=== PATIENT | male | born 1950 | race Caucasian/White ===

== ENCOUNTER 2023-11-20 14:43 | Emergency (ER) | payer MEDICARE, OTHER, SELFPAY ==
[2023-11-20 14:49] VITALS: BP 121/64
[2023-11-20 15:17] LABS: % Basophils 0.5 % (0-2); % Eosinophils 3.2 % (0-6); % Immature Granulocytes 0.3 % (0-0.5); % Lymphocytes 24.6 % (20.5-51.1); % Monocytes 10.5 % (1.7-9.3); % Neutrophils 60.9 % (42.2-75.2); Absolute Eosinophils 0.2 10^3/uL (0-0.7); Absolute Lymphocytes 1.5 10^3/uL (1.2-3.4); Absolute Monocytes 0.7 10^3/uL (0.1-0.6); Absolute Neutrophils 3.8 10^3/uL (1.4-6.5); Hematocrit 36.6 % (39.0-52.0); Hemoglobin 12.2 g/dL (13.0-18.0); Mean Corp Hgb Conc. 33.3 g/dL (33.0-37.0); Mean Corpuscular Hgb 34.2 pg (27.0-31.0); Mean Corpuscular Volume 102.5 fL (80.0-94.0); Mean Platelet Volume 9.8 fL (7.4-10.4); Nucleated Red Blood Cells % 0 % (-); Platelet Count 239 10^3/uL (130-400); Red Blood Cell Count 3.57 10^6/uL (4.70-6.10); Red Cell Dist. Width 13.7 % (11.5-14.5); White Blood Cell Count 6.2 10^3/uL (4.8-10.8)
[2023-11-20 15:50] LABS: ALT (SGPT) < 10 U/L (0-50); AST (SGOT) 24 U/L (17-59); Alkaline Phosphatase 124 U/L (38-126); Blood Urea Nitrogen 24 mg/dl (9-20); Calcium 9.8 mg/dl (8.4-10.2); Carbon Dioxide 23 mmol/L (22-30); Chloride 105 mmol/L (98-107); Glucose 158 mg/dl (70-99); Potassium 4.8 mmol/L (3.5-5.1); Sodium 136 mmol/L (135-145); Total Bilirubin 0.6 mg/dl (0.2-1.3); Total Protein 7.1 g/dl (6.3-8.2); eGFR 41.78
[2023-11-20] MEDS: LIDOCAINE 4% PATCH 1 PATCH TOPICAL (19:45)
[2023-11-20] MEDS: MORPHINE SULFATE 2 MG IV (19:45)
--- NOTE | 2023-11-20 20:07 | ED.GENMED ---
History of Present Illness
General
Chief Complaint: Back Pain
Source: patient and spouse
Time Seen by Provider: 11/20/23 19:11
Travel History
Have you had any contact with someone who has COVID-19?: No
Do you have any symptoms of coronavirus? Fever > 100 degrees, chills, cough, shortness of breath, sore throat, loss of taste or smell, muscle aches, or headache?: No
History of Present Illness
History of Present Illness:
73-year-old male with past medical history of COPD, A-fib, CHF, CAD, previous [place], diabetes presenting to the emergency department at request of his solar electric practitioner for evaluation after patient had an accidental fall while on vacation in the [place] about 2 weeks ago stating he fell backwards onto his back and had significant pain and ecchymosis since the fall. Patient was prescribed tramadol and a muscle relaxant while abroad but states this did not really seem to help him. Patient
had a visit with his solar electric practitioner today and they were discussing the amount of back pain the patient is in and due to patient being anticoagulated on Xarelto it was recommended patient come to the ER for further evaluation for possible
retroperitoneal bleeding. states that patient's bruising has gotten significantly better since the fall. Patient denies any abdominal pain, focal weakness or numbness., Lightheadedness or dizziness, chest pain or shortness of breath.
Patient denies any other history of previous back injuries.
Past History
Past History
ED Past Medical History: Arrthythmia (Atrial fibrillation), CAD, CHF, COPD, CVA, GERD, HTN, Hypercholesterolemia, NIDDM, [place] and Other (Sleep apnea, PNA)
ED Past Surgical History: Cardiac (cabg, pacemaker, ICD) and Orthopedic
Social History
Tobacco: Smoker
Alcohol: Daily (Vodka 2-3 glasses)
Drug: None
Personal:
Living: with family
Employment: Employed
Family History
Family History: Other (Noncontributory)
Review of Systems
Review of Systems
All Other Systems: ROS reviewed and negative except as documented in HPI and ROS
Phy Exam
Physical Exam
Physical Exam:
GENERAL: Alert , in no apparent distress
EYE: clear conjunctiva b/l
HEAD: NCAT
ENT: o/p clr, mmm.
CARDIAC: Regular rate and rhythm .
LUNGS: Clear breath sounds bilaterally, no acute respiratory distress, no wheezes/rales/rhonchi
ABDOMEN: Soft, without focal tenderness, no r/g, no cvat
Back: Limited range of motion secondary to pain. Diffuse lumbar tenderness without any focality
NEUROLOGICAL: Alert and oriented
SKIN: Warm and dry, skin intact.
MUSCULOSKELETAL: well perfused.
PSYCH: Normal and appropriate interaction.
Scores
Heart Failure Risk
Heart Failure Risk Score: Not Applicable
Heart Score for Chest Pain Patients
STEMI patient?: Not applicable
Withdrawal Assessment of Alcohol
Withdrawal Assessment Completed?: Not applicable
Course
Orders/Labs/Results
Orders:
Orders
11/20/23 15:04
Complete Blood Count/With Diff Urgent
Comprehensive Metabolic Panel Urgent
11/20/23 19:14
CT Abd/pel Without Iv Or Oral Urgent
Comment:
Reason For Exam: fall, on xarelto,back/flank pain, CKD
11/20/23 19:21
Lidocaine [Lidocaine 4% Patch] 1 patch TOPICAL NOW STA
Morphine Sulfate 2 mg IV NOW STA
Abnormal Lab Results
11/20/23
15:04
RBC 3.57 L 10^6/uL
(4.70-6.10)
Hgb 12.2 L g/dL
(13.0-18.0)
Hct 36.6 L %
(39.0-52.0)
MCV 102.5 H fL
(80.0-94.0)
MCH 34.2 H pg
(27.0-31.0)
Absolute Monos (auto) 0.7 H 10^3/uL
(0.1-0.6)
Monocytes % 10.5 H %
(1.7-9.3)
BUN 24 H mg/dl
(9-20)
Creatinine 1.7 H mg/dL
(0.7-1.3)
Glucose 158 H mg/dl
(70-99)
11/20/23 15:04
11/20/23 15:04
Vital Signs
Initial and Last Documented VS:
Initial Vital Signs
Temp Pulse Resp BP Pulse Ox
98.2 F 77 18 121/64 98
11/20/23 14:49 11/20/23 14:49 11/20/23 14:49 11/20/23 14:49 11/20/23 14:49
Last Documented Vital Signs
Temp Pulse Resp BP Pulse Ox
98.2 F 78 18 140/75 98
11/20/23 14:49 11/20/23 21:26 11/20/23 21:26 11/20/23 21:26 11/20/23 21:26
MDM/Problems Addressed
Differential Diagnosis Includes:
Lumbar fracture, muscle strain, I have less concern for retroperitoneal bleeding given fall was 2 weeks ago and patient is hemodynamically stable with a baseline hemoglobin and baseline renal function
MDM/Problems Addressed:
73-year-old male presenting emergency department for evaluation at the request of solar electric practitioner for imaging of possible retroperitoneal bleeding from a fall 2 weeks ago. Patient has been taking tramadol and a muscle relaxant without any relief. No
fevers or infectious symptoms. Will obtain CT imaging. Will order pain medication. Disposition pending.
Chronic conditions affecting care: Arrhythmia
Acute Exacerbation and/or Progression of Chronic Illness: Arrhythmia
*Radiology
Radiology exam reviewed: radiology read reviewed
*Pulse Oximetry
Patient hypoxic: no
*Critical Care Note
Total Time (30-74mins, 75-104mins- exclusive of procedures): Not Applicable
Data Reviewed
Review of Other/Old Records Reveals: Labs and Records
Source: patient and physician
Patient Management
Escalation/DeEscalation of care consider admission/obs:
Patient has a T12 compression fracture of about 50% and a sacral fracture with 5 mm of displacement. This is nonoperative. Fall happened 2 weeks ago and patient is without any neurologic findings. He is stable for discharge home and outpatient
follow-up pediatrics. Prescription for Percocet sent to pharmacy for pain control. Aware of return precautions but otherwise stable for discharge home.
ED Attending Note
-
Portions of this chart may have been created with voice recognition software.� Occasional wrong word or��sound alike� substitutions may have occurred due to the inherent limitations of voice recognition software.
Discharge Plan
Departure
Patient Disposition: Home (Routine Discharge)
Date of Disposition: 11/20/23
Time of Disposition: 21:05
Patient with high blood pressure during this ER visit?: No
Discharge Problem:
T12 compression fracture, Closed sacral fracture
Instructions: Vertebral Compression Fracture (DC)
Prescriptions:
New
oxycodone-acetaminophen [Percocet] 5-325 mg Tablet
1 tab PO Q6HPRN PRN (Reason: pain) Qty: 10 0RF
No Action
pantoprazole 40 MG tablet,delayed release (DR/EC)
40 mg PO DAILY
rosuvastatin [Crestor] 40 MG tablet
40 mg PO NOON
carvedilol 3.125 MG tablet
3.125 mg PO BID
multivitamin with folic acid [Tab-A-Elli] 1 TABLET tablet
1 tab PO DAILY
aspirin 81 MG tablet,delayed release (DR/EC)
81 mg PO DAILY
coenzyme Q10 [Co Q-10] 100 MG capsule
100 mg PO DAILY
lisinopril 2.5 MG tablet
2.5 mg PO DAILY Qty: 30 2RF
Xarelto 20 MG tablet
20 mg PO QPM 0RF
metformin 1,000 MG tablet
1,000 mg PO DAILY Qty: 30 2RF
potassium chloride [Klor-Con M20] 20 mEq Tablet,Er Particles/Crystals
20 meq PO DAILY
vitamin E 400 unit Tablet
400 unit PO DAILY
escitalopram oxalate 10 mg Tablet
10 mg PO DAILY
Jardiance 10 mg Tablet
10 mg PO DAILY
thiamine HCl (vitamin B1) 100 mg Tablet
100 mg PO BID Qty: 100 0RF
folic acid 1 mg Tablet
1 mg PO DAILY Qty: 30 0RF
furosemide 40 mg Tablet
40 mg PO DAILY Qty: 30 0RF
Referrals:
Renzo Diez MD [Active] - (Pain Management)
Keegan Prado DO [Active] - (Ortho)
August Glasgow MD [Family Provider] -
Interventions
Interventions:
*Risk Screen - Suicide Last Done: 11/20/23 19:35
*General Assessment Last Done: 11/20/23 19:35
*Neglect/Abuse Screening Last Done: 11/20/23 19:35
ED- Fall Risk Assessment Last Done: 11/20/23 19:35
*ED COVID-19 Vaccine History Last Done: 11/20/23 19:35
*Nursing Disposition Last Done: 11/20/23 21:27
ED-Musculoskeletal Assessment Last Done: 11/20/23 19:35
Discharge Date and Time
Discharge Date/Time: 11/20/23 21:27
Print Language: TURKMEN
[2023-11-20 21:26] VITALS: BP 140/75
== END 2023-11-20 21:27 | disposition home or self-care (01) ==
LOC: EMR 14:43
PROVIDERS: Emergency Medicine; EMERGENCY PHYSICIAN Emergency Medicine; FAMILY PHYSICIAN Internal Medicine
DX: S22.080A Wedge compression fracture of T11-T12 vertebra, initial encounter for closed fracture (principal); S32.10XA Unspecified fracture of sacrum, initial encounter for closed fracture; W19.XXXA Unspecified fall, initial encounter; J44.9 Chronic obstructive pulmonary disease, unspecified; I48.91 Unspecified atrial fibrillation; I11.0 Hypertensive heart disease with heart failure; I50.9 Heart failure, unspecified; I25.10 Atherosclerotic heart disease of native coronary artery without angina pectoris; F17.200 Nicotine dependence, unspecified, uncomplicated
CPT/HCPCS: 99284; 96374; 74176; 80053; 85025

== ENCOUNTER → 2024-01-14 10:26 | Outpatient (REF) | payer MEDICARE, OTHER, SELFPAY | LOC: RAD 10:26 | PROVIDERS: ATTENDING PHYSICIAN Orthopaedic Surgery | DX: S32.10XA Unspecified fracture of sacrum, initial encounter for closed fracture (principal) | CPT/HCPCS: 77080 ==

== ENCOUNTER → 2024-01-26 16:50 | Outpatient (REF) | payer MEDICARE, OTHER, SELFPAY | LOC: RAD 16:50 | PROVIDERS: ATTENDING PHYSICIAN Internal Medicine | DX: R05.3 Chronic cough (principal) | CPT/HCPCS: 71046 ==

== ENCOUNTER → 2024-07-23 15:39 | Outpatient (REF) | payer MEDICARE, OTHER, SELFPAY | LOC: RCS 15:39 | PROVIDERS: ATTENDING PHYSICIAN Internal Medicine Interventional Cardiology; FAMILY PHYSICIAN Internal Medicine | DX: I35.0 Nonrheumatic aortic (valve) stenosis (principal) | CPT/HCPCS: 93306; Q9950 ==

== ENCOUNTER 2024-08-05 21:39 | Inpatient (IN) | payer MEDICARE, OTHER, SELFPAY ==
[2024-08-05] VITALS (8 sets, daily range): BP systolic 93–127; BP diastolic 40–79; BMI 24.6; BMI 24.1
[2024-08-05 16:47] LABS: % Basophils 0.7 % (0-2); % Immature Granulocytes 0.4 % (0-0.5); % Lymphocytes 23.3 % (20.5-51.1); % Neutrophils 64.6 % (42.2-75.2); Absolute Basophils 0.1 10^3/uL (0-0.2); Absolute Eosinophils 0.2 10^3/uL (0-0.7); Absolute Lymphocytes 1.8 10^3/uL (1.2-3.4); Absolute Monocytes 0.7 10^3/uL (0.1-0.6); Absolute Neutrophils 4.9 10^3/uL (1.4-6.5); Hematocrit 31.6 % (39.0-52.0); Hemoglobin 10.1 g/dL (13.0-18.0); Mean Corpuscular Hgb 32.4 pg (27.0-31.0); Mean Corpuscular Volume 101.3 fL (80.0-94.0); Mean Platelet Volume 10.3 fL (7.4-10.4); Nucleated Red Blood Cells % 0 % (-); Platelet Count 231 10^3/uL (130-400); Red Blood Cell Count 3.12 10^6/uL (4.70-6.10); Red Cell Dist. Width 13.8 % (11.5-14.5); White Blood Cell Count 7.6 10^3/uL (4.8-10.8)
[2024-08-05] MEDS: ZOFRAN 4 MG IV (16:51)
[2024-08-05] MEDS: DILAUDID 0.5 MG IV (16:52)
[2024-08-05 17:14] LABS: NT-proBNP 4590 pg/ml; Troponin I 0.034 ng/ml
--- NOTE | 2024-08-05 17:27 | ED.GENMED ---
History of Present Illness
General
Chief Complaint: Weakness
Source: patient, records, spouse and physician
Exam Limitations: none
Time Seen by Provider: 08/05/24 16:39
Nursing documentation reviewed up to this point in time: agreed with
History of Present Illness
History of Present Illness:
74-year-old male referred from nephrology for evaluation and admission has a pacemaker he is a drinker, recently stopped drinking he has fatigue he feels dizzy and falling had an echocardiogram recently and labs when I evaluated him he is
complaining of some mid abdominal pain, apparently his H&H has been dropping
Past History
Past History
ED Past Medical History: Arrthythmia (Atrial fibrillation), CAD, CHF, COPD, CVA, GERD, HTN, Hypercholesterolemia, NIDDM, [place] and Other (Sleep apnea, PNA)
ED Past Surgical History: Cardiac (cabg, pacemaker, ICD) and Orthopedic
Social History
Tobacco: Smoker
Alcohol: Former (Vodka 2-3 glasses)
Drug: None
Personal:
Living: with family
Employment: Employed
Family History
Family History: Other (Noncontributory)
Review of Systems
Review of Systems
All Other Systems: Not applicable
Constitutional: Reports weight loss and fatigue; Denies not done
EENT: Reports no symptoms
Respiratory: Reports trouble breathing
ABD/GI: Reports abdominal pain
: Reports no symptoms
Musculoskeletal: Reports no symptoms
Neurological: Reports dizzy and weakness
Phy Exam
Physical Exam
Physical Exam:
Physical Exam
General: Disheveled elderly male looks
Neck: Dry lips noted
Heart: s1/s2 regular rate and rhythm, no murmur. equal radial pulses.
Lungs: Crackles
Abdomen: Tender in the epigastric
Neuro: alert and oriented. no focal neurological deficits
Skin: no rash
Psychiatric: cooperative
Extremities: no edema.
Course
Orders/Labs/Results
Orders:
Orders
08/05/24 16:18
Electrocardiogram (*1) Urgent
Reason for Study: Fatigue / Weakness
EKG- Treatment ONCE
08/05/24 16:37
Complete Blood Count/With Diff Urgent
NT-proBNP Urgent
Troponin I Urgent
08/05/24 16:46
Add On- LAB Urgent
Tests Added?: lipase
HYDROmorphone [Dilaudid] 0.5 mg IV NOW STA
Ondansetron Injectable [Zofran] 4 mg IV NOW STA
CR Chest Portable - 1 View Urgent
Comment:
Reason For Exam: sob
Reason Study Needs to be Portable: Patient Unstable
08/05/24 16:48
CT Abd/pel Without Iv Or Oral Urgent
Comment:
Reason For Exam: pain naemai driking
CT Cervical Spine W/o Iv Contr Urgent
Comment:
Reason For Exam: falls
CT Head W/o Iv Contrast Urgent
Comment:
Reason For Exam: falls
08/05/24 16:49
Add On- LAB Urgent
Tests Added?: magnesium
08/05/24 17:04
Ammonia Urgent
Comprehensive Metabolic Panel Routine
Lipase Routine
Magnesium Routine
08/05/24 18:00
0.9% Sodium Chloride 1000 ml [Nss] 1,000 ml Mvi, Adult [Multivitamin] 10 ml Thiamine Injection 100 mg IV 125 mls/hr
08/05/24 18:[address] Non Medication Order As Directed
Physician Order: please TT me when CT complete and read
Above order entered?: Yes
08/05/24 20:03
Add On- LAB Routine
Tests Added?: Vitamin B12, TSH with reflex to T4, Vitamin B1
Abnormal Lab Results
08/05/24 08/05/24
16:37 17:04
RBC 3.12 L 10^6/uL
(4.70-6.10)
Hgb 10.1 L g/dL
(13.0-18.0)
Hct 31.6 L %
(39.0-52.0)
MCV 101.3 H fL
(80.0-94.0)
MCH 32.4 H pg
(27.0-31.0)
MCHC 32.0 L g/dL
(33.0-37.0)
Absolute Monos (auto) 0.7 H 10^3/uL
(0.1-0.6)
Sodium 134 L mmol/L
(135-145)
Chloride 97 L mmol/L
(98-107)
BUN 30 H mg/dl
(9-20)
Creatinine 1.7 H mg/dL
(0.7-1.3)
Glucose 197 H mg/dl
(70-99)
Ammonia < 9 L umol/L
(9-30)
08/05/24 16:37
08/05/24 17:04
Vital Signs
Initial and Last Documented VS:
Initial Vital Signs
Temp Pulse Resp BP Pulse Ox
98.0 F 60 16 117/68 98
08/05/24 16:14 08/05/24 16:14 08/05/24 16:14 08/05/24 16:14 08/05/24 16:14
Last Documented Vital Signs
Temp Pulse Resp BP Pulse Ox
98.0 F 75 15 127/56 100
08/05/24 16:14 08/05/24 20:00 08/05/24 20:00 08/05/24 19:00 08/05/24 20:00
*Radiology
Radiology exam reviewed: radiology read reviewed
*Pulse Oximetry
Patient hypoxic: no
*EKG
Interpreted by ED Provider?: Yes
Interpretation: abnormal
Comparison EKG: no comparison EKG present
Heart Rate: 78
Rate: normal
Rhythm: sinus
Ischemia: non-specific ST changes
*Manager Meeting Interpretation
Rate: normal
Interpretation: normal
Heart Rate: 78
Rhythm: sinus
*Critical Care Note
Total Time (30-74mins, 75-104mins- exclusive of procedures): Not Applicable
Update Note
Update Note:
Update patient feeling better after Dilaudid abdominal pains and new symptom for him will check CT to head cervical spine is has having fall CT of the abdomen without contrast admit patient is in agreement as is his spouse
Update imaging reports noted patient much improved with some Dilaudid and Zofran, lipase noted, perhaps this is all related to alcohol withdrawal or gastritis
ED Attending Note
-
Portions of this chart may have been created with voice recognition software.� Occasional wrong word or��sound alike� substitutions may have occurred due to the inherent limitations of voice recognition software.
Discharge Plan
Departure
Patient Disposition: Admit
Date of Disposition: 08/05/24
Time of Disposition: 20:07
Admit to: Med/Surg
Presentation/result/management discussed w/ accepting MD/DO: Hospitalist
Patient with high blood pressure during this ER visit?: Yes
Condition: Fair
Discharge Problem:
Permanent atrial fibrillation, Hypertensive heart disease with heart failure, Type 2 diabetes mellitus with diabetic nephropathy, Dyspnea, Acute on chronic systolic CHF (congestive heart failure), Renal insufficiency, Alcohol use disorder
Prescriptions:
No Action
pantoprazole 40 MG tablet,delayed release (DR/EC)
40 mg PO DAILY
rosuvastatin [Crestor] 40 MG tablet
40 mg PO NOON
carvedilol 3.125 MG tablet
3.125 mg PO BID
multivitamin with folic acid [Tab-A-Elli] 1 TABLET tablet
1 tab PO DAILY
aspirin 81 MG tablet,delayed release (DR/EC)
81 mg PO DAILY
coenzyme Q10 [Co Q-10] 100 MG capsule
100 mg PO DAILY
lisinopril 2.5 MG tablet
2.5 mg PO DAILY Qty: 30 2RF
Xarelto 20 MG tablet
20 mg PO QPM 0RF
metformin 1,000 MG tablet
1,000 mg PO DAILY Qty: 30 2RF
potassium chloride [Klor-Con M20] 20 mEq Tablet,Er Particles/Crystals
20 meq PO DAILY
vitamin E 400 unit Tablet
400 unit PO DAILY
escitalopram oxalate 10 mg Tablet
10 mg PO DAILY
Jardiance 10 mg Tablet
10 mg PO DAILY
thiamine HCl (vitamin B1) 100 mg Tablet
100 mg PO BID Qty: 100 0RF
folic acid 1 mg Tablet
1 mg PO DAILY Qty: 30 0RF
furosemide 40 mg Tablet
40 mg PO DAILY Qty: 30 0RF
oxycodone-acetaminophen [Percocet] 5-325 mg Tablet
1 tab PO Q6HPRN PRN (Reason: pain) Qty: 10 0RF
Referrals:
August Glasgow MD [Family Provider] -
Interventions
Interventions:
*Risk Screen - Suicide Last Done: 08/05/24 16:14
*General Assessment Last Done: 08/05/24 16:31
*Neglect/Abuse Screening Last Done: 08/05/24 16:14
ED- Fall Risk Assessment Last Done: 08/05/24 16:31
*ED COVID-19 Vaccine History Last Done: 08/05/24 16:31
ED- Cardiac Assessment Last Done: 08/05/24 16:31
ED- Neurological Assessment Last Done: 08/05/24 16:31
ED- Pulmonary Assessment Last Done: 08/05/24 16:31
Discharge Date and Time
Print Language: KENYAN
[2024-08-05 17:31] LABS: Ammonia < 9 umol/L (9-30)
[2024-08-05 17:35] LABS: ALT (SGPT) < 10 U/L (0-50); AST (SGOT) 22 U/L (17-59); Albumin 3.9 g/dl (3.5-5.0); Alkaline Phosphatase 98 U/L (38-126); Blood Urea Nitrogen 30 mg/dl (9-20); Calcium 8.8 mg/dl (8.4-10.2); Carbon Dioxide 27 mmol/L (22-30); Chloride 97 mmol/L (98-107); Estimated Creatinine Clearance 42 ml/min; Glucose 197 mg/dl (70-99); Lipase 42 U/L (23-300); Magnesium 2.2 mg/dl (1.6-2.3); Potassium 3.7 mmol/L (3.5-5.1); Sodium 134 mmol/L (135-145); Total Bilirubin 0.9 mg/dl (0.2-1.3); Total Protein 6.9 g/dl (6.3-8.2); eGFR 41.52
[2024-08-05] MEDS: MULTIVITAMIN 1011 ML IV (18:05)
[2024-08-05] MEDS: MULTIVITAMIN 1011 MG IV (18:05)
--- NOTE | 2024-08-05 19:38 | HPS.HSE ---
Family Physician
-
Family Physician: August Glasgow
Chief Complaint
-
shortness of breath/weakness
History of Present Illness
Patient is a 74-year-old male with past medical history significant for hypertension, CAD, CHF, COPD, CVA, GERD, hyperlipidemia, NIDDM and Hx [place] who presented to [facility] for evaluation of increased exertional shortness of breath and weakness.
Patient was at an apt with Dr. Broderick earlier today and she had him brought to ER for evaluation and treatment of severe shortness of breath and weakness in her office. Patient and describe severe shortness of breath with minimal exertion, and
states will happen at rest when lying flat. Denies any recent weight gain, reports weight loss of approximately 20 pounds in last 6 months. is visibly distraught by decline in past few months but mostly the last 2-3 weeks. She has been trying
to assist with ambulation at home and tearfully reports, 'I can't be the human walker anymore, I can't hold him up.' Patient has had multiple falls at home in the last few weeks resulting in head strikes. Patient denies any recently illness, chest
pain, nausea, vomiting, fever, chills, constipation, diarrhea or urinary symptoms.
Medical History
Past Medical History
Past Medical History: Reports Other
Additional Past Medical History:
benign hypertension
CAD
CHF
COPD
CVA
GERD
hyperlipidemia
NIDDM
Hx [place]
Past Surgical History: Reports Other
Additional Past Surgical History:
CABG x2
ICD implantation (2014)
cysto/left ureteroscopy/laser litho and stent (03/2020)
angioplasty (2014)
AICD (2022)
Social History
Tobacco: Smoker (1 pack per day for 50 years, minimal 50 pack year history )
Alcohol: Daily ('couple' vodkas everyday)
Drug: None
Personal:
Living: With Family
Employment: Retired
Family History
Family History: Not pertinent
Allergies / Home Medications
Allergies reflects when Allergies were last updated in [employer].
Home Medications with original date entered in [employer]
Allergy/Medication List:
Allergies
Allergy/AdvReac Type Severity Reaction Status Date / Time
No Known Allergies Allergy Verified 08/05/24 16:17
Home Medications
pantoprazole 40 mg tablet,delayed release 40 mg PO DAILY Gastrointestinal issue 09/28/13
rosuvastatin 40 mg tablet (Crestor) 40 mg PO QPM High cholesterol 12/19/19
carvedilol 3.125 mg tablet 3.125 mg PO BID Blood pressure 03/30/20
multivitamin with folic acid 400 mcg tablet (Tab-A-Elli) 1 tab PO DAILY Supplement 03/30/20
aspirin 81 mg tablet,delayed release 81 mg PO DAILY Blood clot prevention/tx 06/09/20
coenzyme Q10 100 mg capsule (Co Q-10) 100 mg PO DAILY Supplement 06/09/20
metformin 1,000 mg tablet 1,000 mg PO DAILY Diabetes #30 tabs 06/13/20
rivaroxaban 20 mg tablet (Xarelto) 20 mg PO QPM 06/13/20
empagliflozin 10 mg tablet (Jardiance) 10 mg PO DAILY Diabetes 12/04/22
potassium chloride 20 mEq tablet,extended release(part/cryst) (Klor-Con M) 20 meq PO DAILY Supplement 12/04/22
vitamin E 400 unit tablet 400 unit PO DAILY Supplement 12/04/22
folic acid 1 mg tablet 1 mg PO DAILY #30 tabs 04/04/23
furosemide 40 mg tablet 40 mg PO DAILY Fluid Retention/Swelling #30 tabs 04/04/23
duloxetine 60 mg capsule,delayed release (Cymbalta) 60 mg PO DAILY 08/05/24
Review of Systems
-
History Source: Patient and Family
Constitutional: Reports Weight Loss and Fatigue
EENT: Reports No Symptoms
Respiratory: Reports Cough and Trouble Breathing (shortness of breath with minimal exertion )
Cardiac: Reports No Symptoms
Abdomen/GI: Reports Other (decreased appetite)
: Reports No Symptoms
Musculoskeletal: Reports Other (generalized weakness)
Skin: Reports Other (multiple bruising new and old )
Neurological: Reports Weakness
Endocrine: Reports No Symptoms
Hematologic/Lymphatic: Reports No Symptoms
Psych: Reports No Symptoms
Physical Exam
Vital Signs
Vital Signs
Temp Pulse Resp BP Pulse Ox
98.0 F 73 25 127/56 98
08/05/24 16:14 08/05/24 19:15 08/05/24 19:15 08/05/24 19:00 08/05/24 19:15
Physical Exam
General: Well Developed, Well Nourished, No Apparent Distress, Comfortable, Conversant and Poor Appetite
HEENT: NormoCephalic, Moist mucous membranes, Atraumatic, [place] Conjunctivae, Nose Appears Normal and Ears Appear Normal
Respiratory: Clear, Rhonchi, Non Labored Respirations and Decreased Breath Sounds
Cardiac: S1/S2 and Regular Rhythm; No Murmur, Rub or Gallop
Breast: Deferred by me
GI: Soft, Non Tender, Normal Bowel Sounds and Distended; No Organomegaly
Rectal: Deferred by Provider
Genito-urinary: Deferred by me
Musculoskeletal: No Clubbing, No Cyanosis and No Edema
Skin: Warm, IV/Catheter Site and Other (multiple bruising new and old r/t recent falls at home ); No Rash
Neuro: Awake, Alert, AO x 3 and Nonfocal/grossly intact
Hematologic/Lymphatic: No Lymphadenopathy
Psych: Calm, Intact Judgment/Insight and Depressed
Laboratory Results
-
08/05/24 16:37
08/05/24 17:04
Laboratory Results
Total Bilirubin 0.9 mg/dl (0.2-1.3) 08/05/24 17:04
AST 22 U/L (17-59) 08/05/24 17:04
ALT < 10 U/L (0-50) 08/05/24 17:04
Alkaline Phosphatase 98 U/L (38-126) 08/05/24 17:04
Troponin I 0.034 ng/ml 08/05/24 16:37
Lipase 42 U/L (23-300) 08/05/24 17:04
Data Reviewed
-
Diagnostic Radiology: Report Reviewed by me (CXR: No acute cardiopulmonary process.)
CT Scan: Report Reviewed by me (Abd/Pelvis, C-Spine, Head (see reports))
Medical Tests (Nuc Med, Echo, EKG etc): Report Reviewed by me (EKG: Atrial Fibrillation Ventricular-paced rhythm ABNORMAL ECG)
Lab Data: Labs Reviewed by me (hgb 10.1/hct 31.6, BUN 30, Creat 1.7, )
Impression/Plan
-
IMPRESSION/PLAN:
#acute on chronic CHF
BNP:
ECHO (07/23/2024): Normal left ventricular chamber size. Moderate to severely reduced left
ventricular systolic function. Left ventricular ejection fraction is 35% by
Toribio's Method of Disc (visually 30 to 35%). Mid to distal lucas-septal and
apical akinesis. Mild concentric left ventricular hypertrophy.
Normal right ventricular size and function.
Calcified, restricted aortic valve. Peak gradient 38mmHg/Mean gradient 21mmHg -
using an LVOT of 2.1cm the estimated aortic valve area is 1.1cm2. Visually
aortic valve appears more stenotic and I question whether there could be low-
flow/low gradient severe aortic valve stenosis. Mild aortic regurgitation.
Tricuspid valve opens normally. Mild to moderate tricuspid regurgitation.
Estimated pulmonary artery pressure of 50-55 mmHg assuming a right atrial
pressure of 3 mmHg.
Mild to moderate mitral regurgitation.
- Admit to telemetry
- Consult cardiology
- IV Lasix
- continue aspirin and carvedilol
- daily weights
#failure to thrive
multiple falls at home
- PT/OT eval
#benign hypertension
- continue carvedilol
#CAD
#hyperlipidemia
- continue rosuvastatin
#anemia
hgb 10.1/hct 31.6
- monitor h/h
#GERD
- continue pantoprazole
#NIDDM
- continue Jardiance
- AccuChecks AC & HS
- SSI
#COPD
#CVA
#Hx SD
Code Status: DNR
DVT Prophylaxis: Xarelto
--- NOTE | 2024-08-05 19:41 | W.PN.UPDATE ---
Update Note
Progress Note Update
This is an addendum to H&P written by HELENE Malone
I saw and examined the patient.
The MOLDER FLOOR's note was reviewed and I agree with the note.
Comment:
Mr. Nando Russo is a 74 yo man with hx atrial fibrilation, CAD s/p CABG, CHF, COPD, CVA, GERD, HTN, HLD, NIDDM, hx alcohol abuse presents to the ER with shortness of breath and unstable gait. He was sent from Nephrology clinic. History
obtained from patient and at bedside. He has become increasingly short of breath, unable to take several steps without becoming very exhausted and needing a break. She reports he doesn't respond to her during these moments and looks
tremulous. He quit drinking several days ago - prior was drinking 2-3 drinks/night for years.
Triage VS: T 98, P 60, RR 16, BP 117/68, SpO2 98%
LABS: WBC 7.6, Hg 10.1, PLT 231, Na 134, K+ 3.7, Cl 97, BUN 30, Cr 1.7 (baseline), Ammonia < 9
BNP 4590, Lipase [address]
CERVICAL SPINE CT
IMPRESSION:
1. No acute intracranial abnormality noted.
2. No acute fracture or subluxation of the cervical spine.
Abdomen/Pelvis CT
IMPRESSION:
1. Chronic T12 compression deformity with possible superimposed acute/subacute component. Recommend correlation for any point tenderness in this region.
2. Partially healed minimally displaced fractures involving the posterior left 9th through 12th ribs.
3. No other significant acute abnormality identified in the abdomen or pelvis, within the limits of unenhanced CT, as described above.
4. Trace left pleural effusion.
CXR
IMPRESSION:
No acute cardiopulmonary process.
Heart Failure reduced EF, Acute Exacerbation
Severe
-TTE 07/23/24 with EF 35%; concern for low flow/low gradient severe ; mild to moderate MRJackelin GannCompared to prior study 04/01/2023 aortic valve gradients are lower than noted
previously but visually aortic valve appears severely stenotic. Left ventricular ejection fraction previously noted to be 45 to 50% and now visually
30 to 35%. Pulmonary artery pressure previously 34 mmHg now 50 to 55 mmHg.' Patient had follow up appt with Dr. Moreno later this month, has not yet discussed results
-lasix 60mg IV x 1 now and monitor response - will hold off on further Lasix until evaluated by Cardiology
-admit to telemetry
-cardiology consult
-BOIL OFF MACHINE OPERATOR CLOTH Coreg, Jardiance
-strict I/O, daily weights
-PT/OT, orthostats
CAD s/p CABG
NIDDM
HLD
Atrial Fibrillation - BOIL OFF MACHINE OPERATOR CLOTH Xarelto
Hx Alcohol Abuse
Unstable Gait
-F/U B12, TSH, Vitamin B1
-patient quit drinking 3 days ago
-trial of high dose thiamine
DVT PPx Xarelto
76 minutes spent on patient care
[2024-08-05 21:15] LABS: TSH Reflex To Free T4 0.87 uIU/ml (0.47-4.68)
[2024-08-05 21:34] LABS: Vitamin B12 325 pg/ml (239-931)
[2024-08-05] MEDS: KCL 20 MEQ PO (21:43)
[2024-08-05] MEDS: LASIX 60 MG IV (21:44)
[2024-08-05] MEDS: FLUSH (NSS) 1 FLUSH IV (21:46)
--- NOTE | 2024-08-05 22:15 | PTCARENOTE ---
Pt arrived from ED via stretcher and ambulated to bed. Pt is AAOx3, VSS sating 99% on 3L NC, and w/o complaints of pain. Pt is oriented to room, resting comfortably w/ call saini within reach.
[2024-08-05 22:45] LABS: Glucose - Point of Care 252 mg/dl (70-99)
[2024-08-05] MEDS: XARELTO 20 MG PO (22:45)
[2024-08-06] VITALS (8 sets, daily range): BP systolic 86–116; BP diastolic 46–59; PULSE 59–86; O2SAT 100
[2024-08-06] MEDS: THIAMINE INJECTION 255 MG IV ×3 (03:58→18:05)
[2024-08-06 07:33] LABS: Glucose - Point of Care 144 mg/dl (70-99)
[2024-08-06] MEDS: NOVOLOG FLEXPEN-LOW RESISTANCE SC (07:36)
[2024-08-06 07:45] LABS: Hemoglobin 9.2 g/dL (13.0-18.0); Mean Corp Hgb Conc. 31.7 g/dL (33.0-37.0); Mean Corpuscular Hgb 32.9 pg (27.0-31.0); Mean Corpuscular Volume 103.6 fL (80.0-94.0); Mean Platelet Volume 10.6 fL (7.4-10.4); Platelet Count 194 10^3/uL (130-400); Red Cell Dist. Width 13.6 % (11.5-14.5); White Blood Cell Count 6.5 10^3/uL (4.8-10.8)
[2024-08-06] MEDS: FARXIGA 10 MG PO (08:17)
[2024-08-06] MEDS: VITAMIN E 400 UNITS PO (08:17)
[2024-08-06] MEDS: THERAGRAN 1 TABLET PO (08:17)
[2024-08-06] MEDS: PROTONIX 40 MG PO (08:17)
[2024-08-06] MEDS: CYMBALTA DELAYED RELEASE 60 MG PO (08:17)
[2024-08-06] MEDS: FOLVITE 1 MG PO (08:17)
[2024-08-06] MEDS: COREG 3.125 MG PO ×2 (08:17→19:57)
[2024-08-06] MEDS: KCL 20 MEQ PO (08:17)
[2024-08-06] MEDS: ASPIR LOW (ENTERIC COATED) 81 MG PO (08:17)
[2024-08-06 08:33] LABS: Blood Urea Nitrogen 27 mg/dl (9-20); Calcium 8.6 mg/dl (8.4-10.2); Carbon Dioxide 30 mmol/L (22-30); Chloride 98 mmol/L (98-107); Estimated Creatinine Clearance 38 ml/min; Glucose 128 mg/dl (70-99); HDL Cholesterol 74 mg/dl; LDL Cholesterol, Calculated 42 mg/dl; Magnesium 2.1 mg/dl (1.6-2.3); Potassium 3.6 mmol/L (3.5-5.1); Sodium 139 mmol/L (135-145); Total Cholesterol 137 mg/dl (50-199); Triglyceride 108 mg/dl (10-149); Very Low Density Lipoprotein 21 mg/dl (0-30); eGFR 36.33
[2024-08-06 08:45] LABS: Iron 78 ug/dl (49-181)
--- NOTE | 2024-08-06 08:45 | CON.CAR ---
Addendum entered and electronically signed by Sangita OrrDO 08/06/24 20:21:
I saw and examined the patient.
The Handkerchief Folder's note was reviewed and I agree with the note.
Comment: I had the pleasure to see Nando Russo in 402 bed 1. Enmnauel is a 74-year-old male with CAD, history of CABG x2 in 2008 (VERNON to LAD, SVG to LPLB), posterior circulation stroke in setting of coronary angiogram prior to CABG with resultant
vertigo, subsequent balloon angioplasty of the VERNON to LAD 2014, permanent atrial fibrillation (on Xarelto 15 mg), ischemic cardiomyopathy, ICD 2014, aortic stenosis, alcohol abuse, smoker, depression. He was seen by Dr. Moreno in the office
06/2024 and was advised ER evaluation due to frequent falls, nausea. He declined ER evaluation but did get an echocardiogram on 07/23/2024: EF 35%, mid to distal anterior septal and apical akinesis, normal RV size and function, calcified restricted
AV, peak/mean 38/21 mmHg, WES 1.1 cm�. Visually AV appears more stenotic and question whether there could be low-flow low gradient severe , mild AI, mild to moderate TR, mild to moderate MR. Compared to echo 04/01/2023 AV gradients lower but AV
appears severely stenotic. LVEF previously 45 to 50%, now 30 to 35%. PAP 50-55 mmHg, previously 34 mmHg. He was seen with Dr. Broderick 08/05/2024 and sent to ED for severe shortness of breath and weakness with minimal exertion. Denies weight gain.
Reports 20 pound weight loss in past 6 months. reports significant decline in past 2 to 3 weeks and has been unable to support him with ambulation. Patient can only walk very short distance such as to bathroom without becoming weak and having
falls. He has had multiple falls in the last few weeks. Complains of dizziness, feeling like he blacks out, leading to fall. Patient reports no alcohol in the past week but previously drinking 2-3 vodka drinks daily. Yesterday after presenting
to ED complained of severe abdominal pain. Was given Dilaudid in the ED. Unenhanced CT scan abdomen with chronic T12 compression deformity, possibly superimposed acute/subacute component, partially healed rib fractures no other acute abnormality.
GEN: NAD, out of bed to chair
HEENT: supple, anicteric, mmm
LUNGS: CTA, no wheezes/rales
CV: Irregular irregular, 2 out of 6 systolic ejection murmur heard throughout precordium
ABD: soft, BS+, NT/ND
EXT: No edema
Plan:
Acute on chronic Hypoxic respiratory insufficiency c/w acute heart failure with reduced ejection fraction
-Recent echocardiogram 07/23/2024 shows decline in LV function to EF of 30 to 35% with concern for severe aortic stenosis. Also with new elevation in PA pressures. PAP 50 to 55 mmHg
-Has previously had discussions regarding possible TAVR evaluation however he is fearful due to prior CVA following cardiac catheterization in 2008
-He is open to considering and Will discuss with patient's outpatient set illustrator, Dr. Moreno. Patient does have an outpatient appointment with Dr. Moreno next Friday.
-ER BNP 4590, negative troponin, BUN/creatinine stable range 30/1.7., Hemoglobin 10.1.
-Continue usual outpatient heart failure meds including Jardiance, carvedilol
-gentle IV diuresis in setting of
-Will get remote interrogation of ICD to make sure no arrhythmias in setting of dizziness, pt report of blacking out. Pt denies ICD shock
-Daily weights, strict I's and O's
-Check orthostatic vital signs
-PT/OT
A-fib is rate controlled
-Should be on Xarelto 15 mg daily (creat clearance 39 based on creat 1.9 08/06/24, wt 182)
-Hgb trended down overnight - monitor. No complaints of melana, no BM in 3 days.
Continue ASA, statin for history of CAD, no anginal symptoms, troponin negative.
Frequent falls�PT OT evaluation
Original Note:
Consultation
Consultation Request
Date/Time Consultation Requested: 08/05/20242102
Date/Time Consultation Performed: 08/06/2024 0848
Requesting Provider: JOHN Hicks
Performing Provider: JOHN Pichardo for Dr Sangita Orr
Reason for Consultation: heart failure
Medical History
-
Chief Complaint: shortness of breath
History of Present Illness:
74-year-old male with CAD, history of CABG x2 in 2008 (VERNON to LAD, SVG to LPLB), posterior circulation stroke in setting of coronary angiogram prior to CABG with resultant vertigo, subsequent balloon angioplasty of the VERNON to LAD 2014, permanent
atrial fibrillation (on Xarelto 15 mg), ischemic cardiomyopathy, ICD 2014, aortic stenosis, alcohol abuse, smoker, depression. He was seen by Dr. Moreno in the office 06/2024 and was advised ER evaluation due to frequent falls, nausea.
He declined ER evaluation but did get an echocardiogram on 07/23/2024: EF 35%, mid to distal anterior septal and apical akinesis, normal RV size and function, calcified restricted AV, peak/mean 38/21 mmHg, WES 1.1 cm�. Visually AV appears more
stenotic and question whether there could be low-flow low gradient severe , mild AI, mild to moderate TR, mild to moderate MR. Compared to echo 04/01/2023 AV gradients lower but AV appears severely stenotic. LVEF previously 45 to 50%, now 30 to
35%. PAP 50-55 mmHg, previously 34 mmHg.
He was seen with Dr. Broderick 08/05/2024 and sent to ED for severe shortness of breath and weakness with minimal exertion. Denies weight gain. Reports 20 pound weight loss in past 6 months. reports significant decline in past 2 to 3 weeks and
has been unable to support him with ambulation. Patient can only walk very short distance such as to bathroom without becoming weak and having falls. He has had multiple falls in the last few weeks. Complains of dizziness, feeling like he blacks
out, leading to fall. Patient reports no alcohol in the past week but previously drinking 2-3 vodka drinks daily. Yesterday after presenting to ED complained of severe abdominal pain. Was given Dilaudid in the ED. Unenhanced CT scan abdomen with
chronic T12 compression deformity, possibly superimposed acute/subacute component, partially healed rib fractures no other acute abnormality.
ED workup: BNP 4590, BUN/creatinine 30/1.7 (baseline) NA 134, K3.7, Troponin 0.034, Hgb 10.1.
EKG: V paced, underlying A-fib
Head CT: No acute intracranial abnormality, no acute fracture of cervical spine
Chest x-ray: No acute cardiopulmonary process
PMH:
Chronic HFrEF
Moderate to severe with peak/mean 33/19 mmHg by echo 11/14/22
CM EF 25% by echo 06/09/20 and then improved to 45% by echo 11/14/22, echo 07/23/2024 EF 35%
COPD
CKD 3b
Permanent atrial fibrillation
Chronic Xarelto OAC
s/p Medtronic ICD 2014 s/p generator change 12/25/22
CAD
s/p CABG with VERNON to LAD and SVG to L PLB in 2008
cath with balloon angioplasty at VERNON to LAD ostial region in 2014
Type 2 DM
HLD
HTN
BPH
GERD
Ongoing tobacco use
ETOH use disorder, likely moderate to severe
LBBB
Past Medical History
Past Medical History: Other (in HPI)
Past Surgical History: Cardiac (CABG, ICD)
Social History
Tobacco: Smoker
Alcohol: Daily (drinks 3-4 drinks most days of the week)
Drug: None
Personal:
Living: With Family
Family History
Family History: CAD, Cancer and Hypertension
Allergies / Home Medications
Allergy/AdvReac Type Severity Reaction Status Date / Time
No Known Allergies Allergy Verified 08/05/24 16:17
�Medication �Instructions �Recorded �Confirmed �Type
pantoprazole 40 mg tablet,delayed 40 mg PO DAILY Gastrointestinal 09/28/13 08/05/24 History
release issue
rosuvastatin 40 mg tablet (Crestor) 40 mg PO QPM High cholesterol 12/19/19 08/05/24 History
carvedilol 3.125 mg tablet 3.125 mg PO BID Blood pressure 03/30/20 08/05/24 History
multivitamin with folic acid 400 1 tab PO DAILY Supplement 03/30/20 08/05/24 History
mcg tablet (Tab-A-Elli)
aspirin 81 mg tablet,delayed 81 mg PO DAILY Blood clot 06/09/20 08/05/24 History
release prevention/tx
coenzyme Q10 100 mg capsule (Co 100 mg PO DAILY Supplement 06/09/20 08/05/24 History
Q-10)
metformin 1,000 mg tablet 1,000 mg PO DAILY Diabetes #30 tabs 06/13/20 08/05/24 Rx
rivaroxaban 20 mg tablet (Xarelto) 20 mg PO QPM 06/13/20 08/05/24 Rx
empagliflozin 10 mg tablet 10 mg PO DAILY Diabetes 12/04/22 08/05/24 History
(Jardiance)
potassium chloride 20 mEq 20 meq PO DAILY Supplement 12/04/22 08/05/24 History
tablet,extended
release(part/cryst) (Klor-Con M)
vitamin E 400 unit tablet 400 unit PO DAILY Supplement 12/04/22 08/05/24 History
folic acid 1 mg tablet 1 mg PO DAILY #30 tabs 04/04/23 08/05/24 Rx
furosemide 40 mg tablet 40 mg PO DAILY Fluid 04/04/23 08/05/24 Rx
Retention/Swelling #30 tabs
duloxetine 60 mg capsule,delayed 60 mg PO DAILY 08/05/24 08/05/24 History
release (Cymbalta)
Review of Systems
-
History Source: Patient
Constitutional: No Symptoms
Physical Exam
Vital Signs
Temp Pulse Resp BP Pulse Ox
98 F 60 14 114/56 98
08/06/24 08:30 08/06/24 08:17 08/06/24 03:00 08/06/24 08:17 08/06/24 08:30
Lab Results
08/06/24 07:14
08/06/24 07:14
Troponin I 0.034 ng/ml 08/05/24 16:37
Byy-[id number]-[id number] Pept 4590 pg/ml 08/05/24 16:37
GEN: No distress, awake, Ox3
HEENT: supple, anicteric, mmm
LUNGS: CTA, no wheezes/rales
CV: Irregular irregular, 2 out of 6 systolic ejection murmur heard throughout precordium
ABD: soft, BS+, NT/ND
EXT: No edema
NEURO: Gross non-focal
SKIN: No rash
Impression / Plan
-
Primary Care Provider: Dr. Glasgow
Primary Lamination Operator: Dr. Moreno
Assessment:
Shortness of breath
HFrEF
Moderate to severe with peak/mean gradients 38/21, WES 1.1 cm�. Visually aortic valve appears more stenotic, question of low-flow/low gradient severe , mild AI, echo 07/23/2024
CM w/ variable EF, most recent echo 07/23/2024 w/ decline in EF 30-35%
Acute on chronic HFrEF, NYHA class 3-4
Fall at home, possibly syncope
COPD
CKD 3b
Hypomagnesemia
Permanent atrial fibrillation
Chronic Xarelto OAC, creat clearance 39 based on creat 1.9 08/06/2024.
s/p Medtronic ICD 2014 s/p generator change 12/25/22
CAD
s/p CABG with VERNON to LAD and SVG to L PLB in 2008
cath with balloon angioplasty at VERNON to LAD ostial region in 2014
Type 2 DM
HLD
HTN
BPH
GERD
Ongoing tobacco use
ETOH use disorder, likely moderate to severe
LBBB
ECHO 12/20/19: 25-30%, global hypokinesis with mid anteroseptal, mid anterior, apical akinesis, dyskinesis of inferior apex, MAC, mild to moderate , peak/mean gradients 37/18 mmHg, WES 1.0 cm�, mild TR, PAP 37 mmHg
Echo 06/09/20: EF 25-30%, mild MR, mod peak/mean 30/15 mmHg WES 1.3 cm sq, dilated RV with grossly normal function
Echo 10/25/22: EF 45%, apical and anteroseptal wall akinesis, trace MR, mod to sev with peak/mean 33/19 mmHg and WES 0.8 cm sq
Echo 07/23/2024: EF 35% (visually 30 to 35%, mid to distal anteroseptal and apical akinesis, normal RV size and function, calcified, restricted AV. Peak/mean AV gradients 38/21. WES 1.1 cm�. Visually AV appears more stenotic, question whether there
could be a low flow/low gradient severe . Mild AI I. Mild to moderate TR, PAP 50 to 55 mmHg, mild to moderate MR
Plan:
-Presented 08/05/2024 with severe shortness of breath and weakness with minimal exertion. Denies weight gain. Wt 180 lbs in cardiology office 07/06/2024. Overall outpatient wt down 24 lbs over past year (wt 204 lbs 05/2023). Reports 20 pound
weight loss in past 6 months. reports significant decline in past 2 to 3 weeks with worsening weakness and has been unable to support him with ambulation. Patient can only walk very short distance such as to bathroom without becoming weak and
having falls. He has had multiple falls in the last few weeks. Complains of dizziness, feeling like he blacks out, leading to fall. Patient reports no alcohol in the past week but previously drinking 2-3 vodka drinks daily.
-Of note recent echo 07/23/2024 shows decline in LV function to EF of 30 to 35% with concern for severe aortic stenosis. Also with new elevation in PA pressures. PAP 50 to 55 mmHg
-To consider right and left heart cath to further evaluate aortic stenosis and possible consideration for TAVR. It looks like this was considered during past admission 03/2023 but there was concern about patient having posterior circulation CVA
after cath prior to CABG in 2008. Patient had cath in 2014 without adverse event.
-ER BNP 4590, negative troponin, BUN/creatinine stable range 30/1.7., Hemoglobin 10.1.
-Continue usual outpatient heart failure meds including Jardiance, carvedilol
-gentle IV diuresis in setting of
Will get remote interrogation of ICD to make sure no arrhythmias in setting of dizziness, pt report of blacking out. Pt denies ICD shock
Daily weights, strict I's and O's
-Check orthostatic vital signs
-PT/OT
A-fib is rate controlled
Should be on Xarelto 15 mg daily (creat clearance 39 based on creat 1.9 08/06/24, wt 182) -appropriate dose. Changed med order.
-Hgb trended down overnight - monitor. No complaints of melana, no BM in 3 days.
Continue ASA, statin for history of CAD, no anginal symptoms, troponin negative.
Data Reviewed
-
EKG: Tracing Personally Visualized and interpreted
Medical Tests (Nuc Med, Echo etc): Report Reviewed by me
Labs: Labs Reviewed by me
[2024-08-06 08:55] LABS: Percent Saturation 19 % (20-50); Total Iron Binding Capacity 393 ug/dl (261-462)
--- NOTE | 2024-08-06 09:32 | W.PN.HOSP.TC ---
Today's Communication/Plan
-
see outlined plan below
Assessment / Plan
Assessment / Plan
Assessment:
Presentation with SOB, associated with acute CHF
Acute hypoxic respiratory insufficency on 2L, associated with acute CHF
Known severe
- s/p TTE 07/23 with concern for low flow/low gradient severe ; mild to moderate MR. Compared to prior study 04/01/2023 aortic valve gradients are lower than noted previously but visually aortic valve appears severely stenotic. Left ventricular
ejection fraction previously noted to be 45 to 50% and now visually 30 to 35%. Pulmonary artery pressure previously 34 mmHg now 50 to 55 mmHg.
- s/p IV Lasix in ER; start 40mg daily IV - requires intensive monitoring of I/Os, weights, lytes. holding oral Lasix
- GDMT: continue Coreg, Jardiance
- DCA cards consulted
acute anemia on chronic anemia
- heme test stools
- anemia workup for substrates, if normal, hemolysis panel
CKD stage 3b
- monitor Cr with diuresis
CAD s/p CABG
Hx of IA
HX of ICD 2022
HLD
- continue ASA/Statin/BB
Essential HTN
- continue BP meds
NIDDM
- hold Metformin. continue Jardiance.
- SSI
- A1c
parox Atrial Fibrillation
- continue Coreg/Xarelto
Hx Alcohol Abuse
Unstable Gait
- B12 normal, Folate pending, B1 pending
- MSAS protocol
- PT/OT
- continue MV. Thiamine.
Chronic T12 compression deformity with possible superimposed acute/subacute component
Partially healed minimally displaced fractures involving the posterior left 9th through 12th ribs
HX of COPD
- prn nebs
hx of CVA
- continue ASA/Statin
GERD
- continue PPI
DVT ppx: Xarelto
Code: DNR/DNI
Anticipated Discharge: > 48 hours
Subjective/Interval History
-
Date of Service: August 06, 2024
denies any SOB or chest pain
on 2L NC
Objective Data
-
Labs:
Laboratory Results
08/06/24
07:14
WBC 6.5
Hgb 9.2 L
Hct 29.0 L
Plt Count 194
Sodium 139
Potassium 3.6
Chloride 98
Carbon Dioxide 30
BUN 27 H
Creatinine 1.9 H
Glucose 128 H
Calcium 8.6
Vital Signs:
Vital Signs
Temp Pulse Resp BP Pulse Ox
98 F 60 14 114/56 98
08/06/24 08:30 08/06/24 08:17 08/06/24 03:00 08/06/24 08:17 08/06/24 08:30
I&O
08/05/24 08/06/24 08/07/24
06:59 06:59 06:59
Intake Total 480 / 480
Output Total 1350 / 1350
Balance -870 / -870
Physical Exam
-
General: No Apparent Distress
HEENT: Normocephalic and Atraumatic
Respiratory: Wheezes and Crackles
Cardiac: Regular Rhythm and S1/S2
GI: Soft and Nontender
Genito-urinary: No Costovertebral Tender
Musculoskeletal: No Edema
Neuro: AO x 3
Hematologic / Lymphatic: No Lymphadenopathy
Psych: Calm
Data Reviewed
-
Total Time Spent with Patient (in minutes): 51
Labs: Labs Reviewed by me
[2024-08-06 09:56] LABS: Ferritin 34.6 ng/ml (17.9-464.0)
[2024-08-06 10:28] LABS: Folate > 20.0 ng/ml (2.76-20); Vitamin B12 454 pg/ml (239-931)
--- NOTE | 2024-08-06 10:43 | PN.CDI ---
CDI
- -
CDI:
Physician Documentation Request
Admit Date: 08/05/24 21:39
Dear Doctor Brandy,
Please review the following and provide your response in the progress notes.
Clinical Indicators:
- 08/06 PN indicates paroxysmal atrial fibrillation
- Prior admission DC Summary 04/04/2023 indicates permanent atrial fibrillation
- ICD 2014 with generator change 2022
If possible, please provide further specificity regarding atrial fibrillation, such as:
Paroxysmal atrial fibrillation - terminates spontaneously or with intervention within 7 days of onset
Permanent atrial fibrillation - when a decision has been made to accept the presence of AF and there is no further attempt to restore or maintain sinus rhythm
Other - please specify
Use of terms such as suspected, likely, concern for, or probable (associated with a specific diagnosis that is being evaluated, monitored, or treated as if it exists) are acceptable and can be coded in the inpatient setting, when documented at the
time of discharge.
Thank you,
Masood Gutierrez RN
CDI Specialist
Please use your independent medical judgment in providing your response.
[2024-08-06] MEDS: MIRALAX 17 GRAMS PO (11:07)
[2024-08-06 12:09] LABS: Glucose - Point of Care 253 mg/dl (70-99)
[2024-08-06] MEDS: NOVOLOG FLEXPEN-LOW RESISTANCE 3 UNITS SC (12:26)
--- NOTE | 2024-08-06 12:37 | CM ---
CM met with pt at bedside to complete IA. He lives with his in a 2SH with 2 CARY
There is a full flight to second floor; pt has a stairglide.
Pt reports being independent with his ADLs; He has a SPC and WW at home for use as needed
Pt advised he uses a nebulizer occassionally.
Discussed SA resources and community supports for ETOH; pt declined further information, stating he had not had a drink in a week and is 'done with it'. TT to Dr. Nava to make him aware.
Plan: Discharge to home with no needs per patient.
PCP- ISMAEL/Neeraj
Rx- August Glasgow
[2024-08-06] MEDS: LASIX 20 MG IV (13:47)
--- NOTE | 2024-08-06 16:22 | W.CARD.DEVCH ---
Cardiac Device Check
-
Device: Implanted Cardioverter-Defibrillator
Chief Librarian Circulation Department: [employer]
The patient's device was interrogated with assistance of the device account retention representative followed by a complete physician review. The device had normal function. No abnormalities seen.
Device interrogated due to pt reports of falls/blacking out. No ventricular arrhythmias, no ICD shocks, pt 100% afib, 0% apaced, 50.4% Vpaced.
[2024-08-06 16:25] LABS: Glucose - Point of Care 235 mg/dl (70-99)
[2024-08-06] MEDS: NOVOLOG FLEXPEN-LOW RESISTANCE 2 UNITS SC (17:32)
[2024-08-06] MEDS: XARELTO 15 MG PO (17:33)
[2024-08-06] MEDS: CRESTOR 40 MG PO (17:33)
[2024-08-06] MEDS: NON-FORMULARY ITEM 1 UNIT RIGHT EYE ×4 (17:33→21:38)
[2024-08-06] MEDS: SENOKOT-S 1 TABLET PO (19:57)
[2024-08-06 21:12] LABS: Glucose - Point of Care 231 mg/dl (70-99)
[2024-08-07] VITALS (7 sets, daily range): BP systolic 104–122; BP diastolic 45–65; BMI 25.1
[2024-08-07] MEDS: THIAMINE INJECTION 255 MG IV ×3 (04:36→18:01)
[2024-08-07 05:44] LABS: Hematocrit 27.7 % (39.0-52.0); Hemoglobin 8.9 g/dL (13.0-18.0); Mean Corp Hgb Conc. 32.1 g/dL (33.0-37.0); Mean Corpuscular Hgb 32.5 pg (27.0-31.0); Mean Corpuscular Volume 101.1 fL (80.0-94.0); Mean Platelet Volume 10.9 fL (7.4-10.4); Platelet Count 172 10^3/uL (130-400); Red Blood Cell Count 2.74 10^6/uL (4.70-6.10); Red Cell Dist. Width 13.7 % (11.5-14.5); Reticulocyte Count 2.6 % (0.4-2.8); White Blood Cell Count 6.6 10^3/uL (4.8-10.8)
[2024-08-07 06:10] LABS: Blood Urea Nitrogen 26 mg/dl (9-20); Calcium 8.7 mg/dl (8.4-10.2); Carbon Dioxide 27 mmol/L (22-30); Chloride 100 mmol/L (98-107); Estimated Creatinine Clearance 38 ml/min; Glucose 136 mg/dl (70-99); LDH 150 U/L (120-246); Phosphorus 2.9 mg/dl (2.5-4.5); Sodium 138 mmol/L (135-145); eGFR 36.33
[2024-08-07 06:16] LABS: Potassium 3.5 mmol/L (3.5-5.1)
[2024-08-07 07:38] LABS: Glucose - Point of Care 193 mg/dl (70-99)
[2024-08-07] MEDS: KCL 20 MEQ PO (07:38)
[2024-08-07] MEDS: PROTONIX 40 MG PO (07:38)
[2024-08-07] MEDS: THERAGRAN 1 TABLET PO (07:38)
[2024-08-07] MEDS: ASPIR LOW (ENTERIC COATED) 81 MG PO (07:38)
[2024-08-07] MEDS: FOLVITE 1 MG PO (07:38)
[2024-08-07] MEDS: LASIX 20 MG IV (07:38)
[2024-08-07] MEDS: FARXIGA 10 MG PO (07:38)
[2024-08-07] MEDS: VITAMIN E 400 UNITS PO (07:38)
[2024-08-07] MEDS: COREG 3.125 MG PO ×2 (07:38→21:14)
[2024-08-07] MEDS: MIRALAX 17 GRAMS PO (07:38)
[2024-08-07] MEDS: CYMBALTA DELAYED RELEASE 60 MG PO (07:38)
[2024-08-07] MEDS: NON-FORMULARY ITEM 1 UNIT RIGHT EYE ×4 (07:39→12:39)
[2024-08-07] MEDS: NOVOLOG FLEXPEN-LOW RESISTANCE 1 UNITS SC ×2 (07:39→17:15)
[2024-08-07] MEDS: SENOKOT-S 1 TABLET PO ×2 (07:40→21:15)
--- NOTE | 2024-08-07 08:50 | W.PN.HOSP.TC ---
Today's Communication/Plan
-
continue IV Lasix
R/LHC Cath Friday
low dose basal/bolus regimen
Assessment / Plan
Assessment / Plan
Assessment:
Presentation with SOB, associated with acute CHF
Acute hypoxic respiratory insufficiency on 2L, associated with acute CHF
Known severe
- s/p TTE 07/23 with concern for low flow/low gradient severe ; mild to moderate MR. Compared to prior study 04/01/2023 aortic valve gradients are lower than noted previously but visually aortic valve appears severely stenotic. Left ventricular
ejection fraction previously noted to be 45 to 50% and now visually 30 to 35%. Pulmonary artery pressure previously 34 mmHg now 50 to 55 mmHg.
- continue IV Lasix 20mg daily - requires intensive monitoring of I/Os, weights, lytes. holding oral Lasix
- GDMT: continue Coreg, Jardiance
- DCA cards following
- for L/RHC cath Friday
acute anemia on chronic anemia
- heme test stools
- anemia indices, hemolysis panels negative
CKD stage 3b
- monitor Cr with diuresis
CAD s/p CABG
Hx of MA
HX of ICD 2022
HLD
- continue ASA/Statin/BB
Essential HTN
- continue BP meds
NIDDM
- hold Metformin. continue Jardiance.
- low dose basal/bolus regimen for uncontrolled sugars while off Metformin
- SSI
- A1c: 7.0%
permanent Atrial Fibrillation
- continue Coreg/Xarelto
Hx Alcohol Abuse
Unstable Gait
- B12 normal, Folate normal, B1 pending
- MSAS protocol
- PT/OT - SNF recommended
- continue MV. Thiamine.
Chronic T12 compression deformity with possible superimposed acute/subacute component
Partially healed minimally displaced fractures involving the posterior left 9th through 12th ribs
HX of COPD
- prn nebs
hx of CVA
- continue ASA/Statin
GERD
- continue PPI
DVT ppx: Xarelto
Code: DNR/DNI
Anticipated Discharge: > 48 hours
Subjective/Interval History
-
Date of Service: August 07, 2024
denies any new complaints at present
Objective Data
-
Labs:
Laboratory Results
08/07/24
04:54
WBC 6.6
Hgb 8.9 L
Hct 27.7 L
Plt Count 172
Sodium 138
Potassium 3.5
Chloride 100
Carbon Dioxide 27
BUN 26 H
Creatinine 1.9 H
Glucose 136 H
Calcium 8.7
Vital Signs:
Vital Signs
Temp Pulse Resp BP Pulse Ox
98.0 F 68 18 122/65 95
08/07/24 07:37 08/07/24 07:38 08/07/24 07:37 08/07/24 07:38 08/07/24 08:00
I&O
08/06/24 08/07/24 08/08/24
06:59 06:59 06:59
Intake Total 480 / 480 1695 / 1695
Output Total 1350 / 1350 1800 / 1800
Balance -870 / -870 -105 / -105
Physical Exam
-
General: No Apparent Distress
HEENT: Normocephalic and Atraumatic
Respiratory: Negative Wheezes
Cardiac: Regular Rhythm and S1/S2
GI: Soft and Nontender
Genito-urinary: No Costovertebral Tender
Neuro: AO x 3
Hematologic / Lymphatic: No Lymphadenopathy
Psych: Calm
Data Reviewed
-
Total Time Spent with Patient (in minutes): 42
Labs: Labs Reviewed by me
[2024-08-07 11:41] LABS: Glucose - Point of Care 294 mg/dl (70-99)
--- NOTE | 2024-08-07 12:28 | W.PN.UPDATE ---
Update Note
Progress Note Update
I spoke w/ pt and yest about proceeding with L/R heart cath to eval and worsened LV dysfxn on recent echo. Pt would like to proceed with cath during this admission. Discussed with Dr Moreno yesterday and pt on schedule for Friday08/09/24.
Made NPO after MN for Friday.
[2024-08-07] MEDS: NOVOLOG FLEXPEN-LOW RESISTANCE 3 UNITS SC (12:38)
--- NOTE | 2024-08-07 14:12 | W.PN.CARDCBS ---
Today's Communication / Plan
-
Maintain gentle diuresis and plan for right and left heart cath on Friday as part of TAVR assessment
Impression / Plan
-
Primary Care Provider: Dr. Glasgow
Primary Sr. Director Product Management: Dr. Moreno
Presented 08/05/2024 with severe shortness of breath and weakness with minimal exertion. Denies weight gain. Wt 180 lbs in cardiology office 07/06/2024. Overall outpatient wt down 24 lbs over past year (wt 204 lbs 05/2023). Reports 20 pound
weight loss in past 6 months. reports significant decline in past 2 to 3 weeks with worsening weakness and has been unable to support him with ambulation. Patient can only walk very short distance such as to bathroom without becoming weak and
having falls. He has had multiple falls in the last few weeks. Complains of dizziness, feeling like he blacks out, leading to fall. Patient reports no alcohol in the past week but previously drinking 2-3 vodka drinks daily.
Assessment:
Acute on chronic HFrEF, NYHA class 3-4
HFrEF
Moderate to severe with peak/mean gradients 38/21, WES 1.1 cm�. Visually aortic valve appears more stenotic, question of low-flow/low gradient severe , mild AI, echo 07/23/2024
CM w/ variable EF, most recent echo 07/23/2024 w/ decline in EF 30-35%
Fall at home, possibly syncope
COPD
CKD 3b
Hypomagnesemia
Permanent atrial fibrillation
Chronic Xarelto OAC, creat clearance 39 based on creat 1.9 08/06/2024.
s/p Medtronic ICD 2014 s/p generator change 12/25/22
CAD
s/p CABG with [facility] to LAD and SVG to L PLB in 2008
cath with balloon angioplasty at [facility] to LAD ostial region in 2014
Type 2 DM
HLD
HTN
BPH
GERD
Ongoing tobacco use
ETOH use disorder, likely moderate to severe
LBBB
ECHO 12/20/19: 25-30%, global hypokinesis with mid anteroseptal, mid anterior, apical akinesis, dyskinesis of inferior apex, MAC, mild to moderate , peak/mean gradients 37/18 mmHg, WES 1.0 cm�, mild TR, PAP 37 mmHg
Echo 06/09/20: EF 25-30%, mild MR, mod peak/mean 30/15 mmHg WES 1.3 cm sq, dilated RV with grossly normal function
Echo 10/25/22: EF 45%, apical and anteroseptal wall akinesis, trace MR, mod to sev with peak/mean 33/19 mmHg and WES 0.8 cm sq
Echo 07/23/2024: EF 35% (visually 30 to 35%, mid to distal anteroseptal and apical akinesis, normal RV size and function, calcified, restricted AV. Peak/mean AV gradients 38/21. WES 1.1 cm�. Visually AV appears more stenotic, question whether there
could be a low flow/low gradient severe . Mild AI I. Mild to moderate TR, PAP 50 to 55 mmHg, mild to moderate MR
Plan:
Acute decompensated heart failure with reduced ejection fraction
Careful diuresis for his acute decompensated heart failure with reduced ejection fraction in the setting of likely severe aortic stenosis
Lasix 20 mg IV daily and while weight is recorded is being up, fluid balance is recorded as being negative
Continue Lasix 20 mg IV daily for now and reassess on a daily basis also will get a better sense of volume at right and left heart cath on Friday
Continue usual outpatient heart failure meds including Jardiance 10 mg daily, carvedilol 3.125 mg twice daily
Concern for symptomatic severe aortic stenosis in the setting of significant LV dysfunction/low gradient
May benefit from TAVR are
Right and left heart cath to further evaluate aortic stenosis and possible consideration for TAVR.
Considered during past admission 03/2023 but there was concern about patient having posterior circulation CVA after cath prior to CABG in 2008. Patient had cath in 2014 without adverse event.
Fall at home, possible syncope. There was some concern for the possibility of arrhythmias.
ICD interrogated 08/06/2024 finding no sustained arrhythmias, 100% A-fib, 50% ventricular paced. .. No arrhythmic etiology to this event
Persistent atrial fibrillation
Rate is controlled by device diagnostics and by telemetry
Continue anticoagulation, Xarelto dose reduced to 15 mg daily due to reduced creatinine clearance.
Chronic kidney disease, creatinine 1.9 with estimated creatinine clearance of 38/estimated GFR 36
At recent baseline which is ranged from 1.5-1.9 since 2022
Continue ASA, statin for history of CAD, no anginal symptoms, troponin negative.
PT/OT
Progress Note - Sr. Director Product Management
Subjective
Date of Service: August 07, 2024
Denies chest pain shortness of breath palpitations or dizziness at rest in bed
Objective
Labs:
08/07/24 04:54
08/07/24 04:54
Labs
Hgb 8.9 g/dL (13.0-18.0) L 08/07/24 04:54
Hct 27.7 % (39.0-52.0) L 08/07/24 04:54
Plt Count 172 10^3/uL (130-400) 08/07/24 04:54
Sodium 138 mmol/L (135-145) 08/07/24 04:54
Potassium 3.5 mmol/L (3.5-5.1) 08/07/24 04:54
BUN 26 mg/dl (9-20) H 08/07/24 04:54
Creatinine 1.9 mg/dL (0.7-1.3) H 08/07/24 04:54
Glucose 136 mg/dl (70-99) H 08/07/24 04:54
Troponins
08/05/24
16:37
Troponin I 0.034
Vital Signs and I&O:
Vital Signs
Temp Pulse Resp BP Pulse Ox
97.7 F 66 18 112/58 96
08/07/24 11:32 08/07/24 11:32 08/07/24 11:32 08/07/24 11:32 08/07/24 11:32
Vital Signs
Temp Pulse Resp BP Pulse Ox
97.7 F 66 18 112/58 96
08/07/24 11:32 08/07/24 11:32 08/07/24 11:32 08/07/24 11:32 08/07/24 11:32
Intake & Output
08/05/24 08/06/24 08/07/24 08/08/24
06:59 06:59 06:59 06:59
Intake Total 480 / 480 1695 / 1695
Output Total 1350 / 1350 1800 / 1800
Balance -870 / -870 -105 / -105
Physical Exam
Physical Exam
Appears comfortable, lying flat in bed, no acute distress
Regular rate and rhythm with normal S1, delayed S2 there is a grade 2/6 basal systolic ejection murmur, no S3 no S4, no rubs
Lungs are clear to auscultation bilaterally without wheezes rales or rhonchi
Extremities show trace pretibial edema bilaterally
Neurologic exam is grossly nonfocal
Abdomen soft nontender nondistended with normoactive bowel sounds
[2024-08-07 16:54] LABS: Glucose - Point of Care 163 mg/dl (70-99)
[2024-08-07] MEDS: XARELTO 15 MG PO (17:15)
[2024-08-07] MEDS: ERYTHROMYCIN 0.5% OPHTHALMIC OINTMENT 1 APPLIC RIGHT EYE ×2 (17:15→21:16)
[2024-08-07] MEDS: CRESTOR 40 MG PO (17:15)
[2024-08-07] MEDS: PRED FORTE 1% EYE DROPS 1 DROP RIGHT EYE ×2 (17:15→21:16)
[2024-08-07] MEDS: NOVOLOG FLEXPEN 4 UNITS SC (17:16)
[2024-08-07] MEDS: DUONEB 3 ML INH (20:28)
[2024-08-07 21:36] LABS: Glucose - Point of Care 171 mg/dl (70-99)
[2024-08-07] MEDS: LANTUS 0.08 UNITS SC (22:50)
[2024-08-08] MEDS: ERYTHROMYCIN 0.5% OPHTHALMIC OINTMENT RIGHT EYE ×3 (00:34→23:51)
[2024-08-08] MEDS: THIAMINE INJECTION 255 MG IV ×3 (03:17→19:47)
[2024-08-08 03:39] VITALS: BP 112/66
[2024-08-08 06:00] VITALS: BMI 24.8
[2024-08-08 07:18] LABS: Glucose - Point of Care 149 mg/dl (70-99)
[2024-08-08 07:55] VITALS: BP 107/54
[2024-08-08 08:13] LABS: Hematocrit 26.1 % (39.0-52.0); Hemoglobin 8.4 g/dL (13.0-18.0); Mean Corp Hgb Conc. 32.2 g/dL (33.0-37.0); Mean Corpuscular Hgb 32.6 pg (27.0-31.0); Mean Corpuscular Volume 101.2 fL (80.0-94.0); Mean Platelet Volume 11.1 fL (7.4-10.4); Platelet Count 175 10^3/uL (130-400); Red Blood Cell Count 2.58 10^6/uL (4.70-6.10); White Blood Cell Count 6.1 10^3/uL (4.8-10.8)
[2024-08-08 08:45] LABS: Blood Urea Nitrogen 26 mg/dl (9-20); Calcium 9.2 mg/dl (8.4-10.2); Carbon Dioxide 25 mmol/L (22-30); Chloride 100 mmol/L (98-107); Estimated Creatinine Clearance 34 ml/min; Glucose 150 mg/dl (70-99); Sodium 135 mmol/L (135-145); eGFR 32.22
[2024-08-08] MEDS: NOVOLOG FLEXPEN-LOW RESISTANCE SC (09:12)
[2024-08-08] MEDS: FARXIGA 10 MG PO (09:13)
[2024-08-08] MEDS: CYMBALTA DELAYED RELEASE 60 MG PO (09:13)
[2024-08-08] MEDS: PROTONIX 40 MG PO (09:13)
[2024-08-08] MEDS: VITAMIN E 400 UNITS PO (09:13)
[2024-08-08] MEDS: FOLVITE 1 MG PO (09:13)
[2024-08-08] MEDS: ASPIR LOW (ENTERIC COATED) 81 MG PO (09:14)
[2024-08-08] MEDS: KCL 20 MEQ PO (09:14)
[2024-08-08] MEDS: THERAGRAN 1 TABLET PO (09:15)
[2024-08-08] MEDS: COREG 3.125 MG PO ×2 (09:15→19:47)
[2024-08-08] MEDS: MIRALAX PO (09:16)
[2024-08-08] MEDS: PRED FORTE 1% EYE DROPS 1 DROP RIGHT EYE ×4 (09:17→21:40)
[2024-08-08] MEDS: ERYTHROMYCIN 0.5% OPHTHALMIC OINTMENT 1 APPLIC RIGHT EYE ×4 (09:18→19:48)
[2024-08-08] MEDS: NOVOLOG FLEXPEN 4 UNITS SC ×3 (09:19→18:30)
[2024-08-08] MEDS: LASIX IV (09:22)
[2024-08-08] MEDS: SENOKOT-S PO ×2 (09:22→19:48)
--- NOTE | 2024-08-08 11:08 | W.PN.UPDATE ---
Update Note
Progress Note Update
Patient with known chronic kidney disease and has been planned for right and left heart cath for tomorrow.
Creatinine is up just slightly and this may be related to some overdiuresis. Will stop Lasix today. Overall renal function however is not that different than his baseline this adm based on GFR
--- NOTE | 2024-08-08 11:10 | W.PN.UPDATE ---
Update Note
Progress Note Update
Given that he is going for catheterization tomorrow and he is likely been slightly over diuresed. Will give him a small fluid bolus today of 250 cc and repeat chemistry in the morning
--- NOTE | 2024-08-08 11:24 | W.PN.HOSP.TC ---
Today's Communication/Plan
-
NPO p MN for R/LHC cath
hold IV Lasix with Cr bump
Assessment / Plan
Assessment / Plan
Assessment:
Presentation with SOB, associated with acute CHF
Acute hypoxic respiratory insufficiency on 2L, associated with acute CHF
Known severe
- s/p TTE 07/23 with concern for low flow/low gradient severe ; mild to moderate MR. Compared to prior study 04/01/2023 aortic valve gradients are lower than noted previously but visually aortic valve appears severely stenotic. Left ventricular
ejection fraction previously noted to be 45 to 50% and now visually 30 to 35%. Pulmonary artery pressure previously 34 mmHg now 50 to 55 mmHg.
- hold IV Lasix with Cr bump
- GDMT: continue Coreg, Jardiance
- DCA cards following
- for L/RHC cath Friday
acute anemia on chronic anemia
- heme test stools (large brown BM 08/08 but not tested by overnight nursing)
- anemia indices normal, hemolysis panels negative
CKD stage 3b
- monitor Cr with diuresis
CAD s/p CABG
Hx of SC
HX of ICD 2022
HLD
- continue ASA/Statin/BB
Essential HTN
- continue BP meds
NIDDM
- hold Metformin. continue Jardiance.
- continue low dose basal/bolus regimen for uncontrolled sugars while off Metformin
- SSI
- A1c: 7.0%
permanent Atrial Fibrillation
- continue Coreg/Xarelto
Hx Alcohol Abuse
Unstable Gait
- B12 normal, Folate normal, B1 pending
- MSAS protocol
- PT/OT - SNF recommended
- continue MV. Thiamine.
Chronic T12 compression deformity with possible superimposed acute/subacute component
Partially healed minimally displaced fractures involving the posterior left 9th through 12th ribs
HX of COPD
- prn nebs
hx of CVA
- continue ASA/Statin
GERD
- continue PPI
DVT ppx: Xarelto
Code: DNR/DNI
Anticipated Discharge: > 48 hours
Subjective/Interval History
-
Date of Service: August 08, 2024
no new complaints
large BM (listed as brown) overnight - was not heme tested
Objective Data
-
Labs:
Laboratory Results
08/08/24
06:05
WBC 6.1
Hgb 8.4 L
Hct 26.1 L
Plt Count 175
Sodium 135
Potassium 4.0
Chloride 100
Carbon Dioxide 25
BUN 26 H
Creatinine 2.1 H
Glucose 150 H
Calcium 9.2
Vital Signs:
Vital Signs
Temp Pulse Resp BP Pulse Ox
98.2 F 107 16 107/54 97
08/08/24 07:55 08/08/24 09:15 08/08/24 07:55 08/08/24 09:15 08/08/24 07:55
I&O
08/07/24 08/08/24 08/09/24
06:59 06:59 06:59
Intake Total 1695 / 1695 975 / 975
Output Total 1800 / 1800 1610 / 1610
Balance -105 / -105 -635 / -635
Physical Exam
-
General: No Apparent Distress
HEENT: Normocephalic and Atraumatic
Respiratory: Negative Wheezes
Cardiac: Regular Rhythm and S1/S2
GI: Soft
Genito-urinary: No Costovertebral Tender
Neuro: AO x 3
Psych: Calm
Data Reviewed
-
Total Time Spent with Patient (in minutes): 42
Labs: Labs Reviewed by me
--- NOTE | 2024-08-08 11:40 | W.PN.UPDATE ---
Update Note
Progress Note Update
Xarelto on hold as of 08/08/2024 pending heart catheterization tomorrow. After catheterization there will need to be consideration to resume anticoagulation
[2024-08-08 11:55] VITALS: BP 116/60
[2024-08-08 13:02] LABS: Glucose - Point of Care 154 mg/dl (70-99)
[2024-08-08] MEDS: NOVOLOG FLEXPEN-LOW RESISTANCE 1 UNITS SC ×2 (13:33→18:31)
[2024-08-08] MEDS: NSS 250 IV (15:10)
[2024-08-08 15:55] VITALS: BP 116/66
[2024-08-08 17:28] LABS: Glucose - Point of Care 170 mg/dl (70-99)
[2024-08-08] MEDS: CRESTOR 40 MG PO (18:29)
[2024-08-08 19:05] VITALS: BP 126/61
[2024-08-08 21:27] LABS: Glucose - Point of Care 190 mg/dl (70-99)
[2024-08-08] MEDS: LANTUS 0.08 UNITS SC (21:40)
[2024-08-08 23:17] VITALS: BP 100/50
[2024-08-09] VITALS (7 sets, daily range): BP systolic 114–136; BP diastolic 44–64; PULSE 87; O2SAT 100; BMI 24.8
--- NOTE | 2024-08-09 01:15 | PTCARENOTE ---
Addendum entered by Hayley Pate RN 08/09/24 03:32:
Pt placed on 2L O2 NC, states he could not feel the air on 1L.
Original Note:
Pt stated he was having trouble breathing, requested a Neb treatment. Pt placed on 1L O2 for comfort.
[2024-08-09] MEDS: DUONEB 3 ML INH ×2 (01:24→12:51)
[2024-08-09] MEDS: ERYTHROMYCIN 0.5% OPHTHALMIC OINTMENT 1 APPLIC RIGHT EYE ×5 (03:22→20:15)
[2024-08-09] MEDS: THIAMINE INJECTION 255 MG IV ×2 (03:22→12:28)
[2024-08-09 06:00] LABS: Glucose - Point of Care 160 mg/dl (70-99)
[2024-08-09] MEDS: NOVOLOG FLEXPEN SC (07:26)
[2024-08-09 08:06] LABS: Haptoglobin 243 mg/dL (30-200)
[2024-08-09 08:13] LABS: Hematocrit 26.8 % (39.0-52.0); Hemoglobin 8.6 g/dL (13.0-18.0); Mean Corp Hgb Conc. 32.1 g/dL (33.0-37.0); Mean Corpuscular Hgb 33.2 pg (27.0-31.0); Mean Corpuscular Volume 103.5 fL (80.0-94.0); Mean Platelet Volume 10.9 fL (7.4-10.4); Platelet Count 159 10^3/uL (130-400); Red Blood Cell Count 2.59 10^6/uL (4.70-6.10); Red Cell Dist. Width 14.4 % (11.5-14.5); White Blood Cell Count 5.4 10^3/uL (4.8-10.8)
[2024-08-09] MEDS: COREG 3.125 MG PO ×2 (08:25→20:14)
[2024-08-09] MEDS: VITAMIN E 400 UNITS PO (08:25)
[2024-08-09] MEDS: KCL 20 MEQ PO (08:25)
[2024-08-09] MEDS: FOLVITE 1 MG PO (08:25)
[2024-08-09] MEDS: THERAGRAN 1 TABLET PO (08:25)
[2024-08-09] MEDS: PROTONIX 40 MG PO (08:26)
[2024-08-09] MEDS: CYMBALTA DELAYED RELEASE 60 MG PO (08:26)
[2024-08-09] MEDS: PRED FORTE 1% EYE DROPS 1 DROP RIGHT EYE ×4 (08:26→21:17)
[2024-08-09] MEDS: ASPIR LOW (ENTERIC COATED) 81 MG PO (08:26)
[2024-08-09] MEDS: FARXIGA 10 MG PO (08:26)
[2024-08-09] MEDS: SENOKOT-S PO ×2 (08:28→20:14)
[2024-08-09 08:34] LABS: Blood Urea Nitrogen 26 mg/dl (9-20); Calcium 9.1 mg/dl (8.4-10.2); Carbon Dioxide 25 mmol/L (22-30); Chloride 103 mmol/L (98-107); Estimated Creatinine Clearance 34 ml/min; Glucose 119 mg/dl (70-99); Potassium 4.3 mmol/L (3.5-5.1); Sodium 138 mmol/L (135-145); eGFR 32.22
[2024-08-09] MEDS: MIRALAX PO (08:39)
[2024-08-09] MEDS: NOVOLOG FLEXPEN-LOW RESISTANCE SC (08:39)
--- NOTE | 2024-08-09 11:22 | W.PN.CARDCBS ---
Addendum entered and electronically signed by Jamar Moreno MD 08/09/24 16:23:
Attending addendum: Patient seen and examined. I spoke with Nephrology earlier today. Will proceed with right and left heart catheterization tomorrow. Discussed low but not zero risk for contrast associated nephropathy and renal failure.
However, at this point we need to get information. He and are in agreement.
Original Note:
Today's Communication / Plan
-
Postpone cardiac catheterization given renal function
Nephrology consult
Continue to hold nephrotoxic agents including Lasix
Eventual right/left heart catheterization
Impression / Plan
-
Primary Care Provider: Dr. Glasgow
Primary Restaurant Mgr: Dr. Moreno
Presented 08/05/2024 with severe shortness of breath and weakness with minimal exertion. Denies weight gain. Wt 180 lbs in cardiology office 07/06/2024. Overall outpatient wt down 24 lbs over past year (wt 204 lbs 05/2023). Reports 20 pound
weight loss in past 6 months. reports significant decline in past 2 to 3 weeks with worsening weakness and has been unable to support him with ambulation. Patient can only walk very short distance such as to bathroom without becoming weak and
having falls. He has had multiple falls in the last few weeks. Complains of dizziness, feeling like he blacks out, leading to fall. Patient reports no alcohol in the past week but previously drinking 2-3 vodka drinks daily.
Assessment:
Acute on chronic HFrEF, NYHA class 3-4
HFrEF
Moderate to severe with peak/mean gradients 38/21, WES 1.1 cm�. Visually aortic valve appears more stenotic, question of low-flow/low gradient severe , mild AI, echo 07/23/2024
CM w/ variable EF, most recent echo 07/23/2024 w/ decline in EF 30-35%
CHINEDU on CKD
Fall at home, possibly syncope
COPD
CKD 3b
Hypomagnesemia
Permanent atrial fibrillation
Chronic Xarelto OAC, creat clearance 39 based on creat 1.9 08/06/2024.
s/p Medtronic ICD 2014 s/p generator change 12/25/22
CAD
s/p CABG with [facility] to LAD and SVG to L PLB in 2008
cath with balloon angioplasty at [facility] to LAD ostial region in 2014
Type 2 DM
HLD
HTN
BPH
GERD
Ongoing tobacco use
ETOH use disorder, likely moderate to severe
LBBB
ECHO 12/20/19: 25-30%, global hypokinesis with mid anteroseptal, mid anterior, apical akinesis, dyskinesis of inferior apex, MAC, mild to moderate , peak/mean gradients 37/18 mmHg, WES 1.0 cm�, mild TR, PAP 37 mmHg
Echo 06/09/20: EF 25-30%, mild MR, mod peak/mean 30/15 mmHg WES 1.3 cm sq, dilated RV with grossly normal function
Echo 10/25/22: EF 45%, apical and anteroseptal wall akinesis, trace MR, mod to sev with peak/mean 33/19 mmHg and WES 0.8 cm sq
Echo 07/23/2024: EF 35% (visually 30 to 35%, mid to distal anteroseptal and apical akinesis, normal RV size and function, calcified, restricted AV. Peak/mean AV gradients 38/21. WES 1.1 cm�. Visually AV appears more stenotic, question whether there
could be a low flow/low gradient severe . Mild AI I. Mild to moderate TR, PAP 50 to 55 mmHg, mild to moderate MR
Plan:
Acute decompensated heart failure with reduced ejection fraction
Careful diuresis for his acute decompensated heart failure with reduced ejection fraction in the setting of likely severe aortic stenosis
Was getting diuresed with Lasix 20 mg IV daily and while weight is recorded is being up, fluid balance is recorded as being negative
Last dose of Lasix was 08/06 creat now 2.1 continue to monitor daily basis. Hold on RHC/LHC 08/09 due to creat of 2.1
Eventually will need right and left heart cath
Continue usual outpatient heart failure meds including Jardiance 10 mg daily, carvedilol 3.125 mg twice daily
Patient currently requiring 2 L of oxygen via nasal cannula, wean as tolerated
Concern for symptomatic severe aortic stenosis in the setting of significant LV dysfunction/low gradient
May benefit from TAVR
Eventual Right and left heart cath to further evaluate aortic stenosis and possible consideration for TAVR.
Considered during past admission 03/2023 but there was concern about patient having posterior circulation CVA after cath prior to CABG in 2008. Patient had cath in 2014 without adverse event.
Fall at home, possible syncope. There was some concern for the possibility of arrhythmias.
ICD interrogated 08/06/2024 finding no sustained arrhythmias, 100% A-fib, 50% ventricular paced. .. No arrhythmic etiology to this event
Persistent atrial fibrillation
Rate is controlled by device diagnostics and by telemetry
Continue anticoagulation, Xarelto dose reduced to 15 mg daily due to reduced creatinine clearance. ( Held Xarelto 08/08 in anticipation of cath)
Chronic kidney disease, creatinine 2.1
At recent baseline which is ranged from 1.5-1.9 since 2022
Patient got 60 mg of IV Lasix on 08/05 and 08/06/2024 but none since. Did get gentle fluid bolus of 250 cc on 08/08/2023 and creatinine remains elevated at 2.1. Possible concern for cardiorenal syndrome. Patient follows with outpatient nephrology.
They have been consulted to help weigh in on situation and help provide guidance for eventual cardiac catheterization
Continue ASA, statin for history of CAD, no anginal symptoms, troponin negative.
PT/OT
Plan discussed with nursing, hospitalist, nephrology and cardiology. Patient's at bedside and also discussed plan with her
Progress Note - Restaurant Mgr
Subjective
Date of Service: August 09, 2024
Patient seen and examined. Patient lying in at bedside. Reports he had a bad night and was unable to sleep and felt short of breath in middle of night. Seem to improve with placement of oxygen
Objective
Labs:
08/09/24 07:30
08/09/24 07:30
Labs
Hgb 8.6 g/dL (13.0-18.0) L 08/09/24 07:30
Hct 26.8 % (39.0-52.0) L 08/09/24 07:30
Plt Count 159 10^3/uL (130-400) 08/09/24 07:30
Sodium 138 mmol/L (135-145) 08/09/24 07:30
Potassium 4.3 mmol/L (3.5-5.1) 08/09/24 07:30
BUN 26 mg/dl (9-20) H 08/09/24 07:30
Creatinine 2.1 mg/dL (0.7-1.3) H 08/09/24 07:30
Glucose 119 mg/dl (70-99) H 08/09/24 07:30
Vital Signs and I&O:
Vital Signs
Temp Pulse Resp BP Pulse Ox
97.7 F 77 18 122/53 98
08/09/24 11:20 08/09/24 11:20 08/09/24 11:20 08/09/24 11:20 08/09/24 11:20
Vital Signs
Temp Pulse Resp BP Pulse Ox
97.7 F 77 18 122/53 98
08/09/24 11:20 08/09/24 11:20 08/09/24 11:20 08/09/24 11:20 08/09/24 11:20
Intake & Output
08/07/24 08/08/24 08/09/24 08/10/24
06:59 06:59 06:59 06:59
Intake Total 1695 / 1695 975 / 975 1460 / 1460
Output Total 1800 / 1800 1610 / 1610 680 / 680
Balance -105 / -105 -635 / -635 780 / 780
Physical Exam
Physical Exam
GEN: No distress, awake, Ox3 lying in bed
HEENT: supple, anicteric, mmm
LUNGS: Few scattered expiratory wheezes otherwise CTA; wearing oxygen at 2 L/min
CV: Reg, S1/S2, grade 2/6 basal systolic ejection murmur, no rub or gallop
ABD: soft, BS+, NT/ND
EXT: NO edema, clubbing or cyanosis
NEURO: Gross non-focal
SKIN: No rash
[2024-08-09 11:45] LABS: Glucose - Point of Care 160 mg/dl (70-99)
[2024-08-09] MEDS: NOVOLOG FLEXPEN-LOW RESISTANCE 1 UNITS SC ×2 (12:26→17:31)
[2024-08-09] MEDS: NOVOLOG FLEXPEN 4 UNITS SC ×2 (12:27→17:31)
--- NOTE | 2024-08-09 12:51 | W.CON.NEPH ---
Consultation
-
Date/Time Consultation Requested: August 09, 2024 12 PM
Date/Time Consultation Performed: August 09, 2024 1 PM
Requesting Provider: Dr. Moreno
Performing Provider: Dr. Carrillo
Reason for Consultation: CHINEDU
Medical History
-
Chief Complaint: Shortness of breath
History of Present Illness:
This is a 74-year-old gentleman who has been following with Dr. Broderick with chronic kidney disease stage IIIb, baseline creatinine approximately 1.6. He has what is believed to be diabetic nephropathy with some proteinuria and longstanding
diabetes. He had previously been on ISAAC inhibitor therapy with lisinopril though this had somehow dropped off over a year ago. This does not appear to have been anything other than the patient discontinue the medication by himself. He has heart
failure with reduced ejection fraction 30% treated with diuretic therapy as well as Jardiance. He has had several admissions for decompensated heart failure. He presents this time also with worsening shortness of breath and weakness. He is also
had significant weight gain of 20 pounds in 6 months.
He is noted to have severe aortic stenosis and the possibility of TAVR was explored. This would require catheterization with contrast exposure. He did receive Lasix at the time of admission and his creatinine has slowly increased now at 2.1 he
remains on high oxygen requirements.
Past Medical History
benign hypertension
CAD
CHF
COPD
CVA
GERD
hyperlipidemia
NIDDM
Hx SD
CABG x2
ICD implantation (2014)
cysto/left ureteroscopy/laser litho and stent (03/2020)
angioplasty (2014)
AICD (2022)
CKD 3B
Social History
Tobacco: Smoker
Alcohol: Daily
Family History
Family History: Not Pertinent
Allergies / Home Medications
Allergy/AdvReac Type Severity Reaction Status Date / Time
No Known Allergies Allergy Verified 08/05/24 16:17
�Medication �Instructions �Recorded �Confirmed �Type
pantoprazole 40 mg tablet,delayed 40 mg PO DAILY Gastrointestinal 09/28/13 08/05/24 History
release issue
rosuvastatin 40 mg tablet (Crestor) 40 mg PO QPM High cholesterol 12/19/19 08/05/24 History
carvedilol 3.125 mg tablet 3.125 mg PO BID Blood pressure 03/30/20 08/05/24 History
multivitamin with folic acid 400 1 tab PO DAILY Supplement 03/30/20 08/05/24 History
mcg tablet (Tab-A-Elli)
aspirin 81 mg tablet,delayed 81 mg PO DAILY Blood clot 06/09/20 08/05/24 History
release prevention/tx
coenzyme Q10 100 mg capsule (Co 100 mg PO DAILY Supplement 06/09/20 08/05/24 History
Q-10)
metformin 1,000 mg tablet 1,000 mg PO DAILY Diabetes #30 tabs 06/13/20 08/05/24 Rx
rivaroxaban 20 mg tablet (Xarelto) 20 mg PO QPM 06/13/20 08/05/24 Rx
empagliflozin 10 mg tablet 10 mg PO DAILY Diabetes 12/04/22 08/05/24 History
(Jardiance)
potassium chloride 20 mEq 20 meq PO DAILY Supplement 12/04/22 08/05/24 History
tablet,extended
release(part/cryst) (Klor-Con M)
vitamin E 400 unit tablet 400 unit PO DAILY Supplement 12/04/22 08/05/24 History
folic acid 1 mg tablet 1 mg PO DAILY #30 tabs 04/04/23 08/05/24 Rx
furosemide 40 mg tablet 40 mg PO DAILY Fluid 04/04/23 08/05/24 Rx
Retention/Swelling #30 tabs
duloxetine 60 mg capsule,delayed 60 mg PO DAILY Depression 08/05/24 08/05/24 History
release (Cymbalta)
erythromycin 5 mg/gram (0.5 %) eye RIGHT EYE Q1H 08/06/24 History
ointment
prednisolone acetate 1 % eye 1 drp RIGHT EYE QID 08/06/24 08/06/24 History
drops,suspension
Review of Systems
-
Severe shortness of breath. No chest pain.
All other systems: Negative unless noted
Physical Exam
Vital Signs
Vital Signs
Temp Pulse Resp BP Pulse Ox
97.7 F 77 18 122/53 98
08/09/24 11:20 08/09/24 11:20 08/09/24 11:20 08/09/24 11:20 08/09/24 11:20
Lab Results
WBC 5.4 10^3/uL (4.8-10.8) 08/09/24 07:30
RBC 2.59 10^6/uL (4.70-6.10) L 08/09/24 07:30
Hgb 8.6 g/dL (13.0-18.0) L 08/09/24 07:30
Hct 26.8 % (39.0-52.0) L 08/09/24 07:30
Plt Count 159 10^3/uL (130-400) 08/09/24 07:30
Sodium 138 mmol/L (135-145) 08/09/24 07:30
Potassium 4.3 mmol/L (3.5-5.1) 08/09/24 07:30
Chloride 103 mmol/L (98-107) 08/09/24 07:30
Carbon Dioxide 25 mmol/L (22-30) 08/09/24 07:30
BUN 26 mg/dl (9-20) H 08/09/24 07:30
Creatinine 2.1 mg/dL (0.7-1.3) H 08/09/24 07:30
eGFR 32.22 08/09/24 07:30
Glucose 119 mg/dl (70-99) H 08/09/24 07:30
Calcium 9.1 mg/dl (8.4-10.2) 08/09/24 07:30
Phosphorus 2.9 mg/dl (2.5-4.5) 08/07/24 04:54
Obj-B-Gqqyspljyuj Pept 4590 pg/ml 08/05/24 16:37
Albumin 3.9 g/dl (3.5-5.0) 08/05/24 17:04
Physical Exam
Patient is awake alert oriented and in no distress. Mood and affect were pleasant, insight and judgment were good. Pupils are equal round and reactive to light, extraocular movements are intact, sclera were anicteric. Hearing was normal, ears and
nose are intact. Oropharynx was clear. Neck was supple with trachea midline and no thyromegaly. Heart was regular rate and rhythm without rubs. Lower extremities with 2+ edema. Lungs were with rales to auscultation bilaterally and with normal
excursion. Abdomen was soft, nontender, with normal active bowel sounds, and no hepatosplenomegaly. Skin was without rash and with normal turgor.
Data Reviewed
-
Radiology: Image Personally Visualized and interpreted (Chest x-ray on August 06, 2024 by my read shows no acute disease)
Medical Tests (Nuc Med, Echo etc): Image Personally Visualized and interpreted (EKG on 08/05/2024 by me shows atrial fibrillation paced rhythm) and Report Reviewed by me (Echocardiogram July 23, 2024, ejection fraction 30%, aortic valve area 1.1,
moderate TR, moderate MR)
Labs: Labs Reviewed by me
Old Records: Reviewed
Assessment/Plan
-
Assessment
CHINEDU
CKD3b
Heart failure reduced ejection fraction decompensated
Severe aortic stenosis
Moderate MR/TR
Smoking, alcohol use
Coronary artery disease with bypass
diabetes mellitus type 2
A-fib pacer
Hypertension
Plan
I discussed with the patient and his at great length. We discussed cardiorenal syndrome as well as what would be expected if he only treated the heart failure episodes with diuresis going forward. This would likely result in progressive renal
decline.
We then discussed his risk with TAVR are as well as cardiac catheterization. There is certainly the risk of contrast nephropathy though low. He would need to be willing to accept the risk of dialysis in order to continue with the workup and
evaluation and ultimate TAVR. He currently accepts the risk at this point. I suspect that this may in hindsight in the future have been the best time to have performed the catheterization. I suspect that his creatinine will only worsen without
being able to return to baseline over time. In short he is at risk of CHINEDU no matter what the situation and not pursuing more aggressive intervention would ensure significant morbidity and mortality as a default.
I will order very light bicarbonate and IV fluids for the catheterization. No bolus.
Holding Lasix for the time being though it may be given baseline oxygenation status.
--- NOTE | 2024-08-09 14:39 | W.PN.HOSP.TC ---
Today's Communication/Plan
-
nephrology input
lasix per nephro recommendation
f/u renal function/weight
Assessment / Plan
Assessment / Plan
Assessment:
Presentation with SOB, associated with acute CHF
Acute hypoxic respiratory insufficiency on 2L, associated with acute CHF
Known severe
- s/p TTE 07/23 with concern for low flow/low gradient severe ; mild to moderate MR. Compared to prior study 04/01/2023 aortic valve gradients are lower than noted previously but visually aortic valve appears severely stenotic. Left ventricular
ejection fraction previously noted to be 45 to 50% and now visually 30 to 35%. Pulmonary artery pressure previously 34 mmHg now 50 to 55 mmHg.
- GDMT: continue Coreg, Jardiance
- DCA cards following
-Cardiology initially plan to do left/right heart catheterization although with creatinine elevation nephro input has been requested. Patient at risk of COLETTE. Unfortunately without heart catheterization patient at risk of further deterioration of
cardiac issues. Difficult situation.
acute anemia on chronic anemia
- hbg stable around 8-9 range, continue monitor for bleeding issues.
- anemia indices normal, hemolysis panels negative
CKD stage 3b
- monitor Cr with diuresis
CAD s/p CABG
Hx of [place]
HX of ICD 2022
HLD
- continue ASA/Statin/BB
Essential HTN
- continue BP meds
NIDDM
- hold Metformin. continue Jardiance.
- continue low dose basal/bolus regimen for uncontrolled sugars while off Metformin
- SSI
- A1c: 7.0%
permanent Atrial Fibrillation
- continue Coreg/Xarelto
Hx Alcohol Abuse
Unstable Gait
- B12 normal, Folate normal, B1 pending
- MSAS protocol
- PT/OT - SNF recommended
- continue MV. Thiamine.
Chronic T12 compression deformity with possible superimposed acute/subacute component
Partially healed minimally displaced fractures involving the posterior left 9th through 12th ribs
HX of COPD
- prn nebs
hx of CVA
- continue ASA/Statin
GERD
- continue PPI
DVT ppx: Xarelto
Code: DNR/DNI
Care plan discussed with patient spouse at bedside
Discussed with nephrology/cardiology
Total time spent : 52 mins
I personally saw and examined the patient.
I have reviewed all diagnostic interpretations and treatment plans as written.
Time includes patient management by me, time spent at the patients bedside, time to review lab and imaging results, discussing patient care, documentation in the medical record, and time spent with the family or caregiver and discussing care plan
with RN/Consultants.
Anticipated Discharge: > 48 hours
Subjective/Interval History
-
Date of Service: August 09, 2024
Patient fatigued/tired
have minimal energy
Feeling dyspneic. Remains on 2 L oxygen through nasal cannula
Denies chest discomfort/palpitation
Objective Data
-
Labs:
Laboratory Results
08/09/24
07:30
WBC 5.4
Hgb 8.6 L
Hct 26.8 L
Plt Count 159
Sodium 138
Potassium 4.3
Chloride 103
Carbon Dioxide 25
BUN 26 H
Creatinine 2.1 H
Glucose 119 H
Calcium 9.1
Vital Signs:
Vital Signs
Temp Pulse Resp BP Pulse Ox
97.7 F 77 18 122/53 98
08/09/24 11:20 08/09/24 11:20 08/09/24 11:20 08/09/24 11:20 08/09/24 11:20
I&O
08/08/24 08/09/24 08/10/24
06:59 06:59 06:59
Intake Total 975 / 975 1460 / 1460
Output Total 1610 / 1610 680 / 680
Balance -635 / -635 780 / 780
Review of Systems
-
Respiratory: Reports Trouble Breathing and Wheezing; Denies Cough
Cardiac: Reports No Symptoms
Abdomen/GI: Reports No Symptoms
Physical Exam
-
General: No Apparent Distress
HEENT: Normocephalic and Atraumatic
Respiratory: Clear to Auscultation; Negative Wheezes
Cardiac: Regular Rhythm and S1/S2; Negative Murmur
GI: Soft, Nontender and Nondistended
Genito-urinary: No Costovertebral Tender
Neuro: AO x 3
Psych: Calm
--- NOTE | 2024-08-09 15:00 | WOUNDNOTE ---
R 5TH TOE (LATERAL)
--- NOTE | 2024-08-09 15:00 | WOUNDNOTE ---
R 5TH TOE (LATERAL)
--- NOTE | 2024-08-09 15:52 | WOUNDNOTE ---
[facility] RN note: Patient seen around 1500. Patient admitted with heart failure, falls, 20lb weight loss. Patient lives with his . He is for a cardiac cath tomorrow as per .
See H&P for complete history.
PMH: CKD3b, HTN, CHF, COPD, CVA, NIDDM, neuropathy, GA, CABG (Xarelto), ICD, L ureteroscopy with stent 2020, patient drinks Vodka and is a smoker.
Wound Location and type/assessment: Patient admitted with: R lateral 5th toe dry brown/black scab vs thin eschar. No drainage. No erythema. No edema. Pedal pulses heard via portable Doppler (L>R). Last arterial Doppler 2016 R TARIK .64, L TARIK .98.
Appetite: poor.
Pressure redistribution devices in place: [employer] air bed. He can turn self in bed.
Plan: No sting barrier wipe applied to R 5th toe dry scab. Instructed patient and , patient should see a home fire alarm installer for toenail and foot care, evaluate his shoes. He mostly wears slipper socks lately as per . Instructed patient heel
elevation with pillow to prevent a heel pressure injury and pressure injury prevention measures in general. Heels off bed with pillow. Air chair cushion given.
Comptche texted Dr. Soto re: R 5th toe dry scab vs thin eschar, suspect patient may have PAD, defer to hospitalist if LE arterial Doppler indicated. Discussed with TRENTON Rojas.
Care plan to be updated, will sign off. Call if needed.
[2024-08-09 15:53] LABS: Vitamin B1, Whole Blood 140 nmol/L (70-180)
[2024-08-09 16:43] LABS: Glucose - Point of Care 179 mg/dl (70-99)
--- NOTE | 2024-08-09 17:13 | CM ---
Spoke with at bedside.Pt for heart cath tomorrow.
believes pt may SNF at dc.
PAC data given .
Will assess PT T eval post acth .
PLAN Possible SNF at dc
[2024-08-09] MEDS: CRESTOR 40 MG PO (17:33)
[2024-08-09] MEDS: VITAMIN B1 100 MG PO (20:14)
[2024-08-09 21:11] LABS: Glucose - Point of Care 166 mg/dl (70-99)
[2024-08-09] MEDS: LANTUS 0.08 UNITS SC (21:17)
[2024-08-10] MEDS: ERYTHROMYCIN 0.5% OPHTHALMIC OINTMENT RIGHT EYE ×2 (01:01→03:55)
[2024-08-10] MEDS: DUONEB 3 ML INH ×4 (01:19→19:55)
[2024-08-10 03:24] VITALS: BP 120/53
[2024-08-10 06:00] VITALS: BMI 24.9
[2024-08-10 06:05] LABS: Glucose - Point of Care 111 mg/dl (70-99)
[2024-08-10 06:28] LABS: Hematocrit 27.3 % (39.0-52.0); Hemoglobin 8.7 g/dL (13.0-18.0); Mean Corp Hgb Conc. 31.9 g/dL (33.0-37.0); Mean Corpuscular Hgb 32.8 pg (27.0-31.0); Mean Platelet Volume 10.5 fL (7.4-10.4); Platelet Count 190 10^3/uL (130-400); Red Blood Cell Count 2.65 10^6/uL (4.70-6.10); Red Cell Dist. Width 14.5 % (11.5-14.5); White Blood Cell Count 6.1 10^3/uL (4.8-10.8)
[2024-08-10 07:29] LABS: Blood Urea Nitrogen 26 mg/dl (9-20); Carbon Dioxide 26 mmol/L (22-30); Chloride 103 mmol/L (98-107); Estimated Creatinine Clearance 36 ml/min; Glucose 94 mg/dl (70-99); Potassium 4.4 mmol/L (3.5-5.1); Sodium 138 mmol/L (135-145); eGFR 34.16
[2024-08-10 07:40] VITALS: BP 136/61
[2024-08-10] MEDS: NOVOLOG FLEXPEN SC (08:04)
[2024-08-10] MEDS: NOVOLOG FLEXPEN-LOW RESISTANCE SC ×2 (08:04→11:51)
[2024-08-10] MEDS: FOLVITE 1 MG PO (08:05)
[2024-08-10] MEDS: COREG 3.125 MG PO ×2 (08:05→20:29)
[2024-08-10] MEDS: VITAMIN B1 100 MG PO ×2 (08:05→20:29)
[2024-08-10] MEDS: CYMBALTA DELAYED RELEASE 60 MG PO (08:05)
[2024-08-10] MEDS: PROTONIX 40 MG PO (08:05)
[2024-08-10] MEDS: ASPIR LOW (ENTERIC COATED) 81 MG PO (08:05)
[2024-08-10] MEDS: THERAGRAN 1 TABLET PO (08:05)
[2024-08-10] MEDS: VITAMIN E 400 UNITS PO (08:05)
[2024-08-10] MEDS: KCL 20 MEQ PO (08:05)
[2024-08-10] MEDS: ERYTHROMYCIN 0.5% OPHTHALMIC OINTMENT 1 APPLIC RIGHT EYE ×4 (08:06→20:35)
[2024-08-10] MEDS: MIRALAX PO (08:06)
[2024-08-10] MEDS: PRED FORTE 1% EYE DROPS 1 DROP RIGHT EYE ×4 (08:06→21:26)
[2024-08-10] MEDS: SENOKOT-S PO ×2 (08:11→20:24)
[2024-08-10] MEDS: FARXIGA 10 MG PO (08:24)
--- NOTE | 2024-08-10 09:39 | PN.CDI ---
CDI
- -
CDI:
Physician Documentation Request
Admit Date: 08/05/24 21:39
Dear Doctor Charles,
Please review the following and provide your response in the progress notes.
Clinical Indicators:
- RN skin assessments indicate scab on right 5th lateral toe suspected pressure injury, POA
Physician documentation of the type and location of wounds is required for compliant documentation. Based on the above clinical findings and your assessment, please provide the following in your progress note:
1. Location of the ulcer/wound, including laterality.
2. Type (etiology) of ulcer/wound:
- Diabetic ulcer
- Arterial (ischemic) ulcer
- Traumatic wound
- Venous stasis ulcer
- Pressure (decubitus) ulcer
- Non-healing surgical wound
- Other
- Unable to determine
3. For a non-pressure ulcer, please indicate the depth/severity:
- Limited to the breakdown of skin
- With fat layer exposed
- With necrosis of muscle
- With necrosis of bone
- Other
- Unable to determine
4. If a pressure ulcer, please also include the stage* of the ulcer:
- Stage 1 - Skin intact, non-blanchable redness
- Stage 2 - Partial thickness loss of dermis, includes intact or open blister
- Stage 3 - Full thickness tissue not including bone, tendon or muscle
- Stage 4 - Full thickness tissue loss, including exposed bone, tendon or muscle
- Unstageable - Full thickness loss in which the base of the ulcer is covered by slough (yellow, rios, olmos, green or brown) and/or eschar (rios, brown or black) in the wound bed.
- Unable to determine
Use of terms such as suspected, likely, concern for, or probable (associated with a specific diagnosis that is being evaluated, monitored, or treated as if it exists) are acceptable and can be coded in the inpatient setting, when documented at the
time of discharge.
Thank you,
Masood Gutierrez RN
CDI Specialist
Please use your independent medical judgment in providing your response.
*Source: National Pressure Ulcer Advisory Panel (NPUAP)
[2024-08-10] MEDS: SODIUM BICARBONATE 1150 MEQ IV (09:57)
--- NOTE | 2024-08-10 11:10 | W.PN.CARDCBS ---
Today's Communication / Plan
-
RECOMMENDATIONS:
-Pulmonary consult for COPD exacerbation and diffuse wheezing
-IV diuressis
-Start IV heparin so we can do right and left heart catheterization as soon as he is able to lay recumbent
Impression / Plan
-
Primary Care Provider: Dr. Glasgow
Primary Digital Product Specialist: Dr. Moreno
Presented 08/05/2024 with severe shortness of breath and weakness with minimal exertion. Denies weight gain. Wt 180 lbs in cardiology office 07/06/2024. Overall outpatient wt down 24 lbs over past year (wt 204 lbs 05/2023). Reports 20 pound
weight loss in past 6 months. reports significant decline in past 2 to 3 weeks with worsening weakness and has been unable to support him with ambulation. Patient can only walk very short distance such as to bathroom without becoming weak and
having falls. He has had multiple falls in the last few weeks. Complains of dizziness, feeling like he blacks out, leading to fall. Patient reports no alcohol in the past week but previously drinking 2-3 vodka drinks daily.
Assessment:
Respiratory distress with diffuse wheezing bilaterally, hypoxia, and O2 Sats 85%
Acute on chronic HFrEF, NYHA class 3-4
HFrEF
Low flow low gradient / Moderate to severe with peak/mean gradients 38/21, WES 1.1 cm�. low-flow/low gradient severe , mild AI, echo 07/23/2024
CM w/ variable EF, most recent echo 07/23/2024 w/ decline in EF 30-35%
CHINEDU on CKD
Fall at home, possibly syncope
COPD
CKD 3b
Hypomagnesemia
Permanent atrial fibrillation
Chronic Xarelto OAC, creat clearance 39 based on creat 1.9 08/06/2024.
s/p [employer] ICD 2014 s/p generator change 12/25/22
CAD
s/p CABG with [facility] to LAD and SVG to L PLB in 2008
cath with balloon angioplasty at [facility] to LAD ostial region in 2014
Type 2 DM
HLD
HTN
BPH
GERD
Ongoing tobacco use
ETOH use disorder, likely moderate to severe
LBBB
ECHO 12/20/19: 25-30%, global hypokinesis with mid anteroseptal, mid anterior, apical akinesis, dyskinesis of inferior apex, MAC, mild to moderate , peak/mean gradients 37/18 mmHg, WES 1.0 cm�, mild TR, PAP 37 mmHg
Echo 06/09/20: EF 25-30%, mild MR, mod peak/mean 30/15 mmHg WES 1.3 cm sq, dilated RV with grossly normal function
Echo 10/25/22: EF 45%, apical and anteroseptal wall akinesis, trace MR, mod to sev with peak/mean 33/19 mmHg and WES 0.8 cm sq
Echo 07/23/2024: EF 35% (visually 30 to 35%, mid to distal anteroseptal and apical akinesis, normal RV size and function, calcified, restricted AV. Peak/mean AV gradients 38/21. WES 1.1 cm�. Visually AV appears more stenotic, question whether there
could be a low flow/low gradient severe . Mild AI I. Mild to moderate TR, PAP 50 to 55 mmHg, mild to moderate MR
Plan:
Respiratory insufficiency with inability to lay recumbent
He is not stable to proceed with right and left heart catheterization at this time.
He has known significant underlying pulmonary issues and will ask for pulmonary consult
Probably will need a course of steroids and probably more diuresis
Right heart catheterization +/- left heart catheterization to determine filling pressures. Will eventually need full left heart with 2 transducers and AV assessment
Acute decompensated heart failure with reduced ejection fraction :
Volume status is difficult. More wheezing than rales but probably needs gentle IV diuresis
Will need to watch renal function closely
Continue supportive care. Suspect course of steroids may be helpful
Continue usual outpatient heart failure meds including Jardiance 10 mg daily, carvedilol 3.125 mg twice daily
Concern for symptomatic severe aortic stenosis in the setting of significant LV dysfunction/low gradient
Workup for aortic stenosis ongoing. Planned right and left heart in future
Fall at home, possible syncope. There was some concern for the possibility of arrhythmias.
ICD interrogated 08/06/2024 finding no sustained arrhythmias, 100% A-fib, 50% ventricular paced. .. No arrhythmic etiology to this event
Persistent atrial fibrillation
Rate is controlled by device diagnostics and by telemetry
Heparin for now while awaiting catheterization. He will need FEMORAL approach so would want off OAC for 48 hours for sure
Chronic kidney disease, creatinine 2.1
At recent baseline which is ranged from 1.5-1.9 since 2022
Patient got 60 mg of IV Lasix on 08/05 and 08/06/2024 but none since. Now multifactorial shortness of breath with inability to lay flat. I saw patient yesterday lying at 30-degree angle in bed and appearing comfortable.
Continue ASA, statin for history of CAD, no anginal symptoms, troponin negative.
PT/OT
Plan discussed with nursing, hospitalist, nephrology and cardiology. Patient's at bedside and also discussed plan with her
Progress Note - Digital Product Specialist
Subjective
Date of Service: August 10, 2024
Patient arrived to the catheterization lab and appeared comfortable but was wheezing and very very short of breath when moved from his bed to the catheterization table.
Objective
Labs:
08/10/24 05:40
08/10/24 05:40
Labs
Hgb 8.7 g/dL (13.0-18.0) L 08/10/24 05:40
Hct 27.3 % (39.0-52.0) L 08/10/24 05:40
Plt Count 190 10^3/uL (130-400) 08/10/24 05:40
Sodium 138 mmol/L (135-145) 08/10/24 05:40
Potassium 4.4 mmol/L (3.5-5.1) 08/10/24 05:40
BUN 26 mg/dl (9-20) H 08/10/24 05:40
Creatinine 2.0 mg/dL (0.7-1.3) H 08/10/24 05:40
Glucose 94 mg/dl (70-99) 08/10/24 05:40
Vital Signs and I&O:
Vital Signs
Temp Pulse Resp BP Pulse Ox
97.6 F 79 18 136/65 99
08/10/24 07:40 08/10/24 08:05 08/10/24 07:40 08/10/24 08:05 08/10/24 07:55
Vital Signs
Temp Pulse Resp BP Pulse Ox
97.6 F 79 18 136/65 99
08/10/24 07:40 08/10/24 08:05 08/10/24 07:40 08/10/24 08:05 08/10/24 07:55
Intake & Output
08/07/24 08/08/24 08/09/24 08/10/24
23:59 23:59 23:59 23:59
Intake Total 1455 / 1455 720 / 720 1100 / 1100 240 / 240
Output Total 1760 / 1760 750 / 750 655 / 655 575 / 575
Balance -305 / -305 -30 / -30 445 / 445 -335 / -335
Physical Exam
Physical Exam
Gen: Awake, alert and talking in short sentences
HEENT: NC/AT, breathing through pursed lips
Lungs: Diffuse bilateral wheezing
CV: Regular paced rhythm
Ext: No edema
--- NOTE | 2024-08-10 11:31 | PTCARENOTE ---
Patient taken to cheesemaking laborer. Shortly after received report from medical laboratory manager RN that patient was not able to lie flat for procedure due to complaint of shortness of breath. Upon arrival to the floor pulse ox 99% on 2L. Sitting at 30 degrees in bed. Plan
of care on going.
--- NOTE | 2024-08-10 11:32 | W.PN.HOSP.TC ---
Today's Communication/Plan
-
Started on steroids
Diuretics per nephrology
Stop bicarb
Pulmonology consult
Assessment / Plan
Assessment / Plan
Acute on chronic systolic CHF
Acute hypoxic respiratory insufficiency
Severe
- s/p TTE 07/23 with concern for low flow/low gradient severe ; mild to moderate MR. Compared to prior study 04/01/2023 aortic valve gradients are lower than noted previously but visually aortic valve appears severely stenotic. Left ventricular
ejection fraction previously noted to be 45 to 50% and now visually 30 to 35%. Pulmonary artery pressure previously 34 mmHg now 50 to 55 mmHg.
- GDMT: continue Coreg, Jardiance
- DCA cards following
-08/09 Cardiology initially plan to do left/right heart catheterization although with creatinine elevation nephro input has been requested. Patient at risk of COLETTE. Unfortunately without heart catheterization patient at risk of further deterioration
of cardiac issues. Difficult situation.
-08/10 patient unable to tolerate heart catheterization as became orthopneic on table with oxygen saturation going down. Was brought back to medical floor.
-Discussed with cardiology/nephrology/pulmonology
COPD flare up
-Patient wheezing on exam
-Being started on IV Decadron 4 mg every 8 hours
-Maintain on duo-neb therapy
-morphine IV 0.5 mg every 4hrs ordered for dyspnea by optics test technician.
Acute anemia on chronic anemia
- hbg stable around 8-9 range, continue monitor for bleeding issues.
- anemia indices normal, hemolysis panels negative
CKD stage 3b
-Creatinine remains stable
-Nephrology following, patient to be considered for IV diuretic trial.
CAD s/p CABG
Hx of [place]
HX of ICD 2022
HLD
- continue ASA/Statin/BB
Essential HTN
- continue BP meds
NIDDM
- hold Metformin. continue Jardiance.
- continue low dose basal/bolus regimen for uncontrolled sugars while off Metformin
- SSI
- A1c: 7.0%
permanent Atrial Fibrillation
- continue Coreg
- on heparin drip currently, xarelto on hold.
Hx Alcohol Abuse
Unstable Gait
- B12 normal, Folate normal, B1 pending
- msas discontinued
Chronic T12 compression deformity with possible superimposed acute/subacute component
Partially healed minimally displaced fractures involving the posterior left 9th through 12th ribs
hx of CVA - continue ASA/Statin
GERD - continue PPI
DVT ppx: heparin drip
Code: DNR/DNI
Care plan discussed with cardiology/pulmonology/nephrology.
08/10 Patient visibly upset and being verbally argumentative. Blaming for ' lack of co-ordination ' and ' lack of any actions '. Unable to reason with spouse that patient kidney function needed to be stabilized before attempt at heart cath.
Same reason diuretics needed to be held , this unfortunately did cause orthopnea today and resulting aborting heart cath. Unfortunately provided empiric diuretics without invasive volume assessment would have caused renal failure as well and thus
would have excluded as a candidate of heart cath. There is no good answer and unfortunately spouse not in a state of understanding any of this.
Of note spouse clenching teeth and making fist/shaking and at time reported inappropriate threatening behavior to medical staff.
Total time spent : 65 mins
Anticipated Discharge: > 48 hours
Subjective/Interval History
-
Date of Service: August 10, 2024
heart cath was aborted as patient was severely orthopneic and o2 saturation dropped to mid 80s
unable to get detailed information as patient spouse in the room and visibly upset and hindrance to patient care
Objective Data
-
Labs:
Laboratory Results
08/10/24
05:40
WBC 6.1
Hgb 8.7 L
Hct 27.3 L
Plt Count 190
Sodium 138
Potassium 4.4
Chloride 103
Carbon Dioxide 26
BUN 26 H
Creatinine 2.0 H
Glucose 94
Calcium 9.0
Vital Signs:
Vital Signs
Temp Pulse Resp BP Pulse Ox
97.6 F 56 24 136/65 100
08/10/24 07:40 08/10/24 11:27 08/10/24 11:27 08/10/24 08:05 08/10/24 11:27
I&O
08/09/24 08/10/24 08/11/24
06:59 06:59 06:59
Intake Total 1460 / 1460 600 / 600
Output Total 680 / 680 850 / 850
Balance 780 / 780 -250 / -250
Review of Systems
-
Unable to obtain full review of systems at this time due to: Other (unable to obtain - see above)
Physical Exam
-
HEENT: Oxygen (2L NC)
Respiratory: Wheezes
Cardiac: Regular Rhythm and S1/S2; Negative Murmur
Neuro: Awake, Alert, Oriented and No Motor Deficits
[2024-08-10] MEDS: DECADRON 4 MG IV ×2 (11:47→20:29)
[2024-08-10 11:50] VITALS: BP 147/73
[2024-08-10 11:54] LABS: Glucose - Point of Care 129 mg/dl (70-99)
--- NOTE | 2024-08-10 11:55 | CON.PUL ---
Consultation
Consultation Request
Date/Time Consultation Requested: 08/10/24
Date/Time Consultation Performed: 08/10/24
Performing Provider: Alfonso
Reason for Consultation: Orthopnea, wheezing
Medical History
-
History of Present Illness:
Patient is a 74-year-old male with previous history of COPD, heart failure, hypertension, CVA, ANTWAN not on CPAP presenting to ER for increased shortness of breath and generalized weakness over the past few weeks to months. He was admitted to
on 08/05/2024 and underwent workup for heart failure. Underwent attempted cardiac catheterization on 08/10/2024 but could not proceed due to orthopnea and wheezing. notes that he has become progressively worsening over the past few weeks to
months and over the course of the last few days. He has now been placed on IV steroids, we are consulted for evaluation.
Of note, he was seen in our office in [address] Tadeo. He did not return for follow-up. At that time his PFTs indicated moderate obstruction. He is continue to smoke 1 pack/day. He also has a history of severe obstructive sleep apnea with an
AHI of 31, he has not been treated since his diagnosis.
Past Medical History
Past Medical History: Other (see list below)
Social History
Tobacco: Smoker
Alcohol: Daily
Drug: None
Family History
Family History: Reviewed & Not Pertinent
Allergies / Home Medications
Allergies
Allergy/AdvReac Type Severity Reaction Status Date / Time
No Known Allergies Allergy Verified 08/05/24 16:17
Home Medications
�Medication �Instructions �Recorded �Confirmed �Last Taken �Type
pantoprazole 40 mg tablet,delayed 40 mg PO DAILY Gastrointestinal 09/28/13 08/05/24 08/04/24 History
release issue
rosuvastatin 40 mg tablet (Crestor) 40 mg PO QPM High cholesterol 12/19/19 08/05/24 08/04/24 History
carvedilol 3.125 mg tablet 3.125 mg PO BID Blood pressure 09/05/0908/05/24 08/04/24 History
multivitamin with folic acid 400 1 tab PO DAILY Supplement 03/30/20 08/05/24 08/04/24 History
mcg tablet (Tab-A-Elli)
aspirin 81 mg tablet,delayed 81 mg PO DAILY Blood clot 06/09/20 08/05/24 08/04/24 History
release prevention/tx
coenzyme Q10 100 mg capsule (Co 100 mg PO DAILY Supplement 06/09/20 08/05/24 08/04/24 History
Q-10)
metformin 1,000 mg tablet 1,000 mg PO DAILY Diabetes #30 tabs 06/13/20 08/05/24 08/04/24 Rx
rivaroxaban 20 mg tablet (Xarelto) 20 mg PO QPM 06/13/20 08/05/24 08/04/24 Rx
empagliflozin 10 mg tablet 10 mg PO DAILY Diabetes 12/04/22 08/05/24 08/04/24 History
(Jardiance)
potassium chloride 20 mEq 20 meq PO DAILY Supplement 12/04/22 08/05/24 08/04/24 History
tablet,extended
release(part/cryst) (Klor-Con M)
vitamin E 400 unit tablet 400 unit PO DAILY Supplement 12/04/22 08/05/24 08/04/24 History
folic acid 1 mg tablet 1 mg PO DAILY #30 tabs 04/04/23 08/05/24 08/04/24 Rx
furosemide 40 mg tablet 40 mg PO DAILY Fluid 04/04/23 08/05/24 08/04/24 Rx
Retention/Swelling #30 tabs
duloxetine 60 mg capsule,delayed 60 mg PO DAILY Depression 08/05/24 08/05/24 08/04/24 History
release (Cymbalta)
erythromycin 5 mg/gram (0.5 %) eye RIGHT EYE Q1H 08/06/24 08/04/24 History
ointment
prednisolone acetate 1 % eye 1 drp RIGHT EYE QID 08/06/24 08/06/24 08/04/24 History
drops,suspension
Review of Systems
-
History Source: Patient and Family
All other systems: Negative unless noted
Vitals / Labs / Diagnostic Testing
Vital Signs
Temp Pulse Resp BP Pulse Ox
97.6 F 56 24 136/65 100
08/10/24 07:40 08/10/24 11:27 08/10/24 11:27 08/10/24 08:05 08/10/24 11:27
Lab Data
08/10/24 05:40
08/10/24 05:40
Diagnostic Testing:
Physical Exam
-
HEENT: Normocephalic, Anicteric and Moist Mucous Membranes
Cardiovascular: S1/S2 and Regular Rhythm
Respiratory: Wheeze and Accessory Resp Muscle Use (paradoxical breathing noted)
GI: Soft, Distended and Non Tender
Neurology: Awake, Alert, Oriented and No Motor Deficits
Skin: Warm, Dry and Good Color
General: Respiratory Distress (mild), Poor Appetite and Other (ill appearing)
Assessment
-
Patient is a 74-year-old male with previous history of COPD, heart failure, hypertension, CVA, ANTWAN not on CPAP presenting to ER for increased shortness of breath and generalized weakness over the past few weeks to months. He was admitted to
on 08/05/2024 and underwent workup for heart failure. Underwent attempted cardiac catheterization on 08/10/2024 but could not proceed due to orthopnea and wheezing. notes that he has become progressively worsening over the past few weeks to
months and over the course of the last few days. He has now been placed on IV steroids, we are consulted for evaluation.
Acute on chronic SOB/wheezing
Orthopnea
Acute decompensated heart failure with reduced EF
Possible AECOPD
Noncompliance
Progressive kidney injury, likely cardiorenal
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
Moderate COPD, last seen 2018
Current smoker
Severe ANTWAN not on CPAP
Daily chronic alcohol use
Plan
Currently saturating 98% on 2L NC
Home O2 evaluation eventually
Prior history of lung disease is noted including--COPD/ANTWAN not on CPAP
Of note, he was seen in our office in [address] Tadeo. He did not return for follow-up. At that time his PFTs indicated moderate obstruction.
He has continued to smoke 1 pack/day. He also has a history of severe obstructive sleep apnea with an AHI of 31, he has not been treated since his diagnosis.
Suspect patient has AECOPD with AECHF but at this point this is difficult to discern
CXR/CT obtained indicating possible edema, new
proBNP is elevated
Agree with IV steroids
Suspect lung function is now severely obstructed if PFT from 6 years ago was moderate obstructed
He has not come back for repeat testing and has not taken inhaler therapy
He has history of severe ANTWAN, not on CPAP
He is willing to try PAP, will order
I did review this with his
Prior ECHO results are reviewed indicating reduced EF
Cards following
Cath attempted but could not lie flat
Diuresis attempts are complicated by renal disease
Smoking history noted
Smoking cessation recommended
ETOH use noted, MSAS on
Can stop has not used in 4 days, likely past w/d window
Will add PRN morphine for SOB
is tearful that he is not getting better
We confirmed that he is DNR
Will need outpatient pulmonary evaluation in our office for PFTs and 6MWT
Reviewed with patient and
We will follow
Diagnostic Data
Chest X-Ray: 08/05/24- No acute cardiopulmonary process.
CXR 08/10/24- Slightly widespread bilateral prominent pulmonary interstitial markings, nonspecific. Some differential diagnostic possibilities include interstitial edema or pneumonitis.
CT Scan: CHEST 02/18/19- Central airways are patent. There is a stable 3 mm calcified granuloma within the left apex. Poorly defined 4 mm nodule within the right middle lobe adjacent to the fissure, which also appears stable (image 35, series 301).
Previously seen isolated 8 mm nodule within the posterior left upper lobe adjacent to the major fissure on the prior CT from 07/07/2015 no longer visualized and appears to have resolved. No new nodules or focal airspace disease. No pleural effusions
or pneumothorax.
Echo: 07/23/24-Normal left ventricular chamber size. Moderate to severely reduced left ventricular systolic function. Left ventricular ejection fraction is 35% by Toribio's Method of Disc (visually 30 to 35%). Mid to distal lucas-septal and
apical akinesis. Mild concentric left ventricular hypertrophy. Normal right ventricular size and function. Calcified, restricted aortic valve. Peak gradient 38mmHg/Mean gradient 21mmHg - using an LVOT of 2.1cm the estimated aortic valve area is
1.1cm2. Visually aortic valve appears more stenotic and I question whether there could be low- flow/low gradient severe aortic valve stenosis. Mild aortic regurgitation. Tricuspid valve opens normally. Mild to moderate tricuspid regurgitation.
Estimated pulmonary artery pressure of 50-55 mmHg assuming a right atrial pressure of 3 mmHg. Mild to moderate mitral regurgitation. Compared to prior study 04/01/2023 aortic valve gradients are lower than noted previously but visually aortic valve
appears severely stenotic. Left ventricular ejection fraction previously noted to be 45 to 50% and now visually 30 to 35%. Pulmonary artery pressure previously 34 mmHg now 50 to 55 mmHg.
PFT's: 01/18/2019: Reviewed demonstrated FEV1/FVC 64%, FEV1 2.41 L to 67%, FVC 3.76 L-77%. TLC 5.77 L-75%, RV 2.23 L 781%, DLCO 10.59-36%. Moderate airflow obstruction. Mild restriction with severe gas to change abnormality.
Spirometry 12/28/2018: FEV1/FVC 66%, FEV1 postbronchodilator 2.16 L-59%, FVC 3.26 L-65%.
Reports and relevant images were personally reviewed.
Total time spent on this consultation __76__ minutes which includes review of history, physical exam, medications, laboratory data, personal review of imaging, extensive review of outpatient records, discussion with care team and respiratory therapy.
[2024-08-10] MEDS: NOVOLOG FLEXPEN 4 UNITS SC ×2 (11:58→17:24)
[2024-08-10 12:55] LABS: Hematocrit 27.4 % (39.0-52.0); Hemoglobin 8.5 g/dL (13.0-18.0); Mean Platelet Volume 10.4 fL (7.4-10.4); Platelet Count 175 10^3/uL (130-400); Red Blood Cell Count 2.66 10^6/uL (4.70-6.10); Red Cell Dist. Width 14.7 % (11.5-14.5); White Blood Cell Count 5.5 10^3/uL (4.8-10.8)
[2024-08-10 13:09] LABS: APTT 38.7 Sec (23.4-35.0)
[2024-08-10] MEDS: HEPARIN 25000 UNITS/250 ML IV (13:16)
--- NOTE | 2024-08-10 13:32 | PTCARENOTE ---
Sabrina noted on tele. Dr. Moreno notified. Strip in chart. Plan of care on going.
--- NOTE | 2024-08-10 14:36 | W.PN.NEPH.PH ---
Today's Communication / Plan
-
lasix
Assessment/Plan
-
Assessment
CHINEDU
CKD3b
Heart failure reduced ejection fraction decompensated
Severe aortic stenosis
Moderate MR/TR
Smoking, alcohol use
Coronary artery disease with bypass
diabetes mellitus type 2
A-fib pacer
Hypertension
Plan
no IVF
lasix 80mg IV daily
pulmonary eval
cath once able to lay flat
follow BMP
-
-
Date of Service: August 10, 2024
CC / HPI / ROS
-
Chief Complaint:
CHINEDU
History of Present Illness:
CHINEDU/Cr stable 2.0
K stable
BP stable
remains SOB
Unable to do catheter unable to do cardiac catheterization due to orthopnea
Review of Systems:
no CP
SOB
Labs
-
Labs:
WBC 5.5 10^3/uL (4.8-10.8) 08/10/24 12:33
RBC 2.66 10^6/uL (4.70-6.10) L 08/10/24 12:33
Hgb 8.5 g/dL (13.0-18.0) L 08/10/24 12:33
Hct 27.4 % (39.0-52.0) L 08/10/24 12:33
Plt Count 175 10^3/uL (130-400) 08/10/24 12:33
Sodium 138 mmol/L (135-145) 08/10/24 05:40
Potassium 4.4 mmol/L (3.5-5.1) 08/10/24 05:40
Chloride 103 mmol/L (98-107) 08/10/24 05:40
Carbon Dioxide 26 mmol/L (22-30) 08/10/24 05:40
BUN 26 mg/dl (9-20) H 08/10/24 05:40
Creatinine 2.0 mg/dL (0.7-1.3) H 08/10/24 05:40
eGFR 34.16 08/10/24 05:40
Glucose 94 mg/dl (70-99) 08/10/24 05:40
Calcium 9.0 mg/dl (8.4-10.2) 08/10/24 05:40
Phosphorus 2.9 mg/dl (2.5-4.5) 08/07/24 04:54
Cuk-C-Ocdwnpboykl Pept 4590 pg/ml 08/05/24 16:37
Albumin 3.9 g/dl (3.5-5.0) 08/05/24 17:04
Physical Exam
-
Vital Signs:
Vital Signs
Temp Pulse Resp BP Pulse Ox
97.4 F 57 18 147/73 95
08/10/24 11:50 08/10/24 11:50 08/10/24 11:50 08/10/24 11:50 08/10/24 11:50
Cardiovascular:: Regular rate and rhythm
Respiratory:: Bilateral: Coarse, Bilateral: Rhonchi and Bilateral: Wheeze
Lung Excursion:: Normal
Abdomen:: Nontender and Soft
Bowel Sounds:: Normal
Extremity Edema:: +1: Bilateral:
--- NOTE | 2024-08-10 14:45 | CM ---
Cath on hold.
Spoke with and patient bedside.
Spouse upset, agitated, frustrated and speaking loudly.
Attempted to calm down, offered support, offered for spouse to speak with patient advocate, she declined.
CM allowed patient to vent her frustrations.
Spouse stated there is nothing anyone can do and thanked this CM for listening.
CM will continue to follow for d/c plan when medically stable.
Patient had [facility] in the past.
[2024-08-10] MEDS: LASIX 80 MG IV (15:13)
[2024-08-10 15:20] VITALS: BP 135/63
--- NOTE | 2024-08-10 15:30 | PTCARENOTE ---
of patient expressing frustration with hospital that patient was unable to have catheterization today. Patient gritted teeth, crying and making fist. of patient also making comments about hospitalist such as 'does he not know Greek? is
that what the problem is?' Risk/patient advocate notified and now involved per Dr. Soto.
[2024-08-10] MEDS: MORPHINE SULFATE 0.5 MG IV ×2 (16:04→20:39)
[2024-08-10 16:53] LABS: Glucose - Point of Care 213 mg/dl (70-99)
[2024-08-10] MEDS: CRESTOR 40 MG PO (17:23)
[2024-08-10] MEDS: NOVOLOG FLEXPEN-LOW RESISTANCE 300 UNITS SC (17:24)
[2024-08-10 19:48] VITALS: BP 126/63
[2024-08-10] MEDS: PULMICORT 0.5 MG INH (19:54)
[2024-08-10 20:12] LABS: APTT 76.9 Sec (23.4-35.0)
[2024-08-10 21:09] LABS: Glucose - Point of Care 304 mg/dl (70-99)
[2024-08-10] MEDS: LANTUS 0.08 UNITS SC (21:25)
[2024-08-10 23:50] VITALS: BP 126/66
[2024-08-11] MEDS: ERYTHROMYCIN 0.5% OPHTHALMIC OINTMENT RIGHT EYE ×2 (00:13→03:27)
--- NOTE | 2024-08-11 02:16 | DOWNTIME ---
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 Downtime documentation of patient's care, including medication administrations, has been reconciled in the electronic record per guidelines. Refer to the
patient's paper chart under the miscellaneous tab to see printed paper medication records and downtime forms.
[2024-08-11 02:59] LABS: Hematocrit 25.1 % (39.0-52.0); Hemoglobin 8.2 g/dL (13.0-18.0); Mean Corp Hgb Conc. 32.7 g/dL (33.0-37.0); Mean Corpuscular Hgb 32.4 pg (27.0-31.0); Mean Corpuscular Volume 99.2 fL (80.0-94.0); Mean Platelet Volume 10.4 fL (7.4-10.4); Platelet Count 181 10^3/uL (130-400); Red Blood Cell Count 2.53 10^6/uL (4.70-6.10); Red Cell Dist. Width 14.6 % (11.5-14.5)
[2024-08-11 03:06] LABS: APTT 129.8 Sec (23.4-35.0)
[2024-08-11 03:10] VITALS: BP 123/57
[2024-08-11] MEDS: DECADRON 4 MG IV ×3 (03:14→21:16)
[2024-08-11 03:42] LABS: Blood Urea Nitrogen 35 mg/dl (9-20); Carbon Dioxide 24 mmol/L (22-30); Chloride 100 mmol/L (98-107); Estimated Creatinine Clearance 36 ml/min; Glucose 234 mg/dl (70-99); Potassium 4.4 mmol/L (3.5-5.1); Sodium 136 mmol/L (135-145); eGFR 34.16
[2024-08-11 06:00] VITALS: BMI 24.4
[2024-08-11] MEDS: PULMICORT 0.5 MG INH ×2 (07:06→19:10)
[2024-08-11] MEDS: DUONEB 3 ML INH ×4 (07:06→19:10)
[2024-08-11] MEDS: HEPARIN 25000 UNITS/250 ML IV (07:17)
[2024-08-11 07:26] VITALS: BP 105/61
[2024-08-11 07:38] LABS: Glucose - Point of Care 209 mg/dl (70-99)
[2024-08-11] MEDS: SENOKOT-S PO ×2 (08:22→21:15)
[2024-08-11] MEDS: MIRALAX PO (08:22)
[2024-08-11] MEDS: PROTONIX 40 MG PO (08:22)
[2024-08-11] MEDS: COREG 3.125 MG PO ×2 (08:22→21:16)
[2024-08-11] MEDS: VITAMIN E 400 UNITS PO (08:23)
[2024-08-11] MEDS: THERAGRAN 1 TABLET PO (08:23)
[2024-08-11] MEDS: LASIX 80 MG IV (08:23)
[2024-08-11] MEDS: KCL 20 MEQ PO (08:23)
[2024-08-11] MEDS: ASPIR LOW (ENTERIC COATED) 81 MG PO (08:23)
[2024-08-11] MEDS: CYMBALTA DELAYED RELEASE 60 MG PO (08:23)
[2024-08-11] MEDS: FARXIGA 10 MG PO (08:23)
[2024-08-11] MEDS: NOVOLOG FLEXPEN 4 UNITS SC (08:24)
[2024-08-11] MEDS: NOVOLOG FLEXPEN-LOW RESISTANCE 2 UNITS SC (08:24)
[2024-08-11] MEDS: PRED FORTE 1% EYE DROPS 1 DROP RIGHT EYE ×4 (08:25→21:28)
[2024-08-11] MEDS: ERYTHROMYCIN 0.5% OPHTHALMIC OINTMENT 1 APPLIC RIGHT EYE ×4 (08:33→21:15)
--- NOTE | 2024-08-11 08:45 | W.PN.PUL3 ---
Today's Communication / Plan
-
Better today, tried bipap for 1 hr then removed it, encouraged further usage
IV steroids, can start to wean by tomorrow if remains improved
Continue nebs, will transition to inhalers to go home on
PFT today
Cath planning tomorrow per team
Assessment
-
Patient is a 74-year-old male with previous history of COPD, heart failure, hypertension, CVA, ANTWAN not on CPAP presenting to ER for increased shortness of breath and generalized weakness over the past few weeks to months. He was admitted to
on 08/05/2024 and underwent workup for heart failure. Underwent attempted cardiac catheterization on 08/10/2024 but could not proceed due to orthopnea and wheezing. notes that he has become progressively worsening over the past few weeks to
months and over the course of the last few days. He has now been placed on IV steroids, we are consulted for evaluation.
Acute on chronic SOB/wheezing
Orthopnea
Acute decompensated heart failure with reduced EF
Possible AECOPD
Noncompliance
Progressive kidney injury, likely cardiorenal
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
Moderate COPD, last seen 2018
Current smoker
Severe ANTWAN not on CPAP
Daily chronic alcohol use
Plan
Currently saturating 98% on 2L NC
Home O2 evaluation eventually
Prior history of lung disease is noted including--COPD/ANTWAN not on CPAP
Of note, he was seen in our office in [address] Tadeo. He did not return for follow-up. At that time his PFTs indicated moderate obstruction.
He has continued to smoke 1 pack/day. He also has a history of severe obstructive sleep apnea with an AHI of 31, he has not been treated since his diagnosis.
Suspect patient has AECOPD with AECHF but at this point this is difficult to discern
CXR/CT obtained indicating possible edema, new
proBNP is elevated
Agree with IV steroids
Suspect lung function is now severely obstructed if PFT from 6 years ago was moderate obstructed
He has not come back for repeat testing and has not taken inhaler therapy
Obtain PFT
He has history of severe ANTWAN, not on CPAP
He is willing to try PAP, will order--tried for 1 hr and took off
Can leave on PRN
I did review this with his
Prior ECHO results are reviewed indicating reduced EF
Cards following
Cath attempted but could not lie flat
Diuresis attempts are complicated by renal disease
Smoking history noted
Smoking cessation recommended
ETOH use noted, MSAS on
Can stop has not used in 4 days, likely past w/d window
Continue PRN morphine for SOB
is tearful that he is not getting better
We confirmed that he is DNR
Will need outpatient pulmonary evaluation in our office for PFTs and 6MWT
Reviewed with patient and
Diagnostic Data
Chest X-Ray: 08/05/24- No acute cardiopulmonary process.
CXR 08/10/24- Slightly widespread bilateral prominent pulmonary interstitial markings, nonspecific. Some differential diagnostic possibilities include interstitial edema or pneumonitis.
CT Scan: CHEST 02/18/19- Central airways are patent. There is a stable 3 mm calcified granuloma within the left apex. Poorly defined 4 mm nodule within the right middle lobe adjacent to the fissure, which also appears stable (image 35, series 301).
Previously seen isolated 8 mm nodule within the posterior left upper lobe adjacent to the major fissure on the prior CT from 07/07/2015 no longer visualized and appears to have resolved. No new nodules or focal airspace disease. No pleural effusions
or pneumothorax.
Echo: 07/23/24-Normal left ventricular chamber size. Moderate to severely reduced left ventricular systolic function. Left ventricular ejection fraction is 35% by Toribio's Method of Disc (visually 30 to 35%). Mid to distal lucas-septal and
apical akinesis. Mild concentric left ventricular hypertrophy. Normal right ventricular size and function. Calcified, restricted aortic valve. Peak gradient 38mmHg/Mean gradient 21mmHg - using an LVOT of 2.1cm the estimated aortic valve area is
1.1cm2. Visually aortic valve appears more stenotic and I question whether there could be low- flow/low gradient severe aortic valve stenosis. Mild aortic regurgitation. Tricuspid valve opens normally. Mild to moderate tricuspid regurgitation.
Estimated pulmonary artery pressure of 50-55 mmHg assuming a right atrial pressure of 3 mmHg. Mild to moderate mitral regurgitation. Compared to prior study 04/01/2023 aortic valve gradients are lower than noted previously but visually aortic valve
appears severely stenotic. Left ventricular ejection fraction previously noted to be 45 to 50% and now visually 30 to 35%. Pulmonary artery pressure previously 34 mmHg now 50 to 55 mmHg.
PFT's: 01/18/2019: Reviewed demonstrated FEV1/FVC 64%, FEV1 2.41 L to 67%, FVC 3.76 L-77%. TLC 5.77 L-75%, RV 2.23 L 781%, DLCO 10.59-36%. Moderate airflow obstruction. Mild restriction with severe gas to change abnormality.
Spirometry 12/28/2018: FEV1/FVC 66%, FEV1 postbronchodilator 2.16 L-59%, FVC 3.26 L-65%.
Reports and relevant images were personally reviewed.
Total time spent on this encounter __51__ minutes which includes review of history, physical exam, medications, laboratory data, personal review of imaging, extensive review of outpatient records, discussion with care team and respiratory therapy.
Subjective Data
-
Date of Service:
Date of Service: August 11, 2024
Chief Complaint: Pulmonary Follow Up
Subjective:
Better today, feels he has improved
Wore BIPAP for 1 hr but then took it off
He felt the morphine helped as well
Objective Data
Data Reviewed
Vital Signs / I&O / Oxygen:
Vital Signs
Temp Pulse Resp BP Pulse Ox
98.4 F 70 20 105/61 99
08/11/24 07:26 08/11/24 07:26 08/11/24 07:26 08/11/24 07:26 08/11/24 07:26
Intake and Output
08/10/24 08/11/2408/12/25
06:59 06:59 06:59
Intake Total 600 / 600 1320 / 1320
Output Total 850 / 850 2225 / 2225
Balance -250 / -250 -905 / -905
SaO2 99
Nasal Cannula flow liters per 2
minute
Physical Exam
General: Comfortable and Other (NAD)
HEENT: Normocephalic, Anicteric and Moist Mucous Membranes
Cardiovascular: S1-S2 and Regular Rhythm
Respiratory: Wheeze and Non-Labored Respirations
GI: Soft, Non Distended and Non Tender
Neurology: Awake, Alert, Oriented and No Motor Deficits
Skin: Warm, Dry and Good Color
Labs/Micro/Reports
Lab Data
08/11/24 02:41
08/11/24 02:41
Laboratory Results
08/10/24 08/10/24 08/11/24
12:33 19:54 02:41
APTT 38.7 H 76.9 H 129.8 H
--- NOTE | 2024-08-11 08:56 | PN.DE.MGMTRT ---
Insulin Management
- -
08/11/2024 Diabetes Management Consult
Patient admitted 08/05 with weakness, SOB - acute on chronic CHF, recent multiple falls at home. PMH ID, CAD w CABG, CHF, COPD, ANTWAN, CVA, GERD, HTN, HCL, diabetes, CKD3b, aortic stenosis. Prior to admission was taking metformin 1000 mg daily and
Jardiance 10 mg daily. A1C 7, cr 2, eGFR 34.16.
Patient is awake alert and oriented, able to discuss diabetes management. States he has diabetes 20 years, his primary doctor, Dr. Glasgow manages his diabetes.
Patient started on dexamethasone 4 mg Q 8 hours 08/10. glucose up to 304 @ HS. Received 8 units lantus, fasting glucose 209. pre meal glucose range 111 (pre dexamethasone) to 213.
Will increase AC novolog to 5 units and hs lantus to 10 units and check 3am glucose. Diet changed to include 2000 calorie.
Will follow
Discussed with nurse.
Diabetes History
- -
Type of Diabetes: 2
Pre-Admission Diabetes Regimen
08/11/24
02:41
Creatinine 2.0 H
Lab Results
Hemoglobin A1c 7.0 % (4.0-5.6) H 08/06/24 07:14
Insulin Pump Settings
IP Diabetes Regimen
08/10/24 08/10/24 08/10/24
11:49 16:45 21:08
Glucose
POC Glucose 129 H 213 H 304 H
08/11/24 08/11/24
02:41 07:36
Glucose 234 H
POC Glucose 209 H
Meal type: Lunch
Amount consumed: 50%
Patient Education
[2024-08-11 10:03] LABS: APTT 134.8 Sec (23.4-35.0)
--- NOTE | 2024-08-11 10:49 | PTCARENOTE ---
Addendum entered by Jemima Yi RN 08/11/24 16:33:
Edit to below - restarted at 1000 units from 1200 units - decreased by 200 units as per protocol.
Original Note:
PTT 134.8. Heparin placed on hold for one hour as per protocol and then will restart at 100 units - decreased from 1200 units.
--- NOTE | 2024-08-11 10:52 | W.PN.HOSP.TC ---
Today's Communication/Plan
-
Maintained on diuretics
Follow weight/creatinine
Continue steroids
Eventual re-attempt at cath once pulm status optimized
Assessment / Plan
Assessment / Plan
Acute on chronic systolic CHF
Acute hypoxic respiratory insufficiency
Severe
- s/p TTE 07/23 with concern for low flow/low gradient severe ; mild to moderate MR. Compared to prior study 04/01/2023 aortic valve gradients are lower than noted previously but visually aortic valve appears severely stenotic. Left ventricular
ejection fraction previously noted to be 45 to 50% and now visually 30 to 35%. Pulmonary artery pressure previously 34 mmHg now 50 to 55 mmHg.
- GDMT: continue Coreg, Jardiance
-08/09 Cardiology initially plan to do left/right heart catheterization although with creatinine elevation nephro input has been requested. Patient at risk of COLETTE. Unfortunately without heart catheterization patient at risk of further deterioration
of cardiac issues. Difficult situation.
-08/10 patient unable to tolerate heart catheterization as became orthopneic on table with oxygen saturation going down. Was brought back to medical floor.
-Patient has been started on IV diuretics of lasix 80mg/d, weight has trended down, renal function remains stable
COPD flare up
-08/10 CXR increased pulmonary interstitial markings possibility of interstitial edema versus pneumonitis
-Being started on IV Decadron 4 mg every 8 hours
-Maintain on duo-neb therapy
-morphine IV 0.5 mg every 4hrs ordered for dyspnea by high wire artist.
CHINEDU on CKD stage 3b
-Creatinine stable around 2
-weight down, on diuretic therapy.
-bladder scan ordered.
Acute anemia on chronic anemia
- Hbg stable around 8-9 range, continue monitor for bleeding issues.
- anemia indices normal, hemolysis panels negative
CAD s/p CABG
Hx of GA
HX of ICD 2022
HLD
- continue ASA/Statin/BB
Essential HTN
- continue BP meds
NIDDM
- A1c: 7.0%
-Currently on Lantus/insulin sliding scale
-Expect blood glucose to be uncontrolled with steroids use
-Diabetic REPEAT CHIEF help requested.
permanent Atrial Fibrillation
- continue Coreg
- on heparin drip currently, xarelto on hold.
Hx Alcohol Abuse
Unstable Gait
- B12 normal, Folate normal, B1 pending
- msas discontinued
Chronic T12 compression deformity with possible superimposed acute/subacute component
Partially healed minimally displaced fractures involving the posterior left 9th through 12th ribs
hx of CVA - continue ASA/Statin
GERD - continue PPI
DVT ppx: heparin drip
Code: DNR/DNI
08/10 Patient visibly upset and being verbally argumentative. Blaming for ' lack of co-ordination ' and ' lack of any actions '. Unable to reason with spouse that patient kidney function needed to be stabilized before attempt at heart cath.
Same reason diuretics needed to be held , this unfortunately did cause orthopnea today and resulting aborting heart cath. Unfortunately providing empiric diuretics without further definitive volume assessment would have caused renal failure as well
and thus would have excluded as a candidate of heart cath. There is no good answer and unfortunately spouse not in a state of understanding any of this.
Of note spouse clenching teeth and making fist/shaking and at time reported inappropriate threatening behavior to medical staff.
Total time spent ; 52 mins
Anticipated Discharge: > 48 hours
Subjective/Interval History
-
Date of Service: August 11, 2024
Patient resting comfortably in bed
Oxygen requirement stable
have coughing episode on deep inspiration
Objective Data
-
Labs:
Laboratory Results
08/11/24 08/11/24
02:41 09:36
WBC 4.0 L
Hgb 8.2 L
Hct 25.1 L
Plt Count 181
APTT 129.8 H 134.8 H
Sodium 136
Potassium 4.4
Chloride 100
Carbon Dioxide 24
BUN 35 H
Creatinine 2.0 H
Glucose 234 H
Calcium 9.0
Vital Signs:
Vital Signs
Temp Pulse Resp BP Pulse Ox
98.4 F 58 14 105/61 99
08/11/24 07:26 08/11/24 09:10 08/11/24 09:10 08/11/24 07:26 08/11/24 09:10
I&O
08/10/24 08/11/24 08/12/24
06:59 06:59 06:59
Intake Total 600 / 600 1320 / 1320
Output Total 850 / 850 2225 / 2225
Balance -250 / -250 -905 / -905
Review of Systems
-
Respiratory: Reports No Symptoms
Cardiac: Reports No Symptoms
Abdomen/GI: Reports No Symptoms
Physical Exam
-
General: Appears Chronically Ill and Obese
HEENT: Oxygen (2L NC)
Respiratory: Wheezes
Cardiac: Regular Rhythm and S1/S2; Negative Murmur
GI: Soft, Nontender and Nondistended
Neuro: Awake, Alert, Oriented and No Motor Deficits
[2024-08-11 11:38] VITALS: BP 113/57
--- NOTE | 2024-08-11 12:28 | W.PN.NEPH.PH ---
Today's Communication / Plan
-
Continue Lasix
Assessment/Plan
-
Assessment
CHINEDU
CKD3b
Heart failure reduced ejection fraction decompensated
Severe aortic stenosis
Moderate MR/TR
Smoking, alcohol use
Coronary artery disease with bypass
diabetes mellitus type 2
A-fib pacer
Hypertension
Plan
lasix 80mg IV daily
pulmonary eval
cath once able to lay flat
follow BMP= renal function remained stable at 2
Weight is down almost 2 kg
-
-
Date of Service: August 11, 2024
CC / HPI / ROS
-
Chief Complaint:
CHINEDU
History of Present Illness:
CHINEDU/Cr stable 2.0
K stable
BP stable
remains SOB
Unable to do catheter unable to do cardiac catheterization due to orthopnea
Review of Systems:
no CP
Negative balance 900
Labs
-
Labs:
WBC 4.0 10^3/uL (4.8-10.8) L 08/11/24 02:41
RBC 2.53 10^6/uL (4.70-6.10) L 08/11/24 02:41
Hgb 8.2 g/dL (13.0-18.0) L 08/11/24 02:41
Hct 25.1 % (39.0-52.0) L 08/11/24 02:41
Plt Count 181 10^3/uL (130-400) 08/11/24 02:41
Sodium 136 mmol/L (135-145) 08/11/24 02:41
Potassium 4.4 mmol/L (3.5-5.1) 08/11/24 02:41
Chloride 100 mmol/L (98-107) 08/11/24 02:41
Carbon Dioxide 24 mmol/L (22-30) 08/11/24 02:41
BUN 35 mg/dl (9-20) H 08/11/24 02:41
Creatinine 2.0 mg/dL (0.7-1.3) H 08/11/24 02:41
eGFR 34.16 08/11/24 02:41
Glucose 234 mg/dl (70-99) H 08/11/24 02:41
Calcium 9.0 mg/dl (8.4-10.2) 08/11/24 02:41
Phosphorus 2.9 mg/dl (2.5-4.5) 08/07/24 04:54
Hgk-F-Xhacznjloyp Pept 4590 pg/ml 08/05/24 16:37
Albumin 3.9 g/dl (3.5-5.0) 08/05/24 17:04
Physical Exam
-
Vital Signs:
Vital Signs
Temp Pulse Resp BP Pulse Ox
97.7 F 77 20 113/57 91
08/11/24 11:38 08/11/24 11:38 08/11/24 11:38 08/11/24 11:38 08/11/24 11:47
Cardiovascular:: Regular rate and rhythm
Respiratory:: Bilateral: Coarse, Bilateral: Rhonchi and Bilateral: Wheeze
Lung Excursion:: Normal
Abdomen:: Nontender and Soft
Bowel Sounds:: Normal
Extremity Edema:: +1: Bilateral:
[2024-08-11] MEDS: NOVOLOG FLEXPEN-LOW RESISTANCE 4 UNITS SC (12:34)
[2024-08-11] MEDS: NOVOLOG FLEXPEN 5 UNITS SC ×2 (12:35→16:47)
[2024-08-11 12:36] LABS: Glucose - Point of Care 336 mg/dl (70-99)
--- NOTE | 2024-08-11 13:42 | W.PN.CARDCBS ---
Addendum entered and electronically signed by Sunny Culver MD 08/11/24 14:06:
I saw and examined the patient.
The BUTANE COMPRESSOR OPERATOR or PA's note was reviewed and I agree with the note.
Comment: General: Well developed, well nourished in NAD.
Neck: Supple, no JVD, HJR, carotids +2 B/L, no bruits bilaterally.
Heart: Non displaced PMI, RRR, no murmurs, No S3, S4, no rubs.
Lungs: Scattered wheezes throughout with good air movement
Abdomen: Normal bowel sounds, soft, non-tender, non-distended.
Extremities: No clubbing, cyanosis or edema bilaterally.
Neuro: Grossly nonfocal, awake, alert and oriented x3.
Will continue IV Lasix. Weight continues to decrease. For right and left heart cath in a.m. to evaluate cardiomyopathy.
Original Note:
Today's Communication / Plan
-
Weight down 5 lbs
Ongoing IV diuresis
Will attempt R/LHC in AM
Impression / Plan
-
Primary Care Provider: Dr. Glasgow
Primary Underwater Photographer: Dr. Moreno
Assessment:
Respiratory distress with diffuse wheezing bilaterally, hypoxia, and O2 Sats 85%
Acute on chronic HFrEF, NYHA class 3-4
HFrEF
Low flow low gradient / Moderate to severe with peak/mean gradients 38/21, WES 1.1 cm�. low-flow/low gradient severe , mild AI, echo 07/23/2024
CM w/ variable EF, most recent echo 07/23/2024 w/ decline in EF 30-35%
CHINEDU on CKD 3b
Fall at home, possibly syncope
COPD
Hypomagnesemia
Permanent atrial fibrillation
Chronic Xarelto OAC, creat clearance 39 based on creat 1.9 08/06/2024.
s/p [employer] ICD 2015 s/p generator change 12/25/22
CAD
s/p CABG with VERNON to LAD and SVG to L PLB in 2008
cath with balloon angioplasty at VERNON to LAD ostial region in 2014
Type 2 DM
HLD
HTN
BPH
GERD
Ongoing tobacco use
ETOH use disorder, likely moderate to severe
LBBB
ECHO 12/20/19: 25-30%, global hypokinesis with mid anteroseptal, mid anterior, apical akinesis, dyskinesis of inferior apex, MAC, mild to moderate , peak/mean gradients 37/18 mmHg, WES 1.0 cm�, mild TR, PAP 37 mmHg
Echo 06/09/20: EF 25-30%, mild MR, mod peak/mean 30/15 mmHg WES 1.3 cm sq, dilated RV with grossly normal function
Echo 10/25/22: EF 45%, apical and anteroseptal wall akinesis, trace MR, mod to sev with peak/mean 33/19 mmHg and WES 0.8 cm sq
Echo 07/23/2024: EF 35% (visually 30 to 35%, mid to distal anteroseptal and apical akinesis, normal RV size and function, calcified, restricted AV. Peak/mean AV gradients 38/21. WES 1.1 cm�. Visually AV appears more stenotic, question whether there
could be a low flow/low gradient severe . Mild AI I. Mild to moderate TR, PAP 50 to 55 mmHg, mild to moderate MR
Plan:
-Weight is down 5 lbs from admission with Lasix 80 mg IV daily. Patient was ordered Lasix 40 mg IV daily and then 20 mg IV daily earlier this admission and dose has been changing based on renal function.
-Patient was taking Lasix 40 mg PO daily prior to admission
-Nephrology following for CHINEDU on CKD 3b
-EF 35% by echo 07/23/24 and was as high as 45% by echo 10/25/22, but back in 2019 EF was 25%.
-Outpatient dose of Coreg 3.125 mg BID has been continued
-Outpatient dose of Jardiance 10 mg daily has changed to Farxiga 10 mg daily due to formulary changes
-Patient is not chronically on ISAAC/ARB/ARNI/or aldosterone antagonist due to CHINEDU
-Patient has been recommended R/LHC, but was unable to lay flat 07/31/24 so cath deferred. Will reschedule R/LHC for 08/12/24
-Pulm consulted and nebs added. He is also on Decadron 4 mg IV q 8 hours.
-Echo also concerning for symptomatic severe in the setting of significant LV dysfunction/low gradient. R/LHC is part of the planned workup
-Patient with fall prior to admission and when ICD interrogated 08/06/2024 finding no sustained arrhythmias, 100% A-fib, 50% ventricular paced. No arrhythmic etiology to this event
-Patient has persistent Afib. No plans for rhythm control at this point. Outpatient dose of Xarelto 20 mg daily is on hold while patient awaits cath and Heparin gtt ordered
Presented 08/05/2024 with severe shortness of breath and weakness with minimal exertion. Denies weight gain. Wt 180 lbs in cardiology office 07/06/2024. Overall outpatient wt down 24 lbs over past year (wt 204 lbs 05/2023). Reports 20 pound
weight loss in past 6 months. reports significant decline in past 2 to 3 weeks with worsening weakness and has been unable to support him with ambulation. Patient can only walk very short distance such as to bathroom without becoming weak and
having falls. He has had multiple falls in the last few weeks. Complains of dizziness, feeling like he blacks out, leading to fall. Patient reports no alcohol in the past week but previously drinking 2-3 vodka drinks daily.
Progress Note - Underwater Photographer
Subjective
Date of Service: August 11, 2024
He feels less SOB
Objective
Labs:
08/11/24 02:41
08/11/24 02:41
Labs
Hgb 8.2 g/dL (13.0-18.0) L 08/11/24 02:41
Hct 25.1 % (39.0-52.0) L 08/11/24 02:41
Plt Count 181 10^3/uL (130-400) 08/11/24 02:41
APTT 134.8 Sec (23.4-35.0) H 08/11/24 09:36
Sodium 136 mmol/L (135-145) 08/11/24 02:41
Potassium 4.4 mmol/L (3.5-5.1) 08/11/24 02:41
BUN 35 mg/dl (9-20) H 08/11/24 02:41
Creatinine 2.0 mg/dL (0.7-1.3) H 08/11/24 02:41
Glucose 234 mg/dl (70-99) H 08/11/24 02:41
Vital Signs and I&O:
Vital Signs
Temp Pulse Resp BP Pulse Ox
97.7 F 77 20 113/57 91
08/11/24 11:38 08/11/24 11:38 08/11/24 11:38 08/11/24 11:38 08/11/24 11:47
Vital Signs
Temp Pulse Resp BP Pulse Ox
97.7 F 77 20 113/57 91
08/11/24 11:38 08/11/24 11:38 08/11/24 11:38 08/11/24 11:38 08/11/24 11:47
Intake & Output
08/09/24 08/10/24 08/11/24 08/12/24
06:59 06:59 06:59 06:59
Intake Total 1460 / 1460 600 / 600 1320 / 1320
Output Total 680 / 680 850 / 850 2225 / 2225
Balance 780 / 780 -250 / -250 -905 / -905
Physical Exam
Physical Exam
GEN: NAD. AAO x3
HEENT: MMM
LUNGS: 2 L NC. Expiratory wheeze
CV: Afib on tele.
ABD: ND
EXT: No edema B/L
NEURO: Gross non-focal
SKIN: No rash
[2024-08-11 15:06] VITALS: BP 110/56
--- NOTE | 2024-08-11 16:34 | CM ---
Spoke with pt he said she would be agreeable to [facility]
For heart cath tomorrow R and L .
Post cath will need PT OT reorder.
Pt will have to participate in PT OT.
given Pac data already.
PLAN Possible SN[facility].
[2024-08-11 16:38] LABS: Glucose - Point of Care 293 mg/dl (70-99)
[2024-08-11] MEDS: NOVOLOG FLEXPEN-LOW RESISTANCE 3 UNITS SC (16:47)
[2024-08-11] MEDS: MORPHINE SULFATE 0.5 MG IV ×2 (16:55→21:21)
[2024-08-11] MEDS: CRESTOR 40 MG PO (16:56)
[2024-08-11 18:31] LABS: APTT 67.8 Sec (23.4-35.0)
[2024-08-11 19:23] VITALS: BP 118/60
[2024-08-11 21:14] LABS: Glucose - Point of Care 330 mg/dl (70-99)
[2024-08-11] MEDS: LANTUS 0.1 UNITS SC (21:19)
[2024-08-11 23:16] VITALS: BP 114/66
[2024-08-12] VITALS (20 sets, daily range): BP systolic 99–115; BP diastolic 40–101; BMI 24.2
[2024-08-12 00:16] LABS: Glucose - Point of Care 250 mg/dl (70-99)
[2024-08-12] MEDS: ERYTHROMYCIN 0.5% OPHTHALMIC OINTMENT RIGHT EYE ×3 (00:34→07:44)
[2024-08-12 01:22] LABS: APTT 87.5 Sec (23.4-35.0)
[2024-08-12] MEDS: DECADRON 4 MG IV ×2 (03:52→12:25)
[2024-08-12 06:45] LABS: Glucose - Point of Care 225 mg/dl (70-99)
[2024-08-12 07:01] LABS: Hematocrit 25.5 % (39.0-52.0); Hemoglobin 8.1 g/dL (13.0-18.0); Mean Corp Hgb Conc. 31.8 g/dL (33.0-37.0); Mean Corpuscular Volume 100.8 fL (80.0-94.0); Mean Platelet Volume 10.5 fL (7.4-10.4); Platelet Count 194 10^3/uL (130-400); Red Blood Cell Count 2.53 10^6/uL (4.70-6.10); Red Cell Dist. Width 14.5 % (11.5-14.5); White Blood Cell Count 7.2 10^3/uL (4.8-10.8)
[2024-08-12] MEDS: DUONEB INH ×2 (07:08→10:44)
[2024-08-12] MEDS: PULMICORT INH (07:08)
[2024-08-12 07:25] LABS: APTT 85.9 Sec (23.4-35.0)
[2024-08-12] MEDS: ASPIR LOW (ENTERIC COATED) 81 MG PO (07:32)
[2024-08-12] MEDS: MIRALAX PO (07:39)
[2024-08-12] MEDS: VITAMIN E PO (07:40)
[2024-08-12] MEDS: SENOKOT-S PO (07:40)
[2024-08-12] MEDS: NOVOLOG FLEXPEN SC (07:42)
[2024-08-12] MEDS: PRED FORTE 1% EYE DROPS RIGHT EYE (07:43)
[2024-08-12] MEDS: NOVOLOG FLEXPEN-LOW RESISTANCE SC (07:43)
[2024-08-12] MEDS: THERAGRAN PO (07:43)
--- NOTE | 2024-08-12 07:48 | ITS.CL.CATH ---
[facility] - Catheterization
Cardiac Catheterization
Procedure Report:
LEFT AND RIGHT HEART CATHETERIZATION
Date of Procedure: August 12, 2024
Referring: Sunny Culver MD
PROCEDURES:
1. Left catheterization, coronary angiogram and selective graft angiography.
2. Right heart catheterization.
3. Ultrasound-guided access.
4. Dobutamine challenge to rule out concern for true versus pseudo severe aortic stenosis
INDICATION: Mr. Russo is a 74-year-old gentleman with past medical history of hypertension, hyperlipidemia, type 2 diabetes mellitus, COPD, CKD, alcohol abuse, longstanding ischemic cardiomyopathy with EF 40 to 45% about a year ago coming in
this admission with acute on chronic decompensated systolic and diastolic heart failure with repeat echocardiogram showing worsened EF reduced to 25 to 30% who is now being referred for left and right heart catheterization along with aortic valve
evaluation given concern for possible severe aortic stenosis.
ACCESS: 1. Left radial artery, 6 Turkmen sheath, under ultrasound guidance.
2. Right common femoral vein, 6 Turkmen sheath, under ultrasound guidance using a micropuncture kit.
Ultrasound was utilized for vascular access. The radial artery and femoral vein was visualized under ultrasound, and the vessel was patent. An image was stored permanently in the patient's medical record for each. Under direct ultrasound
guidance, a 6 Turkmen sheath was inserted into the artery using a micropuncture kit through a modified Seldinger technique.
RESTING HEMODYNAMICS : (mmHg)
RA (m) : 19
RV (s/d,m) : 65/14, 19
PA (s/d, m) : 71/34, 49
PCWP (m) : 38 with V waves up to 58
PA saturation: 43.9% on 2 L of oxygen via nasal cannula
AO saturation: 94.4% on 2 L of oxygen via nasal cannula
RA saturation: 44.9% on 2 L of oxygen via nasal cannula
Cardiac Output : 4.65 L/min
Cardiac Index : 2.25L/min/m-2
Systemic vascular resistance: 1015 dsc^(-5)
Pulmonary vascular resistance: 2.37 macias unit
AO (s/d) : 124/64
LV (s/d) : 123/17
LVEDP : 33
Mean transaortic gradient of 13.6mmHg
Aortic valve area: 1.48 cm�
DOBUTAMINE CHALLENGE:
DOSE: 5mcg/kg/min
Mean AoV Gradient: 13.5 mmHG
Cardiac Output : 4.12 L/min
Cardiac Index : 1.99 L/min/m-2
PA saturation: 41.9% on 2 L of oxygen via nasal cannula
AO saturation: 95.1% on 2 L of oxygen via nasal cannula
DOSE: 10mcg/kg/min
Mean AoV Gradient: 17.7 mmHG
Cardiac Output : 5.2 L/min
Cardiac Index : 2.5 L/min/m-2
PA saturation: 53.2% on 2 L of oxygen via nasal cannula
AO saturation: 95.1% on 2 L of oxygen via nasal cannula
DOSE: 15mcg/kg/min
Mean AoV Gradient: 20.0 mmHG
Cardiac Output : 6.1 L/min
Cardiac Index : 2.95 L/min/m-2
PA saturation: 58.6% on 2 L of oxygen via nasal cannula
AO saturation: 95.1% on 2 L of oxygen via nasal cannula
DOSE: 20mcg/kg/min
Mean AoV Gradient: 24 mmHG
Cardiac Output : 6.4 L/min
Cardiac Index : 3.09 L/min/m-2
PA saturation: 60.3% on 2 L of oxygen via nasal cannula
AO saturation: 95.1% on 2 L of oxygen via nasal cannula
CORONARY FINDINGS
Dominance: Left
Left Main: Very challenging to selectively engage despite using multiple diagnostic catheter (5 Turkmen JL 4 and 5 Turkmen AL-1 )--there is a 100% ostial left main stenosis with minimal contrast dye passing through antegradely. Heavily calcified
coronary arteries.
LAD: The VERNON to LAD is widely patent. Left to left collaterals noted.
Circumflex: The distal circumflex is large and dominant and fills via patent SVG. Left to left collaterals also noted.
RCA: The RCA could not be selectively seen. It is known to be nondominant and 100% occluded in 2008.
Saphenous Vein Grafts
SVG to distal circumflex: Widely patent.
VERNON to LAD: Widely patent
SEDATION:113 minutes of procedural sedation was utilized. An independent medical doctor was present to assist with and help manage the patient's level of consciousness and physiologic status.
RADIATION SUMMARY: Fluoro Time (min): 19.2, Dose (mGy): 679.94, DAP (Gy.cm2) : 54.09
Closure Device: 1. Vascular band over right radial artery, 10 cc of air.
2. Manual pressure was held over the right common femoral venous access site with successful hemostasis.
CONCLUSIONS
1. Significant [facility] coronary artery disease.
2. Patent bypass grafts.
3. Significantly elevated right left-sided filling pressures with normal cardiac output.
4. Dobutamine challenge did not reveal true severe aortic stenosis.
RECOMMENDATIONS
1. Wean radial band per protocol.
2. 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
3. Aggressive management of cardiovascular risk factors.
4. Strongly emphasized importance of complete alcohol cessation.
5. Eventual referral for outpatient cardiac rehab.
Copy to: Sunny Culver MD and Jamar Moreno MD
Genna Kilgore MD, [facility], [facility]
--- NOTE | 2024-08-12 08:02 | PTCARENOTE ---
Patient given aspirin this morning prior to cardiac cath. All other medications as per microbiological lab technician staff. Patient picked up for procedure. at bedside.
[2024-08-12 08:05] LABS: Blood Urea Nitrogen 44 mg/dl (9-20); Calcium 8.9 mg/dl (8.4-10.2); Carbon Dioxide 27 mmol/L (22-30); Chloride 98 mmol/L (98-107); Estimated Creatinine Clearance 36 ml/min; Glucose 210 mg/dl (70-99); Potassium 4.8 mmol/L (3.5-5.1); Sodium 135 mmol/L (135-145); eGFR 34.16
--- NOTE | 2024-08-12 08:55 | PN.DE.MGMTRT ---
Insulin Management
- -
08/12/2024 Diabetes Management F/U:
Patient admitted 08/05 with weakness, SOB - acute on chronic CHF, recent multiple falls at home. PMH TX, CAD w CABG, CHF, COPD, ANTWAN, CVA, GERD, HTN, HCL, diabetes, CKD3b, aortic stenosis. Prior to admission was taking metformin 1000 mg daily and
Jardiance 10 mg daily. States he has diabetes 20 years, his primary doctor, Dr. Glasgow manages his diabetes. A1C 7, cr 2, eGFR 34.16.
Patient is awake alert and oriented, able to discuss diabetes management.
Patient started on dexamethasone 4 mg Q 8 hours 08/10.
Noted for persistent Hyperglycemia, glucose up to 330 @ HS. Received 10 units Lantus, fasting glucose 210(V) this AM.
08/11 pre meal glucose range 209 to 336. Currently NPO for Cath today
Will increase AC NovoLog to 8 units and hs Lantus to 12 units.
Will cont to follow and make further insulin dose adjustments if necessary.
Discussed with nurse.
Diabetes History
- -
Type of Diabetes: 2 requiring insulin
Pre-Admission Diabetes Regimen
08/12/24
06:46
Creatinine 2.0 H
Lab Results
Hemoglobin A1c 7.0 % (4.0-5.6) H 08/06/24 07:14
Insulin Pump Settings
IP Diabetes Regimen
08/11/24 08/11/24 08/11/24
12:34 16:37 21:13
Glucose
POC Glucose 336 H 293 H 330 H
08/12/24 08/12/24 08/12/24
00:14 06:42 06:46
Glucose 210 H
POC Glucose 250 H 225 H
Meal type: Lunch
Meal type: Breakfast
Amount consumed: 100%
Patient Education
--- NOTE | 2024-08-12 09:06 | W.PN.PUL3 ---
Today's Communication / Plan
-
Cath reviewed, IV diuresis per team
IV steroid transition to PO course given clinical improvement
PFT pending
Can change to inhalers for home use pending PFT results
Eventual home O2 eval
Updated at bedside
Assessment
-
Patient is a 74-year-old male with previous history of COPD, heart failure, hypertension, CVA, ANTWAN not on CPAP presenting to ER for increased shortness of breath and generalized weakness over the past few weeks to months. He was admitted to
on 08/05/2024 and underwent workup for heart failure. Underwent attempted cardiac catheterization on 08/10/2024 but could not proceed due to orthopnea and wheezing. notes that he has become progressively worsening over the past few weeks to
months and over the course of the last few days. He has now been placed on IV steroids, we are consulted for evaluation.
Acute on chronic SOB/wheezing
Orthopnea
Acute decompensated heart failure with reduced EF
Possible AECOPD
Noncompliance
Progressive kidney injury, likely cardiorenal
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
Moderate COPD, last seen 2018
Current smoker
Severe ANTWAN not on CPAP
Daily chronic alcohol use
Plan
Currently saturating 98% on 2L NC
Home O2 evaluation eventually
Prior history of lung disease is noted including--COPD/ANTWAN not on CPAP
Of note, he was seen in our office in [address] Tadeo. He did not return for follow-up. At that time his PFTs indicated moderate obstruction.
He has continued to smoke 1 pack/day. He also has a history of severe obstructive sleep apnea with an AHI of 31, he has not been treated since his diagnosis.
Suspect patient has AECOPD with AECHF but at this point this is difficult to discern
CXR/CT obtained indicating possible edema, new
proBNP is elevated
Agree with IV steroids--transition to PO taper
Suspect lung function is now severely obstructed if PFT from 6 years ago was moderate obstructed
He has not come back for repeat testing and has not taken inhaler therapy
Obtain PFT--in AM
He has history of severe ANTWAN, not on CPAP
He is willing to try PAP, will order--tried for 1 hr and took off
Can leave on PRN
Prior ECHO results are reviewed indicating reduced EF
Cards following
s/p cath 08/12 reviewed with elevated wedge, IV diuresis ongoing
Smoking history noted
Smoking cessation recommended
ETOH use noted, MSAS on
Can stop has not used in 4 days, likely past w/d window
Continue PRN morphine for SOB
Will need outpatient pulmonary evaluation in our office for PFTs and 6MWT
Reviewed with patient and
Diagnostic Data
Chest X-Ray: 08/05/24- No acute cardiopulmonary process.
CXR 08/10/24- Slightly widespread bilateral prominent pulmonary interstitial markings, nonspecific. Some differential diagnostic possibilities include interstitial edema or pneumonitis.
CT Scan: CHEST 02/18/19- Central airways are patent. There is a stable 3 mm calcified granuloma within the left apex. Poorly defined 4 mm nodule within the right middle lobe adjacent to the fissure, which also appears stable (image 35, series 301).
Previously seen isolated 8 mm nodule within the posterior left upper lobe adjacent to the major fissure on the prior CT from 07/07/2015 no longer visualized and appears to have resolved. No new nodules or focal airspace disease. No pleural effusions
or pneumothorax.
Echo: 07/23/24-Normal left ventricular chamber size. Moderate to severely reduced left ventricular systolic function. Left ventricular ejection fraction is 35% by Toribio's Method of Disc (visually 30 to 35%). Mid to distal lucas-septal and
apical akinesis. Mild concentric left ventricular hypertrophy. Normal right ventricular size and function. Calcified, restricted aortic valve. Peak gradient 38mmHg/Mean gradient 21mmHg - using an LVOT of 2.1cm the estimated aortic valve area is
1.1cm2. Visually aortic valve appears more stenotic and I question whether there could be low- flow/low gradient severe aortic valve stenosis. Mild aortic regurgitation. Tricuspid valve opens normally. Mild to moderate tricuspid regurgitation.
Estimated pulmonary artery pressure of 50-55 mmHg assuming a right atrial pressure of 3 mmHg. Mild to moderate mitral regurgitation. Compared to prior study 04/01/2023 aortic valve gradients are lower than noted previously but visually aortic valve
appears severely stenotic. Left ventricular ejection fraction previously noted to be 45 to 50% and now visually 30 to 35%. Pulmonary artery pressure previously 34 mmHg now 50 to 55 mmHg.
[facility] 08/12/24-RA (m) : 19; RV (s/d,m) : 65/14, 19; PA (s/d, m) : 71/34, 49
PCWP (m) : 38 with V waves up to 58
PA saturation: 43.9% on 2 L of oxygen via nasal cannula, AO saturation: 94.4% on 2 L of oxygen via nasal cannula; RA saturation: 44.9% on 2 L of oxygen via nasal cannula
Cardiac Output : 4.65 L/min; Cardiac Index : 2.25L/min/m-2, Systemic vascular resistance: 1015 dsc^(-5), Pulmonary vascular resistance: 2.37 macias unit
PFT's: 01/18/2019: Reviewed demonstrated FEV1/FVC 64%, FEV1 2.41 L to 67%, FVC 3.76 L-77%. TLC 5.77 L-75%, RV 2.23 L 781%, DLCO 10.59-36%. Moderate airflow obstruction. Mild restriction with severe gas to change abnormality.
Spirometry 12/28/2018: FEV1/FVC 66%, FEV1 postbronchodilator 2.16 L-59%, FVC 3.26 L-65%.
Reports and relevant images were personally reviewed.
Total time spent on this encounter __51__ minutes which includes review of history, physical exam, medications, laboratory data, personal review of imaging, extensive review of outpatient records, discussion with care team and respiratory therapy.
Subjective Data
-
Date of Service:
Date of Service: August 12, 2024
Chief Complaint: Pulmonary Follow Up
Subjective:
s/p cath today
Improved today, no issues
No new complaints
Objective Data
Data Reviewed
Vital Signs / I&O / Oxygen:
Vital Signs
Temp Pulse Resp BP Pulse Ox
97.7 F 67 20 103/40 98
08/12/24 06:47 08/12/24 06:47 08/12/24 06:47 08/12/24 06:47 08/12/24 07:15
Intake and Output
08/11/24 08/12/24 08/13/24
06:59 06:59 06:59
Intake Total 1320 / 1320 720 / 720
Output Total 2225 / 2225 1050 / 1050 550 / 550
Balance -905 / -905 -330 / -330 -550 / -550
SaO2 98
Nasal Cannula flow liters per 1
minute
Physical Exam
General: Comfortable and Other (NAD)
HEENT: Normocephalic, Anicteric and Moist Mucous Membranes
Cardiovascular: S1-S2 and Regular Rhythm
Respiratory: Clear and Non-Labored Respirations
GI: Soft, Non Distended and Non Tender
Neurology: Awake, Alert, Oriented and No Motor Deficits
Skin: Warm, Dry and Good Color
Labs/Micro/Reports
Lab Data
08/12/24 06:46
08/12/24 06:46
Laboratory Results
08/11/24 08/11/24 08/12/24
09:36 18:11 00:54
APTT 134.8 H 67.8 H 87.5 H
08/12/24 08/12/24
06:46 12:50
APTT 85.9 H Cancelled
[2024-08-12 11:04] LABS: Glucose - Point of Care 205 mg/dl (70-99)
--- NOTE | 2024-08-12 12:09 | PTCARENOTE ---
Patient received from the geoscience laboratory technician. Left radial radial band intact. Right femoral site soft and dressing dry. Pedal pulses weak, verified with Doppler. Voided 200 cc in the urinal
[2024-08-12] MEDS: KCL 20 MEQ PO (12:33)
[2024-08-12] MEDS: FARXIGA 10 MG PO (12:34)
[2024-08-12] MEDS: CYMBALTA DELAYED RELEASE 60 MG PO (12:34)
[2024-08-12] MEDS: PROTONIX 40 MG PO (12:34)
[2024-08-12] MEDS: LASIX 80 MG IV ×2 (12:35→18:30)
[2024-08-12] MEDS: COREG 3.125 MG PO ×2 (12:39→20:32)
[2024-08-12] MEDS: NOVOLOG FLEXPEN-LOW RESISTANCE 2 UNITS SC (12:55)
[2024-08-12] MEDS: NOVOLOG FLEXPEN 8 UNITS SC ×2 (12:56→17:12)
[2024-08-12] MEDS: PRED FORTE 1% EYE DROPS 1 DROP RIGHT EYE ×3 (12:56→23:03)
[2024-08-12] MEDS: ERYTHROMYCIN 0.5% OPHTHALMIC OINTMENT 1 APPLIC RIGHT EYE ×3 (12:56→20:33)
[2024-08-12] MEDS: LASIX IV (13:00)
--- NOTE | 2024-08-12 13:24 | PTOTSP ---
Patient transferred from 4th floor to IVU s/p cardiac cath, PT orders were not continued upon transfer. Please place updated PT/OT orders to allow resumption of therapy services.
--- NOTE | 2024-08-12 15:01 | W.PN.HOSP.TC ---
Today's Communication/Plan
-
increased diuretic dosing
f/u weight/cr
Assessment / Plan
Assessment / Plan
Acute on chronic systolic CHF
Acute hypoxic respiratory insufficiency
Severe
- s/p TTE 07/23 with concern for low flow/low gradient severe ; mild to moderate MR. Compared to prior study 04/01/2023 aortic valve gradients are lower than noted previously but visually aortic valve appears severely stenotic. Left ventricular
ejection fraction previously noted to be 45 to 50% and now visually 30 to 35%. Pulmonary artery pressure previously 34 mmHg now 50 to 55 mmHg.
- GDMT: continue Coreg, Jardiance
-08/09 Cardiology initially plan to do left/right heart catheterization although with creatinine elevation nephro input has been requested. Patient at risk of COLETTE. Unfortunately without heart catheterization patient at risk of further deterioration
of cardiac issues. Difficult situation.
-08/10 patient unable to tolerate heart catheterization as became orthopneic on table with oxygen saturation going down. Was brought back to medical floor.
-S/p LHC/RHC -showing increased right-sided pressure, normal cardiac index. Dobutamine challenge did not show any significant increase in transvalvular gradient for known .
-Patient started on IV Lasix 80 mg twice daily
COPD flare up
-08/10 CXR increased pulmonary interstitial markings possibility of interstitial edema versus pneumonitis
-IV Decadron has been transition to oral prednisone
-Maintain on duo-neb therapy
-morphine IV 0.5 mg every 4hrs ordered for dyspnea by game protector.
CHINEDU on CKD stage 3b
-Creatinine stable around 2
-weight down, on diuretic therapy.
-bladder scan ordered.
Acute anemia on chronic anemia
- Hbg stable around 8-9 range, continue monitor for bleeding issues.
- anemia indices normal, hemolysis panels negative
CAD s/p CABG
Hx of [place]
HX of ICD 2022
HLD
- continue ASA/Statin/BB
Essential HTN
- continue BP meds
NIDDM
- A1c: 7.0%
-Currently on Lantus/insulin sliding scale
-Expect blood glucose to be uncontrolled with steroids use
-Diabetic HEAD OF HISTORY help requested.
permanent Atrial Fibrillation
- continue Coreg
- on heparin drip currently, xarelto on hold.
Hx Alcohol Abuse
Unstable Gait
- B12 normal, Folate normal, B1 pending
- msas discontinued
Scab on right 5th lateral toe suspected pressure injury, POA
-continue wound care
Chronic T12 compression deformity with possible superimposed acute/subacute component
Partially healed minimally displaced fractures involving the posterior left 9th through 12th ribs
hx of CVA - continue ASA/Statin
GERD - continue PPI
DVT ppx: heparin drip
Code: DNR/DNI
08/10 Patient visibly upset and being verbally argumentative. Blaming for ' lack of co-ordination ' and ' lack of any actions '. Unable to reason with spouse that patient kidney function needed to be stabilized before attempt at heart cath.
Same reason diuretics needed to be held , this unfortunately did cause orthopnea today and resulting aborting heart cath. Unfortunately providing empiric diuretics without further definitive volume assessment would have caused renal failure as well
and thus would have excluded as a candidate of heart cath. There is no good answer and unfortunately spouse not in a state of understanding any of this.
Of note spouse clenching teeth and making fist/shaking and at time reported inappropriate threatening behavior to medical staff.
Anticipated Discharge: > 48 hours
Subjective/Interval History
-
Date of Service: August 12, 2024
No acute events reported overnight
Objective Data
-
Labs:
Laboratory Results
08/12/24
06:46
WBC 7.2
Hgb 8.1 L
Hct 25.5 L
Plt Count 194
APTT 85.9 H
Sodium 135
Potassium 4.8
Chloride 98
Carbon Dioxide 27
BUN 44 H
Creatinine 2.0 H
Glucose 210 H
Calcium 8.9
Vital Signs:
Vital Signs
Temp Pulse Resp BP Pulse Ox
97.7 F 69 17 106/61 98
08/12/24 06:47 08/12/24 14:30 08/12/24 11:23 08/12/24 14:00 08/12/24 13:30
I&O
08/11/24 08/12/24 08/13/24
06:59 06:59 06:59
Intake Total 1320 / 1320 720 / 720 960 / 960
Output Total 2225 / 2225 1050 / 1050 1450 / 1450
Balance -905 / -905 -330 / -330 -490 / -490
Review of Systems
-
Respiratory: Reports No Symptoms
Cardiac: Reports No Symptoms
Abdomen/GI: Reports No Symptoms
Physical Exam
-
General: Negative Respiratory Distress
HEENT: Oxygen
Neuro: Awake, Alert and Oriented
--- NOTE | 2024-08-12 15:25 | CM ---
Reviewed chart. Mr. Russo was transferred to IVU. Met with Mr. Russo to review discharge plans. He states prior to admission he resides with his spouse in a two sto ry home with one step to enter. He states he has a full flight of steps
to get to bedroom/full bathroom. He states he has a stair glide. He states he has a powder room on the first floor. He states his recliner is very close to the powder room. He states prior to admission he ambulates with a single point cane. He
states he has a stair glide, single point cane and walker at home. He states he prefers to use the single point cane. He states he has a prescription plan and uses [facility]. He states he has had [facility] in the past. He states he
went to [facility] in the past and did outpatient rehab in the [facility] [place]. Will need to see his current functional level to see if he willhave any skilled care needs. Medical work-up in progress. The discharge plan is to return home with his
spouse and [facility] verses SNF/Rehab. if indicated when medically stable.
[2024-08-12] MEDS: DUONEB 3 ML INH ×2 (16:07→19:17)
[2024-08-12] MEDS: CRESTOR 40 MG PO (17:06)
[2024-08-12] MEDS: XARELTO 15 MG PO (17:06)
[2024-08-12 17:11] LABS: Glucose - Point of Care 360 mg/dl (70-99)
[2024-08-12] MEDS: NOVOLOG FLEXPEN-LOW RESISTANCE 5 UNITS SC (17:12)
[2024-08-12] MEDS: MORPHINE SULFATE 0.5 MG IV ×2 (18:27→23:03)
[2024-08-12] MEDS: PULMICORT 0.5 MG INH (19:17)
[2024-08-12] MEDS: SENOKOT-S 1 TABLET PO (20:32)
[2024-08-12] MEDS: LANTUS 0.12 UNITS SC (20:33)
[2024-08-12 20:35] LABS: Glucose - Point of Care 247 mg/dl (70-99)
--- NOTE | 2024-08-12 20:55 | PTCARENOTE ---
Received patient at change of shift. Patient sitting in bed, awake and oriented x3. Right groin site clean, dry, and intact-- soft, no hematoma, no ecchymosis. Left radial site clean, dry, and intact-- soft, no hematoma, little ecchymosis. BP
115/101, A-Fib 70s, 100% on 2L NC-- respiratory decreased O2 to 1L. Discussed plan of care. Patient verbalized understanding. Call saini within reach.
[2024-08-13] VITALS (11 sets, daily range): BP systolic 91–113; BP diastolic 45–76; PULSE 73; O2SAT 97; BMI 23.6
[2024-08-13] MEDS: ERYTHROMYCIN 0.5% OPHTHALMIC OINTMENT RIGHT EYE ×2 (00:17→05:03)
--- NOTE | 2024-08-13 05:43 | PTCARENOTE ---
Pt no longer on O2 NC-- stating 99% on room air. No complaints of SOB or discomfort.
[2024-08-13 06:05] LABS: Hematocrit 27.1 % (39.0-52.0); Hemoglobin 9.1 g/dL (13.0-18.0); Mean Corp Hgb Conc. 33.6 g/dL (33.0-37.0); Mean Corpuscular Hgb 32.9 pg (27.0-31.0); Mean Corpuscular Volume 97.8 fL (80.0-94.0); Mean Platelet Volume 10.7 fL (7.4-10.4); Platelet Count 222 10^3/uL (130-400); Red Blood Cell Count 2.77 10^6/uL (4.70-6.10); White Blood Cell Count 8.7 10^3/uL (4.8-10.8)
[2024-08-13 06:31] LABS: Blood Urea Nitrogen 53 mg/dl (9-20); Carbon Dioxide 29 mmol/L (22-30); Chloride 94 mmol/L (98-107); Estimated Creatinine Clearance 36 ml/min; Glucose 167 mg/dl (70-99); Potassium 3.9 mmol/L (3.5-5.1); Sodium 135 mmol/L (135-145); eGFR 34.16
[2024-08-13] MEDS: DUONEB 3 ML INH ×2 (07:27→11:13)
[2024-08-13] MEDS: PULMICORT 0.5 MG INH (07:27)
--- NOTE | 2024-08-13 07:47 | PN.DE.MGMTRT ---
Insulin Management
- -
08/13/2024: Diabetes Management F/U:
Patient admitted 08/05 with weakness, SOB - acute on chronic CHF, recent multiple falls at home. PMH IL, CAD w CABG, CHF, COPD, ANTWAN, CVA, GERD, HTN, HCL, diabetes, CKD3b, aortic stenosis. Prior to admission was taking metformin 1000 mg daily and
Jardiance 10 mg daily. States he has diabetes 20 years, his primary doctor, Dr. Glasgow manages his diabetes. A1C 7, cr 2, eGFR 34.16.
Patient is awake alert and oriented, able to discuss diabetes management.
Remains on steroids, transitioned off IV to Prednisone PO, contributing to persistent Hyperglycemia, glucose up to 360 @ dinner and 247 @ HS.
Received 12 units Lantus, fasting glucose 167(V) this AM.
08/12 pre meal glucose range 205 to 360. Will increase AC NovoLog to 10 units and HS Lantus to 14 units.
Cont Farxiga 10mg daily. Modify diet to 2000 patricia diet. Will cont to follow and make further insulin dose adjustments if necessary.
Discussed with nurse.
Diabetes History
- -
Type of Diabetes: 2 requiring insulin
Pre-Admission Diabetes Regimen
08/12/24 08/13/24
06:46 05:30
Creatinine 2.0 H 2.0 H
Lab Results
Hemoglobin A1c 7.0 % (4.0-5.6) H 08/06/24 07:14
Insulin Pump Settings
IP Diabetes Regimen
08/12/24 08/12/24 08/12/24
06:46 10:53 17:10
Glucose 210 H
POC Glucose 205 H 360 H
08/12/24 08/13/24
20:31 05:30
Glucose 167 H
POC Glucose 247 H
Meal type: Dinner
Meal type: Lunch
Amount consumed: 100%
Amount consumed: 100%
Patient Education
--- NOTE | 2024-08-13 09:34 | W.PN.PUL3 ---
Today's Communication / Plan
-
PFT today reviewed, severe obstruction, will add on inhalers to continue at home
Prednisone taper continued
IV diuresis per team
He is stable on RA, satting 98%
Eval for d/c pending cards management
Arrange OP FU
No further recs, we will sign off at this time--pls call with questions
Assessment
-
Patient is a 74-year-old male with previous history of COPD, heart failure, hypertension, CVA, ANTWAN not on CPAP presenting to ER for increased shortness of breath and generalized weakness over the past few weeks to months. He was admitted to
on 08/05/2024 and underwent workup for heart failure. Underwent attempted cardiac catheterization on 08/10/2024 but could not proceed due to orthopnea and wheezing. notes that he has become progressively worsening over the past few weeks to
months and over the course of the last few days. He has now been placed on IV steroids, we are consulted for evaluation.
Acute on chronic SOB/wheezing
Orthopnea
Acute decompensated heart failure with reduced EF
Possible AECOPD
Noncompliance
Progressive kidney injury, likely cardiorenal
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
Severe COPD, last seen 2019, FEV1 47% post testing
Current smoker
Severe ANTWAN not on CPAP
Daily chronic alcohol use
Plan
Currently saturating 98% on RA
Prior history of lung disease is noted including--COPD/ANTWAN not on CPAP
Of note, he was seen in our office in [address] Tadeo. He did not return for follow-up. At that time his PFTs indicated moderate obstruction.
He has continued to smoke 1 pack/day. He also has a history of severe obstructive sleep apnea with an AHI of 31, he has not been treated since his diagnosis.
Suspect patient has AECOPD with AECHF
CXR/CT obtained indicating possible edema, new
proBNP is elevated
Agree with IV steroids--transitioned to PO taper
Suspect lung function is now severely obstructed if PFT from 6 years ago was moderate obstructed
He has not come back for repeat testing and has not taken inhaler therapy
Obtain PFT today--reviewed, confirmed severe COPD/FEV1 47% (post testing)
Will add on spiriva/symbicort to continue at home
He has history of severe ANTWAN, not on CPAP
He is willing to try PAP, will order--tried for 1 hr and took off
Can leave on PRN
Prior ECHO results are reviewed indicating reduced EF
Cards following
s/p cath 08/12 reviewed with elevated wedge, IV diuresis ongoing
Smoking history noted
Smoking cessation recommended
ETOH use noted, MSAS on
Can stop has not used in 4 days, likely past w/d window
Continue PRN morphine for SOB
Will need outpatient pulmonary evaluation in our office for PFTs and 6MWT
Reviewed with patient and
Diagnostic Data
Chest X-Ray: 08/05/24- No acute cardiopulmonary process.
CXR 08/10/24- Slightly widespread bilateral prominent pulmonary interstitial markings, nonspecific. Some differential diagnostic possibilities include interstitial edema or pneumonitis.
CT Scan: CHEST 02/18/19- Central airways are patent. There is a stable 3 mm calcified granuloma within the left apex. Poorly defined 4 mm nodule within the right middle lobe adjacent to the fissure, which also appears stable (image 35, series 301).
Previously seen isolated 8 mm nodule within the posterior left upper lobe adjacent to the major fissure on the prior CT from 07/07/2015 no longer visualized and appears to have resolved. No new nodules or focal airspace disease. No pleural effusions
or pneumothorax.
Echo: 07/23/24-Normal left ventricular chamber size. Moderate to severely reduced left ventricular systolic function. Left ventricular ejection fraction is 35% by Toribio's Method of Disc (visually 30 to 35%). Mid to distal lucas-septal and
apical akinesis. Mild concentric left ventricular hypertrophy. Normal right ventricular size and function. Calcified, restricted aortic valve. Peak gradient 38mmHg/Mean gradient 21mmHg - using an LVOT of 2.1cm the estimated aortic valve area is
1.1cm2. Visually aortic valve appears more stenotic and I question whether there could be low- flow/low gradient severe aortic valve stenosis. Mild aortic regurgitation. Tricuspid valve opens normally. Mild to moderate tricuspid regurgitation.
Estimated pulmonary artery pressure of 50-55 mmHg assuming a right atrial pressure of 3 mmHg. Mild to moderate mitral regurgitation. Compared to prior study 04/01/2023 aortic valve gradients are lower than noted previously but visually aortic valve
appears severely stenotic. Left ventricular ejection fraction previously noted to be 45 to 50% and now visually 30 to 35%. Pulmonary artery pressure previously 34 mmHg now 50 to 55 mmHg.
[facility] 08/12/24-RA (m) : 19; RV (s/d,m) : 65/14, 19; PA (s/d, m) : 71/34, 49
PCWP (m) : 38 with V waves up to 58
PA saturation: 43.9% on 2 L of oxygen via nasal cannula, AO saturation: 94.4% on 2 L of oxygen via nasal cannula; RA saturation: 44.9% on 2 L of oxygen via nasal cannula
Cardiac Output : 4.65 L/min; Cardiac Index : 2.25L/min/m-2, Systemic vascular resistance: 1015 dsc^(-5), Pulmonary vascular resistance: 2.37 macias unit
PFT's: 01/18/2019: Reviewed demonstrated FEV1/FVC 64%, FEV1 2.41 L to 67%, FVC 3.76 L-77%. TLC 5.77 L-75%, RV 2.23 L 781%, DLCO 10.59-36%. Moderate airflow obstruction. Mild restriction with severe gas to change abnormality.
Spirometry 12/28/2018: FEV1/FVC 66%, FEV1 postbronchodilator 2.16 L-59%, FVC 3.26 L-65%.
Reports and relevant images were personally reviewed.
Total time spent on this encounter __51__ minutes which includes review of history, physical exam, medications, laboratory data, personal review of imaging, extensive review of outpatient records, discussion with care team and respiratory therapy.
Subjective Data
-
Date of Service:
Date of Service: August 13, 2024
Chief Complaint: Pulmonary Follow Up
Subjective:
No acute events ON, remains stable
Sitting in chair, feels good
Objective Data
Data Reviewed
Vital Signs / I&O / Oxygen:
Vital Signs
Temp Pulse Resp BP Pulse Ox
97.6 F 84 18 112/57 98
08/13/24 05:07 08/13/24 07:28 08/13/24 07:47 08/13/24 05:07 08/13/24 07:47
Intake and Output
08/12/24 08/13/24 08/14/24
06:59 06:59 06:59
Intake Total 720 / 720 1200 / 1200
Output Total 1050 / 1050 4775 / 4775
Balance -330 / -330 -3575 / -3575
SaO2 98
Nasal Cannula flow liters per 2
minute
Physical Exam
General: Comfortable and Other (NAD)
HEENT: Normocephalic, Anicteric and Moist Mucous Membranes
Cardiovascular: S1-S2 and Regular Rhythm
Respiratory: Clear and Non-Labored Respirations
GI: Soft, Non Distended and Non Tender
Neurology: Awake, Alert, Oriented and No Motor Deficits
Skin: Warm, Dry and Good Color
Labs/Micro/Reports
Lab Data
08/13/24 05:30
08/13/24 05:30
[2024-08-13] MEDS: MIRALAX 17 GRAMS PO (09:47)
[2024-08-13] MEDS: FARXIGA 10 MG PO (09:47)
[2024-08-13] MEDS: PROTONIX 40 MG PO (09:47)
[2024-08-13] MEDS: CYMBALTA DELAYED RELEASE 60 MG PO (09:47)
[2024-08-13] MEDS: VITAMIN E 400 UNITS PO (09:47)
[2024-08-13] MEDS: KCL 20 MEQ PO ×2 (09:47→11:37)
[2024-08-13] MEDS: DELTASONE 50 MG PO (09:48)
[2024-08-13] MEDS: THERAGRAN 1 TABLET PO (09:48)
[2024-08-13] MEDS: COREG 3.125 MG PO ×2 (09:48→21:08)
[2024-08-13] MEDS: SENOKOT-S 1 TABLET PO ×2 (09:48→21:08)
[2024-08-13] MEDS: ASPIR LOW (ENTERIC COATED) 81 MG PO (09:48)
[2024-08-13] MEDS: LASIX 80 MG IV ×2 (09:49→17:03)
[2024-08-13] MEDS: PRED FORTE 1% EYE DROPS 1 DROP RIGHT EYE ×4 (09:49→21:08)
[2024-08-13] MEDS: ERYTHROMYCIN 0.5% OPHTHALMIC OINTMENT 1 APPLIC RIGHT EYE ×4 (09:49→21:08)
[2024-08-13] MEDS: NOVOLOG FLEXPEN SC (09:50)
--- NOTE | 2024-08-13 09:57 | W.PN.NEPH.PH ---
Today's Communication / Plan
-
diurese
Assessment/Plan
-
Assessment
CHINEDU
CKD3b
Heart failure reduced ejection fraction decompensated wedge 38
Severe aortic stenosis-not severe on recent LHC/RHC/dobutamine challenge
Moderate MR/TR
Smoking, alcohol use
Coronary artery disease with bypass
diabetes mellitus type 2
A-fib pacer
Hypertension
Plan
continue IV lasix
goal another 5-7# diuresis, then can consider po lasix
follow BMP
-
-
Date of Service: August 13, 2024
CC / HPI / ROS
-
Chief Complaint:
CHINEDU
History of Present Illness:
CHINEDU/Cr stable 2.0
K stable
BP stable
diuresed well with IV lasix for decompensated HF
Review of Systems:
no CP/SOB
Labs
-
Labs:
WBC 8.7 10^3/uL (4.8-10.8) 08/13/24 05:30
RBC 2.77 10^6/uL (4.70-6.10) L 08/13/24 05:30
Hgb 9.1 g/dL (13.0-18.0) L 08/13/24 05:30
Hct 27.1 % (39.0-52.0) L 08/13/24 05:30
Plt Count 222 10^3/uL (130-400) 08/13/24 05:30
Sodium 135 mmol/L (135-145) 08/13/24 05:30
Potassium 3.9 mmol/L (3.5-5.1) 08/13/24 05:30
Chloride 94 mmol/L (98-107) L 08/13/24 05:30
Carbon Dioxide 29 mmol/L (22-30) 08/13/24 05:30
BUN 53 mg/dl (9-20) H 08/13/24 05:30
Creatinine 2.0 mg/dL (0.7-1.3) H 08/13/24 05:30
eGFR 34.16 08/13/24 05:30
Glucose 167 mg/dl (70-99) H 08/13/24 05:30
Calcium 9.0 mg/dl (8.4-10.2) 08/13/24 05:30
Phosphorus 2.9 mg/dl (2.5-4.5) 08/07/24 04:54
[id number] Pept 4590 pg/ml 08/05/24 16:37
Albumin 3.9 g/dl (3.5-5.0) 08/05/24 17:04
Physical Exam
-
Vital Signs:
Vital Signs
Temp Pulse Resp BP Pulse Ox
97.6 F 84 18 112/57 98
08/13/24 05:07 08/13/24 07:28 08/13/24 07:47 08/13/24 05:07 08/13/24 07:47
Cardiovascular:: Regular rate and rhythm
Respiratory:: Bilateral: Coarse
Lung Excursion:: Normal
Abdomen:: Nontender and Soft
Bowel Sounds:: Normal
Extremity Edema:: +1: Bilateral:
[2024-08-13] MEDS: NOVOLOG FLEXPEN-LOW RESISTANCE 1 UNITS SC (09:58)
--- NOTE | 2024-08-13 09:58 | W.PN.CARDCBS ---
Addendum entered and electronically signed by Jamar Moreno MD 08/13/24 10:57:
Attending addendum:
-Will add lisinopril 2.5 mg once daily
-May consider increasing Coreg to 6.25 mg bid depending on blood pressure
Addendum entered and electronically signed by Jamar Moreno MD 08/13/24 10:54:
Attending addendum: Patient seen and examined. I reviewed catheterization results:
-08/12/2024: Cath: RA: 19, RV: 65/14, 19, PA: 71/34, 49, PCWP: 38 w V-waves 58 mmHg, CO/CI: 4.65 / 2.25, SVR: 1015, PVR: 2.7 Wood unit. Baseline AV mean : 13.6 mmHg and WES 1.48 cm2
5mcg/kg/min: Mean grad: 13.5 mmhg CO/CI: 4.12/1.99
10mcg/kg/min: Mean: 17.7, CO/CI: 5.2/2.5,
15 mcg/kg/min: Mean: 20 mmHg, CO/CI: 6.1/2.95
20 mcg/kg/min: Mean: 24 mmHg, CO/CI: 6.4/3.1
.
Cors: LM: 100%, RCA: Nondominant and 100%, SVG-distal LCX: Widely patent, VERNON-LAD: Widely patent
-He is feeling better and was able to sleep last night without O2
-Discussed with Dr. Carrillo: He remains volume overloaded with PCWP close to 40 mmHg. He probably has another 7 pounds of volume for diuresis
-Renal function has been okay
-We are somewhat limited by HF med titration based on Cr. Will discuss with Dr. Carrillo
Original Note:
Today's Communication / Plan
-
-cont IV diuresis with goal diuresis 5-7lbs more before transition to oral diuretics
Impression / Plan
-
Primary Care Provider: Dr. Glasgow
Primary Refrigeration Systems Installer: Dr. Moreno
Assessment:
presented with respiratory distress with diffuse wheezing bilaterally, hypoxia, and O2 Sats 85%
Acute on chronic HFrEF, NYHA class 3-4
Low flow low gradient / Moderate to severe with peak/mean gradients 38/21, WES 1.1 cm�. low-flow/low gradient severe , mild AI, echo 07/23/2024
CM w/ variable EF, most recent echo 07/23/2024 w/ decline in EF 30-35%
Right/left heart cath 08/12/2024: Significantly elevated right and left-sided filling pressures, normal cardiac output, significant pala CAD, patent bypass grafts, dobutamine challenge did not reveal true severe
CHINEDU on CKD 3b
Fall at home, possibly syncope
COPD
Hypomagnesemia
Permanent atrial fibrillation
Chronic Xarelto OAC, creat clearance 39 based on creat 1.9 08/06/2024. Creat clearance 36.6 based on creat 2.0 08/13/2024
s/p Medtronic ICD 2014 s/p generator change 12/25/22
CAD
s/p CABG with VERNON to LAD and SVG to L PLB in 2008
cath with balloon angioplasty at VERNON to LAD ostial region in 2014
Type 2 DM
HLD
HTN
BPH
GERD
Ongoing tobacco use
ETOH use disorder, likely moderate to severe
LBBB
ECHO 12/20/19: 25-30%, global hypokinesis with mid anteroseptal, mid anterior, apical akinesis, dyskinesis of inferior apex, MAC, mild to moderate , peak/mean gradients 37/18 mmHg, WES 1.0 cm�, mild TR, PAP 37 mmHg
Echo 06/09/20: EF 25-30%, mild MR, mod peak/mean 30/15 mmHg WES 1.3 cm sq, dilated RV with grossly normal function
Echo 10/25/22: EF 45%, apical and anteroseptal wall akinesis, trace MR, mod to sev with peak/mean 33/19 mmHg and WES 0.8 cm sq
Echo 07/23/2024: EF 35% (visually 30 to 35%, mid to distal anteroseptal and apical akinesis, normal RV size and function, calcified, restricted AV. Peak/mean AV gradients 38/21. WES 1.1 cm�. Visually AV appears more stenotic, question whether there
could be a low flow/low gradient severe . Mild AI I. Mild to moderate TR, PAP 50 to 55 mmHg, mild to moderate MR
RHC/[facility] 08/12/2024: RA 19, PA 71/34, PCWP 38 with V waves to 58. CO/CI 4.65/2.25.
Significant pala CAD, patent bypass grafts including SVG--distal circumflex and VERNON--LAD.
Dobutamine challenge did not reveal true severe aortic stenosis
Plan:
-RHC/C 08/13/2024 showed significant elevated R/L heart filling pressures - continue IV diuresis
-Weight is down 4 lbs overnight, and 9 lbs from admission. Lasix increased to 80 mg IV BID after cath yest. Lasix dose has varied during this admission based on changing renal function.
-appreciate nephrology input - goal wt down another 5-7 lbs, then transition to oral Lasix.
-Patient was taking Lasix 40 mg PO daily prior to admission
-telemetry personally reviewed: Vpaced, freq PVCs with couplets, triplets
-K 3.9 -on KCl 20 meq daily. Will give extra 20 meq today
-Nephrology following for CHINEDU on CKD 3b
-creat in stable range 2.0 during hospitalization (prior to admission 1.7-1.9)
-EF 35% by echo 07/23/24 and was as high as 45% by echo 10/25/22, but back in 2019 EF was 25%.
-Outpatient dose of Coreg 3.125 mg BID has been continued
-Outpatient dose of Jardiance 10 mg daily has changed to Farxiga 10 mg daily due to formulary changes
-Patient is not chronically on ISAAC/ARB/ARNI/or aldosterone antagonist due to CHINEDU
-Pulm consulted and nebs added. Was on IV Decadron but now transitioning to oral steroids
-Echo concerning for symptomatic severe in the setting of significant LV dysfunction/low gradient. R/C w/ Dobutamine challenge -did not reveal true severe
-Patient with fall prior to admission and when ICD interrogated 08/06/2024 finding no sustained arrhythmias, 100% A-fib, 50% ventricular paced. No arrhythmic etiology to this event
-Patient has persistent Afib. No plans for rhythm control at this point. Outpatient dose of Xarelto 15 mg resumed following cath 08/12/2024 (creat clearance 26.6)
Presented 08/05/2024 with severe shortness of breath and weakness with minimal exertion. Denies weight gain. Wt 180 lbs in cardiology office 07/06/2024. Overall outpatient wt down 24 lbs over past year (wt 204 lbs 05/2023). Reports 20 pound
weight loss in past 6 months. reports significant decline in past 2 to 3 weeks with worsening weakness and has been unable to support him with ambulation. Patient can only walk very short distance such as to bathroom without becoming weak and
having falls. He has had multiple falls in the last few weeks. Complains of dizziness, feeling like he blacks out, leading to fall. Patient reports no alcohol in the past week but previously drinking 2-3 vodka drinks daily.
Progress Note - Refrigeration Systems Installer
Subjective
Date of Service: August 13, 2024
s/p RHC/LHC 08/12/2024: severe pala vessel CAD, patent bypass grafts, elevated R/L filling pressures, nl CO
-Lasix increased to 80 mg IV BID
-pt feels well, denies SOB, edema, PND, orthopnea
-off O2
Objective
Labs:
08/13/24 05:30
08/13/24 05:30
Labs
Hgb 9.1 g/dL (13.0-18.0) L 08/13/24 05:30
Hct 27.1 % (39.0-52.0) L 08/13/24 05:30
Plt Count 222 10^3/uL (130-400) 08/13/24 05:30
APTT Cancelled 08/12/24 12:50
Sodium 135 mmol/L (135-145) 08/13/24 05:30
Potassium 3.9 mmol/L (3.5-5.1) 08/13/24 05:30
BUN 53 mg/dl (9-20) H 08/13/24 05:30
Creatinine 2.0 mg/dL (0.7-1.3) H 08/13/24 05:30
Glucose 167 mg/dl (70-99) H 08/13/24 05:30
Vital Signs and I&O:
Vital Signs
Temp Pulse Resp BP Pulse Ox
97.6 F 79 18 113/76 98
08/13/24 05:07 08/13/24 09:49 08/13/24 07:47 08/13/24 09:49 08/13/24 07:47
Vital Signs
Temp Pulse Resp BP Pulse Ox
97.6 F 79 18 113/76 98
08/13/24 05:07 08/13/24 09:49 08/13/24 07:47 08/13/24 09:49 08/13/24 07:47
Intake & Output
08/11/24 08/12/24 08/13/24 08/14/24
06:59 06:59 06:59 06:59
Intake Total 1320 / 1320 720 / 720 1200 / 1200
Output Total 2225 / 2225 1050 / 1050 4775 / 4775
Balance -905 / -905 -330 / -330 -3575 / -3575
Physical Exam
Physical Exam
GEN: No distress, awake, Ox3
HEENT: supple, anicteric, mmm
LUNGS: CTA, no wheezes/rales
CV: irreg, irreg S1/S2, 2/6 JAGDISH
ABD: soft, BS+, NT/ND
EXT: No edema
NEURO: Gross non-focal
SKIN: No rash
[2024-08-13] MEDS: ZESTRIL 2.5 MG PO (11:37)
[2024-08-13 11:41] LABS: Glucose - Point of Care 342 mg/dl (70-99)
[2024-08-13] MEDS: NOVOLOG FLEXPEN-LOW RESISTANCE 4 UNITS SC (13:02)
[2024-08-13] MEDS: NOVOLOG FLEXPEN 10 UNITS SC ×2 (13:02→18:43)
--- NOTE | 2024-08-13 15:42 | CM ---
pt does not want to go to rehab, pt recomm home vs rehab. pt not medically stable for dc today.
--- NOTE | 2024-08-13 15:47 | W.PN.HOSP.TC ---
Today's Communication/Plan
-
f/u weight/cr
cardio/nephro managing diuresis
Assessment / Plan
Assessment / Plan
Acute on chronic systolic CHF
Acute hypoxic respiratory insufficiency - Improved
Severe
- s/p TTE 07/23 with concern for low flow/low gradient severe ; mild to moderate MR. Compared to prior study 04/01/2023 aortic valve gradients are lower than noted previously but visually aortic valve appears severely stenotic. Left ventricular
ejection fraction previously noted to be 45 to 50% and now visually 30 to 35%. Pulmonary artery pressure previously 34 mmHg now 50 to 55 mmHg.
- GDMT: continue Coreg, Jardiance
-08/09 Cardiology initially plan to do left/right heart catheterization although with creatinine elevation nephro input has been requested. Patient at risk of COLETTE. Unfortunately without heart catheterization patient at risk of further deterioration
of cardiac issues. Difficult situation.
-08/10 patient unable to tolerate heart catheterization as became orthopneic on table with oxygen saturation going down. Was brought back to medical floor.
-S/p LHC/RHC -showing increased right-sided pressure, normal cardiac index. Dobutamine challenge did not show any significant increase in transvalvular gradient for known .
-Patient started on IV Lasix 80 mg twice daily
COPD flare up
-08/10 CXR increased pulmonary interstitial markings possibility of interstitial edema versus pneumonitis
-IV Decadron has been transition to oral prednisone
-Maintain on duo-neb therapy
-morphine IV 0.5 mg every 4hrs ordered for dyspnea by quarter doper.
CHINEDU on CKD stage 3b
-Creatinine stable around 2
-weight down, on diuretic therapy.
-bladder scan ordered.
Acute anemia on chronic anemia
- Hbg stable around 8-9 range, continue monitor for bleeding issues.
- anemia indices normal, hemolysis panels negative
CAD s/p CABG
Hx of UT
HX of ICD 2022
HLD
- continue ASA/Statin/BB
Essential HTN
- continue BP meds
NIDDM
- A1c: 7.0%
-Currently on Lantus/insulin sliding scale
-Expect blood glucose to be uncontrolled with steroids use
-Diabetic HEADING SAW OPERATOR help requested.
permanent Atrial Fibrillation
- continue Coreg
- restarted on xarelto
Hx Alcohol Abuse
Unstable Gait
- B12 normal, Folate normal, B1 pending
- msas discontinued
Scab on right 5th lateral toe suspected pressure injury, POA
-continue wound care
Chronic T12 compression deformity with possible superimposed acute/subacute component
Partially healed minimally displaced fractures involving the posterior left 9th through 12th ribs
hx of CVA - continue ASA/Statin
GERD - continue PPI
DVT ppx: xarelto
Code: DNR/DNI
08/10 Patient visibly upset and being verbally argumentative. Blaming for ' lack of co-ordination ' and ' lack of any actions '. Unable to reason with spouse that patient kidney function needed to be stabilized before attempt at heart cath.
Same reason diuretics needed to be held , this unfortunately did cause orthopnea today and resulting aborting heart cath. Unfortunately providing empiric diuretics without further definitive volume assessment would have caused renal failure as well
and thus would have excluded as a candidate of heart cath. There is no good answer and unfortunately spouse not in a state of understanding any of this.
Of note spouse clenching teeth and making fist/shaking and at time reported inappropriate threatening behavior to medical staff.
Anticipated Discharge: > 48 hours
Subjective/Interval History
-
Date of Service: August 13, 2024
Denies of any dyspnea
Off of oxygen
No acute issues reported overnight
Objective Data
-
Labs:
Laboratory Results
08/13/24
05:30
WBC 8.7
Hgb 9.1 L
Hct 27.1 L
Plt Count 222
Sodium 135
Potassium 3.9
Chloride 94 L
Carbon Dioxide 29
BUN 53 H
Creatinine 2.0 H
Glucose 167 H
Calcium 9.0
Vital Signs:
Vital Signs
Temp Pulse Resp BP Pulse Ox
97.6 F 65 18 113/66 97
08/13/24 11:41 08/13/24 14:00 08/13/24 11:41 08/13/24 11:37 08/13/24 11:41
I&O
08/12/24 08/13/24 08/14/24
06:59 06:59 06:59
Intake Total 720 / 720 1200 / 1680 480 / 480
Output Total 1050 / 1050 4775 / 4775 375 / 375
Balance -330 / -330 -3575 / -3095 105 / 105
Review of Systems
-
Respiratory: Reports No Symptoms
Cardiac: Reports No Symptoms
Abdomen/GI: Reports No Symptoms
Physical Exam
-
General: Negative Respiratory Distress
HEENT: Oxygen
Respiratory: Clear to Auscultation
Cardiac: Regular Rhythm and S1/S2; Negative Murmur
GI: Soft, Nontender and Nondistended
Musculoskeletal: Edema, Right Lower Extrem and Edema, Left Lower Extrem
Neuro: Awake, Alert and Oriented
[2024-08-13] MEDS: CRESTOR 40 MG PO (17:04)
[2024-08-13] MEDS: XARELTO 15 MG PO (17:04)
[2024-08-13 17:09] LABS: Glucose - Point of Care 410 mg/dl (70-99)
[2024-08-13 17:52] LABS: Glucose 352 mg/dl (70-99)
[2024-08-13] MEDS: NOVOLOG FLEXPEN-LOW RESISTANCE 5 UNITS SC (18:44)
--- NOTE | 2024-08-13 19:18 | PTCARENOTE ---
pt continues to be paced on the monitor, occasional PVCs, hr in the 60s, vss. pt offers no complaints at this time. pt educated on plan of care and verbalized understanding.
at bedside loudly verbalizing her frustration of 'no communication between doctors and herself.' pts was adamant about speaking w/ a doctor, dr. ricks at bedside to calm .
[2024-08-13] MEDS: SYMBICORT 160/4.5 MCG INHALER 2 PUFF INH (19:25)
[2024-08-13] MEDS: LANTUS 0.14 UNITS SC (21:06)
[2024-08-13] MEDS: MORPHINE SULFATE 0.5 MG IV (21:07)
[2024-08-13 21:08] LABS: Glucose - Point of Care 363 mg/dl (70-99)
--- NOTE | 2024-08-13 21:54 | PTCARENOTE ---
Received patient at change of shift. Patient sitting in bed, awake and oriented. BP 103/54, A-Fib/Flutter, occasional V-pacing, PVCs, couplets, BBB, 60s-70s, 98% on room air. Discussed plan of care for evening. Patient verbalized understanding. Call
saini within reach.
[2024-08-14] VITALS (14 sets, daily range): BP systolic 64–115; BP diastolic 47–80; PULSE 60–76; BMI 23.4
[2024-08-14] MEDS: ERYTHROMYCIN 0.5% OPHTHALMIC OINTMENT RIGHT EYE ×2 (01:13→05:09)
[2024-08-14 04:37] LABS: Hematocrit 29.6 % (39.0-52.0); Hemoglobin 9.6 g/dL (13.0-18.0); Mean Corp Hgb Conc. 32.4 g/dL (33.0-37.0); Mean Corpuscular Hgb 31.7 pg (27.0-31.0); Mean Corpuscular Volume 97.7 fL (80.0-94.0); Mean Platelet Volume 10.1 fL (7.4-10.4); Platelet Count 266 10^3/uL (130-400); Red Blood Cell Count 3.03 10^6/uL (4.70-6.10); Red Cell Dist. Width 14.3 % (11.5-14.5); White Blood Cell Count 7.3 10^3/uL (4.8-10.8)
[2024-08-14 05:04] LABS: Blood Urea Nitrogen 55 mg/dl (9-20); Calcium 9.4 mg/dl (8.4-10.2); Carbon Dioxide 29 mmol/L (22-30); Chloride 94 mmol/L (98-107); Estimated Creatinine Clearance 38 ml/min; Glucose 148 mg/dl (70-99); Sodium 135 mmol/L (135-145); eGFR 36.33
[2024-08-14] MEDS: NOVOLOG FLEXPEN-LOW RESISTANCE 300 UNITS SC (08:23)
[2024-08-14] MEDS: NOVOLOG FLEXPEN 13 UNITS SC ×3 (08:24→17:14)
[2024-08-14 08:28] LABS: Glucose - Point of Care 163 mg/dl (70-99)
[2024-08-14] MEDS: MIRALAX 17 GRAMS PO (08:32)
[2024-08-14] MEDS: ASPIR LOW (ENTERIC COATED) 81 MG PO (08:33)
[2024-08-14] MEDS: SENOKOT-S 1 TABLET PO ×2 (08:33→20:11)
[2024-08-14] MEDS: KCL 20 MEQ PO (08:33)
[2024-08-14] MEDS: THERAGRAN 1 TABLET PO (08:34)
[2024-08-14] MEDS: CYMBALTA DELAYED RELEASE 60 MG PO (08:34)
[2024-08-14] MEDS: VITAMIN E 400 UNITS PO (08:34)
[2024-08-14] MEDS: FARXIGA 10 MG PO (08:34)
[2024-08-14] MEDS: PROTONIX 40 MG PO (08:34)
[2024-08-14] MEDS: SYMBICORT 160/4.5 MCG INHALER 2 PUFF INH ×2 (08:41→19:08)
[2024-08-14] MEDS: SPIRIVA RESPIMAT 2.5 MCG 2 PUFF INH (08:41)
[2024-08-14] MEDS: DELTASONE 40 MG PO (09:11)
[2024-08-14] MEDS: PRED FORTE 1% EYE DROPS 1 DROP RIGHT EYE ×4 (09:11→22:28)
[2024-08-14] MEDS: NOVOLOG FLEXPEN SC (09:14)
[2024-08-14] MEDS: DELTASONE PO (09:14)
[2024-08-14] MEDS: COREG PO (09:18)
[2024-08-14] MEDS: ZESTRIL PO (09:18)
[2024-08-14] MEDS: ERYTHROMYCIN 0.5% OPHTHALMIC OINTMENT 1 APPLIC RIGHT EYE ×4 (09:19→20:11)
--- NOTE | 2024-08-14 09:29 | W.PN.CARDCBS ---
Today's Communication / Plan
-
Cont tx of HF -RHC/[facility] 08/13/2024 showed significant elevated R/L heart filling pressures
-Hold IV diuresis as he was orthostatic today 08/14
-Weight was down 9 lbs from admission. No wt today as he was orthostatic
-Lasix increased to 80 mg IV BID after cath 08/12 Lasix dose has varied during this admission based on changing renal function.
-Is and Os negative over 2400 cc last 24 hrs
-appreciate nephrology input - goal wt down another 5-7 lbs, then transition to oral Lasix. He could potentially be there now as he was not able to be weighed yet.
-Patient was taking Lasix 40 mg PO daily prior to admission
EF 35% by echo 07/23/24 and was as high as 45% by echo 10/25/22, but back in 2019 EF was 25%.
-Outpatient dose of Coreg 3.125 mg BID has been continued
-Outpatient dose of Jardiance 10 mg daily has changed to Farxiga 10 mg daily due to formulary changes
-Patient is not chronically on ISAAC/ARB/ARNI/or aldosterone antagonist due to CHNIEDU
Continues V pacing
Repleate lytes as needed.
Appreciate nephrology input: CHINEDU on CKD 3b
-creat in stable range 2.0 during hospitalization (prior to admission 1.7-1.9)
Cont pulm toilet.
-Cont oral prednisone
Echo concerning for symptomatic severe in the setting of significant LV dysfunction/low gradient. R/[facility] w/ Dobutamine challenge -did not reveal true severe
Patient with fall prior to admission and when ICD interrogated 08/06/2024 finding no sustained arrhythmias, 100% A-fib, 50% ventricular paced. No arrhythmic etiology to this event
Patient has persistent Afib. No plans for rhythm control at this point. Outpatient dose of Xarelto 15 mg resumed following cath 08/12/2024 (creat clearance 26.6)
Dicsussed with nursing and with nephrology
Impression / Plan
-
.
Primary Care Provider: Dr. Glasgow
Primary Business Objects Analyst: Dr. Moreno
Impression:
presented with respiratory distress with diffuse wheezing bilaterally, hypoxia, and O2 Sats 85%
Acute on chronic HFrEF, NYHA class 3-4
Low flow low gradient / Moderate to severe with peak/mean gradients 38/21, WES 1.1 cm�. low-flow/low gradient severe , mild AI, echo 07/23/2024
CM w/ variable EF, most recent echo 07/23/2024 w/ decline in EF 30-35%
Right/left heart cath 08/12/2024: Significantly elevated right and left-sided filling pressures, normal cardiac output, significant [place] CAD, patent bypass grafts, dobutamine challenge did not reveal true severe
CHINEDU on CKD 3b
Fall at home, possibly syncope
COPD
Hypomagnesemia
Permanent atrial fibrillation
Chronic Xarelto OAC, creat clearance 39 based on creat 1.9 08/06/2024. Creat clearance 36.6 based on creat 2.0 08/13/2024
s/p Medtronic ICD 2014 s/p generator change 12/25/22
CAD
s/p CABG with VERNON to LAD and SVG to L PLB in 2008
cath with balloon angioplasty at VERNON to LAD ostial region in 2014
Type 2 DM
HLD
HTN
BPH
GERD
Ongoing tobacco use
ETOH use disorder, likely moderate to severe
LBBB
ECHO 12/20/19: 25-30%, global hypokinesis with mid anteroseptal, mid anterior, apical akinesis, dyskinesis of inferior apex, MAC, mild to moderate , peak/mean gradients 37/18 mmHg, WES 1.0 cm�, mild TR, PAP 37 mmHg
Echo 06/09/20: EF 25-30%, mild MR, mod peak/mean 30/15 mmHg WES 1.3 cm sq, dilated RV with grossly normal function
Echo 10/25/22: EF 45%, apical and anteroseptal wall akinesis, trace MR, mod to sev with peak/mean 33/19 mmHg and WES 0.8 cm sq
Echo 07/23/2024: EF 35% (visually 30 to 35%, mid to distal anteroseptal and apical akinesis, normal RV size and function, calcified, restricted AV. Peak/mean AV gradients 38/21. WES 1.1 cm�. Visually AV appears more stenotic, question whether there
could be a low flow/low gradient severe . Mild AI I. Mild to moderate TR, PAP 50 to 55 mmHg, mild to moderate MR
[facility] 08/12/2024: RA 19, PA 71/34, PCWP 38 with V waves to 58. CO/CI 4.65/2.25.
Significant [place] CAD, patent bypass grafts including SVG--distal circumflex and VERNON--LAD.
Dobutamine challenge did not reveal true severe aortic stenosis
Plan:
Cont tx of HF -[facility] 08/13/2024 showed significant elevated R/L heart filling pressures
-Hold IV diuresis as he was orthostatic today 08/14
-Weight was down 9 lbs from admission. No wt today as he was orthostatic
-Lasix increased to 80 mg IV BID after cath 08/12 Lasix dose has varied during this admission based on changing renal function.
-Is and Os negative over 2400 cc last 24 hrs
-appreciate nephrology input - goal wt down another 5-7 lbs, then transition to oral Lasix. He could potentially be there now as he was not able to be weighed yet.
-Patient was taking Lasix 40 mg PO daily prior to admission
EF 35% by echo 07/23/24 and was as high as 45% by echo 10/25/22, but back in 2019 EF was 25%.
-Outpatient dose of Coreg 3.125 mg BID has been continued
-Outpatient dose of Jardiance 10 mg daily has changed to Farxiga 10 mg daily due to formulary changes
-Patient is not chronically on ISAAC/ARB/ARNI/or aldosterone antagonist due to CHINEDU
Continues V pacing
Repleate lytes as needed.
Appreciate nephrology input: CHINEDU on CKD 3b
-creat in stable range 2.0 during hospitalization (prior to admission 1.7-1.9)
Cont pulm toilet.
-Cont oral prednisone
Echo concerning for symptomatic severe in the setting of significant LV dysfunction/low gradient. R/LHC w/ Dobutamine challenge -did not reveal true severe
Patient with fall prior to admission and when ICD interrogated 08/06/2024 finding no sustained arrhythmias, 100% A-fib, 50% ventricular paced. No arrhythmic etiology to this event
Patient has persistent Afib. No plans for rhythm control at this point. Outpatient dose of Xarelto 15 mg resumed following cath 08/12/2024 (creat clearance 26.6)
Dicsussed with nursing and with nephrology
Presented 08/05/2024 with severe shortness of breath and weakness with minimal exertion. Denies weight gain. Wt 180 lbs in cardiology office 07/06/2024. Overall outpatient wt down 24 lbs over past year (wt 204 lbs 05/2023). Reports 20 pound
weight loss in past 6 months. reports significant decline in past 2 to 3 weeks with worsening weakness and has been unable to support him with ambulation. Patient can only walk very short distance such as to bathroom without becoming weak and
having falls. He has had multiple falls in the last few weeks. Complains of dizziness, feeling like he blacks out, leading to fall. Patient reports no alcohol in the past week but previously drinking 2-3 vodka drinks daily.
Progress Note - Business Objects Analyst
Subjective
Date of Service: August 14, 2024
Pt seen and examined. No complaints. No chest pain or shortness of breath.
Objective
Labs:
08/14/24 03:59
08/14/24 03:59
Labs
Hgb 9.6 g/dL (13.0-18.0) L 08/14/24 03:59
Hct 29.6 % (39.0-52.0) L 08/14/24 03:59
Plt Count 266 10^3/uL (130-400) 08/14/24 03:59
APTT Cancelled 08/12/24 12:50
Sodium 135 mmol/L (135-145) 08/14/24 03:59
Potassium 4.0 mmol/L (3.5-5.1) 08/14/24 03:59
BUN 55 mg/dl (9-20) H 08/14/24 03:59
Creatinine 1.9 mg/dL (0.7-1.3) H 08/14/24 03:59
Glucose 148 mg/dl (70-99) H 08/14/24 03:59
Vital Signs and I&O:
Vital Signs
Temp Pulse Resp BP Pulse Ox
97.5 F 71 16 97/58 100
08/14/24 07:31 08/14/24 09:18 08/14/24 08:57 08/14/24 09:18 08/14/24 07:31
Vital Signs
Temp Pulse Resp BP Pulse Ox
97.5 F 71 16 58 100
08/14/24 07:31 08/14/24 09:18 08/14/24 08:57 08/14/24 09:18 08/14/24 07:31
Intake & Output
08/12/24 08/13/24 08/14/24 08/15/24
06:59 06:59 06:59 06:59
Intake Total 720 / 720 1200 / 1680 480 / 480
Output Total 1050 / 1050 4775 / 4775 2225 / 2225 250 / 250
Balance -330 / -330 -3575 / -3095 -1745 / -1745 -250 / -250
Physical Exam
Physical Exam
General: No acute distress, AAOX3
Neck: Negative JVD
Heart: Irregularly irregular, Negative S3 positive S1/S2, Negative S4, No murmur
Lungs: CTA b/l, negative wheezes/rales/rhonchi
Abd: Positive BS, NT/ND, neg rebound/rigidity/guarding
Ext: Negative cyanosis/clubbing/edema
Neuro: nonfocal
--- NOTE | 2024-08-14 10:04 | PTCARENOTE ---
Pt orthostatic w/ BP 64/54. Pt symptomatic as he was colon and shaking while standing. Unable to weigh pt at this time. Pt's BP 99/47, HR 67 at rest. Will monitor.
--- NOTE | 2024-08-14 10:05 | W.PN.HOSP.TC ---
Today's Communication/Plan
-
see note
rehab earliest Mon
Assessment / Plan
Assessment / Plan
Acute on chronic systolic CHF
Acute hypoxic respiratory insufficiency - Improved
Severe
- s/p TTE 07/23 with concern for low flow/low gradient severe ; mild to moderate MR. Compared to prior study 04/01/2023 aortic valve gradients are lower than noted previously but visually aortic valve appears severely stenotic. Left ventricular
ejection fraction previously noted to be 45 to 50% and now visually 30 to 35%. Pulmonary artery pressure previously 34 mmHg now 50 to 55 mmHg.
- GDMT: continue Coreg, Jardiance
-08/09 Cardiology initially plan to do left/right heart catheterization although with creatinine elevation nephro input has been requested. Patient at risk of COLETTE. Unfortunately without heart catheterization patient at risk of further deterioration
of cardiac issues. Difficult situation.
-08/10 patient unable to tolerate heart catheterization as became orthopneic on table with oxygen saturation going down. Was brought back to medical floor.
-S/p LHC/RHC -showing increased right-sided pressure, normal cardiac index. Dobutamine challenge did not show any significant increase in transvalvular gradient for known .
-Patient started on IV Lasix 80 mg twice daily
COPD flare up
-08/10 CXR increased pulmonary interstitial markings possibility of interstitial edema versus pneumonitis
-Maintain on duo-neb therapy
-morphine IV 0.5 mg every 4hrs ordered for dyspnea by manager park.
-Bedside PFT done by pulmo
-IV Decadron has been discontinued. Dose decreased of prednisone to 40 mg daily
Orthostatic [id number]
-Patient reported shaking/getting lethargic on standing up
-Likely secondary to orthostatic hypotension, vitals were positive during the stay
-Continue repeat check twice daily
-On lowest dose of Coreg and lisinopril for heart issues
-Ordered compression stockings
CHINEDU on CKD stage 3b
-Creatinine stable around 2
-weight down, on diuretic therapy.
-bladder scan ordered.
Acute anemia on chronic anemia
- Hbg stable around 8-9 range, continue monitor for bleeding issues.
- anemia indices normal, hemolysis panels negative
CAD s/p CABG
Hx of [place]
HX of ICD 2022
HLD
- continue ASA/Statin/BB
Essential HTN
- continue BP meds
NIDDM
-A1c: 7.0%
-Expect blood glucose to be uncontrolled with steroids use
-Diabetic LINK TRAINER TEACHER help requested.
-Dose of Lantus/Premeal insulin increased today
permanent Atrial Fibrillation
- continue Coreg
- restarted on xarelto
Hx Alcohol Abuse
Unstable Gait
- B12 normal, Folate normal, B1 pending
- msas discontinued
Scab on right 5th lateral toe suspected pressure injury, POA
-continue wound care
Chronic T12 compression deformity with possible superimposed acute/subacute component
Partially healed minimally displaced fractures involving the posterior left 9th through 12th ribs
hx of CVA - continue ASA/Statin
GERD - continue PPI
DVT ppx: xarelto
Code: DNR/DNI
08/10 Patient visibly upset and being verbally argumentative. Blaming for ' lack of co-ordination ' and ' lack of any actions '. Unable to reason with spouse that patient kidney function needed to be stabilized before attempt at heart cath.
Same reason diuretics needed to be held , this unfortunately did cause orthopnea today and resulting aborting heart cath. Unfortunately providing empiric diuretics without further definitive volume assessment would have caused renal failure as well
and thus would have excluded as a candidate of heart cath. There is no good answer and unfortunately spouse not in a state of understanding any of this.
Of note spouse clenching teeth and making fist/shaking and at time reported inappropriate threatening behavior to medical staff.
08/14 Discussed with Patient's Spouse over the Phone. All Questions Answered
Anticipated Discharge: 24 - 48 hours
Subjective/Interval History
-
Date of Service: August 14, 2024
Patient resting comfortably in bed
Remains off of oxygen
Denies of having any dyspnea/chest discomfort/abdominal pain
No other acute issues reported
Objective Data
-
Labs:
Laboratory Results
08/14/24
03:59
WBC 7.3
Hgb 9.6 L
Hct 29.6 L
Plt Count 266
Sodium 135
Potassium 4.0
Chloride 94 L
Carbon Dioxide 29
BUN 55 H
Creatinine 1.9 H
Glucose 148 H
Calcium 9.4
Vital Signs:
Vital Signs
Temp Pulse Resp BP Pulse Ox
97.5 F 71 16 97/58 100
08/14/24 07:31 08/14/24 09:18 08/14/24 08:57 08/14/24 09:18 08/14/24 07:31
I&O
08/13/24 08/14/24 08/15/24
06:59 06:59 06:59
Intake Total 1200 / 1680 480 / 480
Output Total 4775 / 4775 2225 / 2225 250 / 250
Balance -3575 / -3095 -1745 / -1745 -250 / -250
Review of Systems
-
Respiratory: Reports No Symptoms
Cardiac: Reports No Symptoms
Abdomen/GI: Reports No Symptoms
Physical Exam
-
General: Negative Respiratory Distress
HEENT: Negative Oxygen
Respiratory: Clear to Auscultation
Cardiac: Regular Rhythm and S1/S2; Negative Murmur
GI: Soft, Nontender and Nondistended
Musculoskeletal: Negative Edema, Right Lower Extrem or Edema, Left Lower Extrem
Neuro: Awake, Alert and Oriented
[2024-08-14] MEDS: LASIX IV (10:48)
--- NOTE | 2024-08-14 11:24 | W.PN.NEPH.PH ---
Today's Communication / Plan
-
Hold Lasix
Assessment/Plan
-
Assessment
CHINEDU
CKD3b
Heart failure reduced ejection fraction decompensated wedge 38
Severe aortic stenosis-not severe on recent LHC/RHC/dobutamine challenge
Moderate MR/TR
Smoking, alcohol use
Coronary artery disease with bypass
diabetes mellitus type 2
A-fib pacer
Hypertension
Plan
Hold Lasix
When restarted will use oral Lasix 80 mg daily
follow BMP
Follow orthostasis, medicines held
-
-
Date of Service: August 14, 2024
CC / HPI / ROS
-
Chief Complaint:
CHINEDU
History of Present Illness:
CHINEDU/Cr stable 1.9
K stable
BP stable low but orthostatic
diuresed well with IV lasix for decompensated HF
Review of Systems:
no CP/SOB
Weights down
Labs
-
Labs:
WBC 7.3 10^3/uL (4.8-10.8) 08/14/24 03:59
RBC 3.03 10^6/uL (4.70-6.10) L 08/14/24 03:59
Hgb 9.6 g/dL (13.0-18.0) L 08/14/24 03:59
Hct 29.6 % (39.0-52.0) L 08/14/24 03:59
Plt Count 266 10^3/uL (130-400) 08/14/24 03:59
Sodium 135 mmol/L (135-145) 08/14/24 03:59
Potassium 4.0 mmol/L (3.5-5.1) 08/14/24 03:59
Chloride 94 mmol/L (98-107) L 08/14/24 03:59
Carbon Dioxide 29 mmol/L (22-30) 08/14/24 03:59
BUN 55 mg/dl (9-20) H 08/14/24 03:59
Creatinine 1.9 mg/dL (0.7-1.3) H 08/14/24 03:59
eGFR 36.33 08/14/24 03:59
Glucose 148 mg/dl (70-99) H 08/14/24 03:59
Calcium 9.4 mg/dl (8.4-10.2) 08/14/24 03:59
Phosphorus 2.9 mg/dl (2.5-4.5) 08/07/24 04:54
Bcj-K-Oxlgzxsknhh Pept 4590 pg/ml 08/05/24 16:37
Albumin 3.9 g/dl (3.5-5.0) 08/05/24 17:04
Physical Exam
-
Vital Signs:
Vital Signs
Temp Pulse Resp BP Pulse Ox
97.5 F 75 18 64/54 99
08/14/24 11:09 08/14/24 10:48 08/14/24 11:09 08/14/24 10:48 08/14/24 11:09
Cardiovascular:: Regular rate and rhythm
Respiratory:: Bilateral: CTA
Lung Excursion:: Normal
Abdomen:: Nontender and Soft
Bowel Sounds:: Normal
Extremity Edema:: None: Bilateral:
[2024-08-14] MEDS: NOVOLOG FLEXPEN-LOW RESISTANCE 2 UNITS SC ×2 (12:25→17:14)
[2024-08-14 12:28] LABS: Glucose - Point of Care 244 mg/dl (70-99)
[2024-08-14 16:35] LABS: Glucose - Point of Care 205 mg/dl (70-99)
[2024-08-14] MEDS: CRESTOR 40 MG PO (17:38)
[2024-08-14] MEDS: XARELTO 15 MG PO (17:38)
--- NOTE | 2024-08-14 18:28 | PTCARENOTE ---
Unable to complete orthostatic vital signs due to pt shaking and feeling too unsteady to stand. Pt transferred to the recliner, where he sat for 2 hrs. Pt ambulated back to bed without difficulty. Repeat BP 110/60, heart rate 87. Will monitor.
[2024-08-14] MEDS: COREG 3.125 MG PO (20:10)
[2024-08-14] MEDS: MORPHINE SULFATE 0.5 MG IV (20:11)
[2024-08-14 22:27] LABS: Glucose - Point of Care 168 mg/dl (70-99)
[2024-08-14] MEDS: LANTUS 0.18 UNITS SC (22:27)
--- NOTE | 2024-08-14 22:39 | PTCARENOTE ---
Received patient at change of shift. Afib on the monitor, HR in the 60s. Patient complains of dyspnea, PRN morphine administered as per SEP. Call saini within reach.
[2024-08-15] MEDS: ERYTHROMYCIN 0.5% OPHTHALMIC OINTMENT RIGHT EYE ×3 (00:03→23:07)
[2024-08-15 03:20] VITALS: BP 111/83
[2024-08-15 04:49] LABS: Hematocrit 33.1 % (39.0-52.0); Hemoglobin 10.9 g/dL (13.0-18.0); Mean Corp Hgb Conc. 32.9 g/dL (33.0-37.0); Mean Corpuscular Hgb 32.4 pg (27.0-31.0); Mean Corpuscular Volume 98.5 fL (80.0-94.0); Mean Platelet Volume 10.4 fL (7.4-10.4); Platelet Count 293 10^3/uL (130-400); Red Blood Cell Count 3.36 10^6/uL (4.70-6.10); White Blood Cell Count 9.5 10^3/uL (4.8-10.8)
[2024-08-15 04:52] LABS: Blood Urea Nitrogen 51 mg/dl (9-20); Calcium 9.5 mg/dl (8.4-10.2); Carbon Dioxide 28 mmol/L (22-30); Chloride 96 mmol/L (98-107); Estimated Creatinine Clearance 42 ml/min; Glucose 112 mg/dl (70-99); Potassium 4.8 mmol/L (3.5-5.1); Sodium 136 mmol/L (135-145); eGFR 41.52
[2024-08-15] MEDS: SYMBICORT 160/4.5 MCG INHALER 2 PUFF INH ×2 (07:51→18:07)
[2024-08-15] MEDS: SPIRIVA RESPIMAT 2.5 MCG 2 PUFF INH (07:51)
[2024-08-15 08:13] VITALS: BP 105/68
[2024-08-15 08:26] VITALS: BMI 23.2
[2024-08-15 08:28] LABS: Glucose - Point of Care 129 mg/dl (70-99)
[2024-08-15] MEDS: CYMBALTA DELAYED RELEASE 60 MG PO (08:36)
[2024-08-15] MEDS: FARXIGA 10 MG PO (08:36)
[2024-08-15] MEDS: PROTONIX 40 MG PO (08:36)
[2024-08-15] MEDS: VITAMIN E 400 UNITS PO (08:36)
[2024-08-15] MEDS: ZESTRIL 2.5 MG PO (08:38)
[2024-08-15] MEDS: MIRALAX 17 GRAMS PO (08:39)
[2024-08-15] MEDS: ASPIR LOW (ENTERIC COATED) 81 MG PO (08:39)
[2024-08-15] MEDS: SENOKOT-S 1 TABLET PO (08:39)
[2024-08-15] MEDS: THERAGRAN 1 TABLET PO (08:39)
[2024-08-15] MEDS: KCL 20 MEQ PO (08:39)
[2024-08-15] MEDS: COREG 3.125 MG PO ×2 (08:39→19:42)
[2024-08-15] MEDS: NOVOLOG FLEXPEN 13 UNITS SC ×3 (08:42→16:27)
[2024-08-15] MEDS: NOVOLOG FLEXPEN-LOW RESISTANCE SC (08:44)
--- NOTE | 2024-08-15 08:46 | W.PN.CARDCBS ---
Today's Communication / Plan
-
Cont tx of HF -RHC/[facility] 08/13/2024 showed significant elevated R/L heart filling pressures
-Hold IV diuresis as he was orthostatic 08/14
-Weight was down over 10 lbs from admission. Wt continues to come down even without diuretics
-Lasix had been increased to 80 mg IV BID after cath 08/12 Lasix dose has varied during this admission based on changing renal function.
-Is and Os negative over 3L last 48 hrs
-appreciate nephrology input, would consider resuming oral lasix next 24 hrs if ok with nephrology
nephrology considering lasix 80 mg daily ( He was taking Lasix 40 mg PO daily prior to admission )
EF 35% by echo 07/23/24 and was as high as 45% by echo 10/25/22, but back in 2019 EF was 25%.
-Outpatient dose of Coreg 3.125 mg BID has been continued
-Outpatient dose of Jardiance 10 mg daily has changed to Farxiga 10 mg daily due to formulary changes
-Patient is not chronically on ISAAC/ARB/ARNI/or aldosterone antagonist due to CHINEDU
Continues V pacing
Repleate lytes as needed.
Appreciate nephrology input: CHINEDU on CKD 3b
-creat in stable range down to 1.7 which is his baseline (prior to admission cr 1.7-1.9)
Cont pulm toilet.
-Cont oral prednisone
Echo concerning for symptomatic severe in the setting of significant LV dysfunction/low gradient. R/[facility] w/ Dobutamine challenge -did not reveal true severe
Patient with fall prior to admission and when ICD interrogated 08/06/2024 finding no sustained arrhythmias, 100% A-fib, 50% ventricular paced. No arrhythmic etiology to this event
Patient has persistent Afib.
Cont rate control
No plans for rhythm control at this point.
Outpatient dose of Xarelto 15 mg resumed following cath 08/12/2024 (creat clearance 26.6)
Impression / Plan
-
.
Primary Care Provider: Dr. Glasgow
Primary Electrical Instrument Technician: Dr. Moreno
Impression:
presented with respiratory distress with diffuse wheezing bilaterally, hypoxia, and O2 Sats 85%
Acute on chronic HFrEF, NYHA class 3-4
Low flow low gradient / Moderate to severe with peak/mean gradients 38/21, WES 1.1 cm�. low-flow/low gradient severe , mild AI, echo 07/23/2024
CM w/ variable EF, most recent echo 07/23/2024 w/ decline in EF 30-35%
Right/left heart cath 08/12/2024: Significantly elevated right and left-sided filling pressures, normal cardiac output, significant [place] CAD, patent bypass grafts, dobutamine challenge did not reveal true severe
CHINEDU on CKD 3b
Fall at home, possibly syncope
COPD
Hypomagnesemia
Permanent atrial fibrillation
Chronic Xarelto OAC, creat clearance 39 based on creat 1.9 08/06/2024. Creat clearance 36.6 based on creat 2.0 08/13/2024
s/p [employer] ICD 2014 s/p generator change 12/25/22
CAD
s/p CABG with [facility] to LAD and SVG to L PLB in 2008
cath with balloon angioplasty at [facility] to LAD ostial region in 2014
Type 2 DM
HLD
HTN
BPH
GERD
Ongoing tobacco use
ETOH use disorder, likely moderate to severe
LBBB
ECHO 12/20/19: 25-30%, global hypokinesis with mid anteroseptal, mid anterior, apical akinesis, dyskinesis of inferior apex, MAC, mild to moderate , peak/mean gradients 37/18 mmHg, WES 1.0 cm�, mild TR, PAP 37 mmHg
Echo 06/09/20: EF 25-30%, mild MR, mod peak/mean 30/15 mmHg WES 1.3 cm sq, dilated RV with grossly normal function
Echo 10/25/22: EF 45%, apical and anteroseptal wall akinesis, trace MR, mod to sev with peak/mean 33/19 mmHg and WES 0.8 cm sq
Echo 07/23/2024: EF 35% (visually 30 to 35%, mid to distal anteroseptal and apical akinesis, normal RV size and function, calcified, restricted AV. Peak/mean AV gradients 38/21. WES 1.1 cm�. Visually AV appears more stenotic, question whether there
could be a low flow/low gradient severe . Mild AI I. Mild to moderate TR, PAP 50 to 55 mmHg, mild to moderate MR
[facility] 08/12/2024: RA 19, PA 71/34, PCWP 38 with V waves to 58. CO/CI 4.65/2.25.
Significant [place] CAD, patent bypass grafts including SVG--distal circumflex and VERNON--LAD.
Dobutamine challenge did not reveal true severe aortic stenosis
Plan:
Cont tx of HF -[facility] 08/13/2024 showed significant elevated R/L heart filling pressures
-Hold IV diuresis as he was orthostatic 08/14
-Weight was down over 10 lbs from admission. Wt continues to come down even without diuretics
-Lasix had been increased to 80 mg IV BID after cath 08/12 Lasix dose has varied during this admission based on changing renal function.
-Is and Os negative over 3L last 48 hrs
-appreciate nephrology input, would consider resuming oral lasix next 24 hrs if ok with nephrology
nephrology considering lasix 80 mg daily ( He was taking Lasix 40 mg PO daily prior to admission )
EF 35% by echo 07/23/24 and was as high as 45% by echo 10/25/22, but back in 2019 EF was 25%.
-Outpatient dose of Coreg 3.125 mg BID has been continued
-Outpatient dose of Jardiance 10 mg daily has changed to Farxiga 10 mg daily due to formulary changes
-Patient is not chronically on ISAAC/ARB/ARNI/or aldosterone antagonist due to CHINEDU
Continues V pacing
Repleate lytes as needed.
Appreciate nephrology input: CHINEDU on CKD 3b
-creat in stable range down to 1.7 which is his baseline (prior to admission cr 1.7-1.9)
Cont pulm toilet.
-Cont oral prednisone
Echo concerning for symptomatic severe in the setting of significant LV dysfunction/low gradient. R/LHC w/ Dobutamine challenge -did not reveal true severe
Patient with fall prior to admission and when ICD interrogated 08/06/2024 finding no sustained arrhythmias, 100% A-fib, 50% ventricular paced. No arrhythmic etiology to this event
Patient has persistent Afib.
Cont rate control
No plans for rhythm control at this point.
Outpatient dose of Xarelto 15 mg resumed following cath 08/12/2024 (creat clearance 26.6)
Discussed with nursing and with primary service
Presented 08/05/2024 with severe shortness of breath and weakness with minimal exertion. Denies weight gain. Wt 180 lbs in cardiology office 07/06/2024. Overall outpatient wt down 24 lbs over past year (wt 204 lbs 05/2023). Reports 20 pound
weight loss in past 6 months. reports significant decline in past 2 to 3 weeks with worsening weakness and has been unable to support him with ambulation. Patient can only walk very short distance such as to bathroom without becoming weak and
having falls. He has had multiple falls in the last few weeks. Complains of dizziness, feeling like he blacks out, leading to fall. Patient reports no alcohol in the past week but previously drinking 2-3 vodka drinks daily.
Progress Note - Electrical Instrument Technician
Subjective
Date of Service: August 15, 2024
Pt seen and examined. No complaints. No chest pain or shortness of breath.
Objective
Labs:
08/15/24 03:34
08/15/24 03:34
Labs
Hgb 10.9 g/dL (13.0-18.0) L 08/15/24 03:34
Hct 33.1 % (39.0-52.0) L 08/15/24 03:34
Plt Count 293 10^3/uL (130-400) 08/15/24 03:34
APTT Cancelled 08/12/24 12:50
Sodium 136 mmol/L (135-145) 08/15/24 03:34
Potassium 4.8 mmol/L (3.5-5.1) 08/15/24 03:34
BUN 51 mg/dl (9-20) H 08/15/24 03:34
Creatinine 1.7 mg/dL (0.7-1.3) H 08/15/24 03:34
Glucose 112 mg/dl (70-99) H 08/15/24 03:34
Vital Signs and I&O:
Vital Signs
Temp Pulse Resp BP Pulse Ox
97.8 F 67 16 105/68 92
08/15/24 03:20 08/15/24 08:38 08/15/24 07:55 08/15/24 08:38 08/15/24 07:55
Vital Signs
Temp Pulse Resp BP Pulse Ox
97.8 F 67 16 105/68 92
08/15/24 03:20 08/15/24 08:38 08/15/24 07:55 08/15/24 08:38 08/15/24 07:55
Intake & Output
08/13/24 08/14/24 08/15/24 08/16/24
06:59 06:59 06:59 06:59
Intake Total 1200 / 1680 480 / 480 600 / 600
Output Total 4775 / 4775 2225 / 2225 1550 / 1550
Balance -3575 / -3095 -1745 / -1745 -950 / -950
Physical Exam
Physical Exam
General: No acute distress, AAOX3
Neck: Negative JVD
Heart: Irregularly irregular, Negative S3 positive S1/S2, Negative S4, No murmur
Lungs: CTA b/l, negative wheezes/rales/rhonchi
Abd: Positive BS, NT/ND, neg rebound/rigidity/guarding
Ext: Negative cyanosis/clubbing/edema
Neuro: nonfocal
[2024-08-15] MEDS: DELTASONE 40 MG PO (09:04)
[2024-08-15] MEDS: PRED FORTE 1% EYE DROPS 1 DROP RIGHT EYE ×4 (09:05→22:56)
[2024-08-15] MEDS: ERYTHROMYCIN 0.5% OPHTHALMIC OINTMENT 1 APPLIC RIGHT EYE ×4 (09:05→19:42)
--- NOTE | 2024-08-15 09:24 | W.PN.HOSP.TC ---
Today's Communication/Plan
-
see note
earliest snf rehab tomorrow onward
Assessment / Plan
Assessment / Plan
Acute on chronic systolic CHF
Acute hypoxic respiratory insufficiency - Improved
Severe
- s/p TTE 07/23 with concern for low flow/low gradient severe ; mild to moderate MR. Compared to prior study 04/01/2023 aortic valve gradients are lower than noted previously but visually aortic valve appears severely stenotic. Left ventricular
ejection fraction previously noted to be 45 to 50% and now visually 30 to 35%. Pulmonary artery pressure previously 34 mmHg now 50 to 55 mmHg.
- GDMT: continue Coreg, Jardiance
-08/09 Cardiology initially plan to do left/right heart catheterization although with creatinine elevation nephro input has been requested. Patient at risk of COLETTE. Unfortunately without heart catheterization patient at risk of further deterioration
of cardiac issues. Difficult situation.
-08/10 patient unable to tolerate heart catheterization as became orthopneic on table with oxygen saturation going down. Was brought back to medical floor.
-S/p LHC/RHC -showing increased right-sided pressure, normal cardiac index. Dobutamine challenge did not show any significant increase in transvalvular gradient for known .
-Cardio/nephro will decide further Lasix dosing, of note no dose given for 08/14 due to orthostasis issue
COPD flare up
-08/10 CXR increased pulmonary interstitial markings possibility of interstitial edema versus pneumonitis
-Maintain on duo-neb therapy
-Discontinued further morphine dosing.
-Bedside PFT done by pulmo
-IV Decadron has been discontinued. Dose decreased of prednisone to 40 mg daily > continue quick taper as possible
Orthostatic hypotension
-Patient reported to have shaking/getting lethargic on standing up by spouse
-Likely secondary to orthostatic hypotension, vitals positive, RN show similar event unfolding yesterday on ortho vitals check
-Continue repeat check twice daily
-On lowest dose of Coreg and lisinopril for heart issues
-Ordered compression stockings
CHINEDU on CKD stage 3b
-Creatinine stable around 2
-weight down, on diuretic therapy.
-bladder scan ordered.
Acute anemia on chronic anemia
- Hbg stable around 8-9 range, continue monitor for bleeding issues.
- anemia indices normal, hemolysis panels negative
CAD s/p CABG
Hx of [place]
HX of ICD 2022
HLD
- continue ASA/Statin/BB
Essential HTN
- continue BP meds
NIDDM
-A1c: 7.0%
-Expect blood glucose to be uncontrolled with steroids use
-Diabetic MEMORIAL COUNSELOR help requested.
-Blood glucose controlled today on Lantus/NovoLog regimen. Will adjust further based on trend.
permanent Atrial Fibrillation
- continue Coreg
- restarted on xarelto
Hx Alcohol Abuse
Unstable Gait
- B12 normal, Folate normal, B1 pending
- msas discontinued
Scab on right 5th lateral toe suspected pressure injury, POA
-continue wound care
Chronic T12 compression deformity with possible superimposed acute/subacute component
Partially healed minimally displaced fractures involving the posterior left 9th through 12th ribs
hx of CVA - continue ASA/Statin
GERD - continue PPI
DVT ppx: xarelto
Code: DNR/DNI
08/10 Patient visibly upset and being verbally argumentative. Blaming for ' lack of co-ordination ' and ' lack of any actions '. Unable to reason with spouse that patient kidney function needed to be stabilized before attempt at heart cath.
Same reason diuretics needed to be held , this unfortunately did cause orthopnea today and resulting aborting heart cath. Unfortunately providing empiric diuretics without further definitive volume assessment would have caused renal failure as well
and thus would have excluded as a candidate of heart cath. There is no good answer and unfortunately spouse not in a state of understanding any of this.
Of note spouse clenching teeth and making fist/shaking and at time reported inappropriate threatening behavior to medical staff.
08/14 Discussed with Patient's Spouse over the Phone. All Questions Answered
Anticipated Discharge: 24 - 48 hours
Subjective/Interval History
-
Date of Service: August 15, 2024
Resting comfortably in bed
Patient apparently had reproducible episode of shaking/lethargy on orthostatic evaluation yesterday
Remains off of oxygen
not voicing any complaints of dyspnea/pleuritic cough
Objective Data
-
Labs:
Laboratory Results
08/15/24
03:34
WBC 9.5
Hgb 10.9 L
Hct 33.1 L
Plt Count 293
Sodium 136
Potassium 4.8
Chloride 96 L
Carbon Dioxide 28
BUN 51 H
Creatinine 1.7 H
Glucose 112 H
Calcium 9.5
Vital Signs:
Vital Signs
Temp Pulse Resp BP Pulse Ox
97.8 F 67 16 105/68 92
08/15/24 03:20 08/15/24 08:38 08/15/24 07:55 08/15/24 08:38 08/15/24 07:55
I&O
08/14/24 08/15/24 08/16/24
06:59 06:59 06:59
Intake Total 480 / 480 600 / 600
Output Total 2225 / 2225 1550 / 1550
Balance -1745 / -1745 -950 / -950
Review of Systems
-
Respiratory: Denies Cough or Trouble Breathing
Cardiac: Reports No Symptoms
Abdomen/GI: Reports No Symptoms
Physical Exam
-
General: Negative Respiratory Distress
HEENT: Negative Oxygen
Respiratory: Clear to Auscultation
Cardiac: Regular Rhythm and S1/S2; Negative Murmur
GI: Soft, Nontender and Nondistended
Musculoskeletal: Negative Edema, Right Lower Extrem or Edema, Left Lower Extrem
Neuro: Awake, Alert and Oriented
--- NOTE | 2024-08-15 10:44 | W.PN.NEPH.PH ---
Today's Communication / Plan
-
follow BMP
Assessment/Plan
-
Assessment
CHINEDU
CKD3b
Heart failure reduced ejection fraction decompensated wedge 38
Severe aortic stenosis-not severe on recent LHC/RHC/dobutamine challenge
Moderate MR/TR
Smoking, alcohol use
Coronary artery disease with bypass
diabetes mellitus type 2
A-fib pacer
Hypertension
Plan
Hold Lasix again today
When restarted will use oral Lasix 80 mg daily, possibly next 24-48h
follow BMP
Follow orthostasis
-
-
Date of Service: August 15, 2024
CC / HPI / ROS
-
Chief Complaint:
CHINEDU
History of Present Illness:
CHINEDU/Cr stable 1.97
K stable
BP stable low but orthostatic
diuresed well with IV lasix for decompensated HF, now on hold
weight still dropping
Review of Systems:
no CP/SOB
Weights down
Labs
-
Labs:
WBC 9.5 10^3/uL (4.8-10.8) 08/15/24 03:34
RBC 3.36 10^6/uL (4.70-6.10) L 08/15/24 03:34
Hgb 10.9 g/dL (13.0-18.0) L 08/15/24 03:34
Hct 33.1 % (39.0-52.0) L 08/15/24 03:34
Plt Count 293 10^3/uL (130-400) 08/15/24 03:34
Sodium 136 mmol/L (135-145) 08/15/24 03:34
Potassium 4.8 mmol/L (3.5-5.1) 08/15/24 03:34
Chloride 96 mmol/L (98-107) L 08/15/24 03:34
Carbon Dioxide 28 mmol/L (22-30) 08/15/24 03:34
BUN 51 mg/dl (9-20) H 08/15/24 03:34
Creatinine 1.7 mg/dL (0.7-1.3) H 08/15/24 03:34
eGFR 41.52 08/15/24 03:34
Glucose 112 mg/dl (70-99) H 08/15/24 03:34
Calcium 9.5 mg/dl (8.4-10.2) 08/15/24 03:34
Phosphorus 2.9 mg/dl (2.5-4.5) 08/07/24 04:54
Fen-X-Ohqciqjvhyu Pept 4590 pg/ml 08/05/24 16:37
Albumin 3.9 g/dl (3.5-5.0) 08/05/24 17:04
Physical Exam
-
Vital Signs:
Vital Signs
Temp Pulse Resp BP Pulse Ox
97.5 F 91 18 105/68 99
08/15/24 08:10 08/15/24 09:00 08/15/24 08:10 08/15/24 08:38 08/15/24 08:13
Cardiovascular:: Regular rate and rhythm
Respiratory:: Bilateral: Coarse
Lung Excursion:: Normal
Abdomen:: Nontender and Soft
Bowel Sounds:: Normal
Extremity Edema:: None: Bilateral:
[2024-08-15 11:59] VITALS: BP 102/59
[2024-08-15 12:10] LABS: Glucose - Point of Care 186 mg/dl (70-99)
[2024-08-15] MEDS: NOVOLOG FLEXPEN-LOW RESISTANCE 1 UNITS SC (12:47)
[2024-08-15 15:09] VITALS: BP 100/51
[2024-08-15] MEDS: NOVOLOG FLEXPEN-LOW RESISTANCE 2 UNITS SC (16:26)
[2024-08-15 16:33] LABS: Glucose - Point of Care 248 mg/dl (70-99)
--- NOTE | 2024-08-15 16:57 | PTCARENOTE ---
Encouraged increased ambulation w/ pt. Discussed plan for rehab. Will monitor.
[2024-08-15] MEDS: CRESTOR 40 MG PO (17:50)
[2024-08-15] MEDS: XARELTO 15 MG PO (17:50)
[2024-08-15 19:42] VITALS: BP 100/57
[2024-08-15] MEDS: SENOKOT-S PO (19:42)
[2024-08-15] MEDS: LANTUS 0.18 UNITS SC (22:55)
[2024-08-15 22:56] LABS: Glucose - Point of Care 129 mg/dl (70-99)
[2024-08-15 22:59] VITALS: BP 98/64
--- NOTE | 2024-08-15 23:16 | PTCARENOTE ---
Received patient at change of shift. Afib with PVCs on the monitor, HR in the 60s. Patient refused Tubigrips, education on compression therapy provided. Call saini within reach.
[2024-08-16] VITALS (21 sets, daily range): BP systolic 72–114; BP diastolic 34–70; PULSE 68–78; O2SAT 99; BMI 23.2
[2024-08-16] MEDS: ERYTHROMYCIN 0.5% OPHTHALMIC OINTMENT 1 APPLIC RIGHT EYE ×5 (04:16→19:39)
[2024-08-16 05:18] LABS: Blood Urea Nitrogen 46 mg/dl (9-20); Calcium 9.4 mg/dl (8.4-10.2); Carbon Dioxide 29 mmol/L (22-30); Chloride 97 mmol/L (98-107); Estimated Creatinine Clearance 45 ml/min; Glucose 117 mg/dl (70-99); Potassium 4.7 mmol/L (3.5-5.1); Sodium 135 mmol/L (135-145); eGFR 44.65
[2024-08-16] MEDS: SYMBICORT 160/4.5 MCG INHALER 2 PUFF INH ×2 (07:12→19:30)
[2024-08-16] MEDS: SPIRIVA RESPIMAT 2.5 MCG 2 PUFF INH (07:12)
--- NOTE | 2024-08-16 07:52 | PN.DE.MGMTRT ---
Insulin Management
- -
08/16/2024: Diabetes Management F/U:
Patient admitted 08/05 with weakness, SOB - acute on chronic CHF, recent multiple falls at home.
PMH: [place], CAD s/p CABG, CHF, Aortic Stenosis, COPD, ANTWAN, CVA, GERD, HTN, HCL, CKD3b and T2DM.
Prior to admission was taking metformin 1000 mg daily and Jardiance 10 mg daily. States he has had diabetes for over 20 years, his primary doctor, Dr. Glasgow manages his diabetes. A1C 7, cr 2, eGFR 34.16.
Patient is awake alert and oriented, able to discuss diabetes management. Elizabeth at bedside.
Remains on tapered dose of steroids, contributing to persistent Hyperglycemia, glucose up to 248 @ dinner yesterday.
08/15 pre meal glucose range 129 to 248, requiring 1-2 units additional corrective insulin with meals. Received 15 units Lantus, fasting glucose 218 POC this AM.
Will increase AC NovoLog to 15 units. Cont HS Lantus to 18 units, Farxiga 10mg daily and low corrective insulin. MFM on hold, Cr 1.6 today.
Will cont to follow and make further insulin dose adjustments if necessary.
Discussed with nurse, pt and at bedside.
Diabetes History
- -
Type of Diabetes: 2 requiring insulin
Pre-Admission Diabetes Regimen
08/16/24
04:17
Creatinine 1.6 H
Lab Results
Hemoglobin A1c 7.0 % (4.0-5.6) H 08/06/24 07:14
Insulin Pump Settings
IP Diabetes Regimen
08/15/24 08/15/24 08/15/24
08:19 12:05 16:24
Glucose
POC Glucose 129 H 186 H 248 H
08/15/24 08/16/24
22:54 04:17
Glucose 117 H
POC Glucose 129 H
Patient Education
[2024-08-16 08:10] LABS: Glucose - Point of Care 218 mg/dl (70-99)
[2024-08-16] MEDS: NOVOLOG FLEXPEN 13 UNITS SC (08:13)
[2024-08-16] MEDS: NOVOLOG FLEXPEN-LOW RESISTANCE 2 UNITS SC (08:14)
[2024-08-16] MEDS: VITAMIN E 400 UNITS PO (08:23)
[2024-08-16] MEDS: MIRALAX 17 GRAMS PO (08:23)
[2024-08-16] MEDS: PROTONIX 40 MG PO (08:23)
[2024-08-16] MEDS: CYMBALTA DELAYED RELEASE 60 MG PO (08:23)
[2024-08-16] MEDS: ZESTRIL 2.5 MG PO (08:23)
[2024-08-16] MEDS: FARXIGA 10 MG PO (08:24)
[2024-08-16] MEDS: SENOKOT-S 1 TABLET PO (08:24)
[2024-08-16] MEDS: COREG 3.125 MG PO ×2 (08:24→19:38)
[2024-08-16] MEDS: THERAGRAN 1 TABLET PO (08:24)
[2024-08-16] MEDS: ASPIR LOW (ENTERIC COATED) 81 MG PO (08:24)
[2024-08-16] MEDS: DELTASONE 40 MG PO (08:25)
[2024-08-16] MEDS: KCL 20 MEQ PO (08:28)
--- NOTE | 2024-08-16 10:15 | PTCARENOTE ---
Patient assisted to the chair, orthostatic vitals obtained lying 99/50, siting 96/66, standing 85/67, HR 70-78. Patient shaky with standing but resolved when he was able to place his hands his bedside table. Using 4 point cane, took a few steps
unassisted to the chair. Instructed to use call saini for nursing assistance with ambulation. Using urinal at bedside. A-Fib, V-paced, frequent PVC's, BBB HR 60-70's. Sat in chair BP rechecked 100/68, denies lightheadedness. Call saini in hand
[2024-08-16 11:20] LABS: Glucose - Point of Care 169 mg/dl (70-99)
[2024-08-16] MEDS: PRED FORTE 1% EYE DROPS RIGHT EYE (11:21)
[2024-08-16] MEDS: NOVOLOG FLEXPEN 15 UNITS SC ×2 (11:46→17:34)
[2024-08-16] MEDS: PRED FORTE 1% EYE DROPS 1 DROP RIGHT EYE ×3 (11:46→22:31)
[2024-08-16] MEDS: NOVOLOG FLEXPEN-LOW RESISTANCE 1 UNITS SC (11:46)
--- NOTE | 2024-08-16 13:27 | W.PN.NEPH.PH ---
Today's Communication / Plan
-
start low dose midodrine
Assessment/Plan
-
Assessment
CHINEDU
CKD3b
Heart failure reduced ejection fraction decompensated wedge 38
Severe aortic stenosis-not severe on recent LHC/RHC/dobutamine challenge
Moderate MR/TR
Smoking, alcohol use
Coronary artery disease with bypass
diabetes mellitus type 2
A-fib pacer
Hypertension
Plan
Wt is stable and stable renal function cr 1.6
ok to hold lasix today
When restarted will use oral Lasix 80 mg daily, possibly next 24-48h
ok to start low dose midodrine for BP support
on low dose ACEI per cards
cont SGLT2I
follow BMP
Follow orthostasis, start TEDs
d/w nursing, pt, and
-
-
Date of Service: August 16, 2024
CC / HPI / ROS
-
Chief Complaint:
CHINEDU
History of Present Illness:
CHINEDU/Cr stable 1.6
K stable
BP stable low but orthostatic
diuresed well with IV lasix for decompensated HF, now on hold
weight stable
Review of Systems:
no CP/SOB
feels shaky on standing, bp drops but not significantly
Labs
-
Labs:
WBC 9.5 10^3/uL (4.8-10.8) 08/15/24 03:34
RBC 3.36 10^6/uL (4.70-6.10) L 08/15/24 03:34
Hgb 10.9 g/dL (13.0-18.0) L 08/15/24 03:34
Hct 33.1 % (39.0-52.0) L 08/15/24 03:34
Plt Count 293 10^3/uL (130-400) 08/15/24 03:34
Sodium 135 mmol/L (135-145) 08/16/24 04:17
Potassium 4.7 mmol/L (3.5-5.1) 08/16/24 04:17
Chloride 97 mmol/L (98-107) L 08/16/24 04:17
Carbon Dioxide 29 mmol/L (22-30) 08/16/24 04:17
BUN 46 mg/dl (9-20) H 08/16/24 04:17
Creatinine 1.6 mg/dL (0.7-1.3) H 08/16/24 04:17
eGFR 44.65 08/16/24 04:17
Glucose 117 mg/dl (70-99) H 08/16/24 04:17
Calcium 9.4 mg/dl (8.4-10.2) 08/16/24 04:17
Phosphorus 2.9 mg/dl (2.5-4.5) 08/07/24 04:54
Enp-F-Rcdnmqostkf Pept 4590 pg/ml 08/05/24 16:37
Albumin 3.9 g/dl (3.5-5.0) 08/05/24 17:04
Physical Exam
-
Vital Signs:
Vital Signs
Temp Pulse Resp BP Pulse Ox
97.4 F 76 16 95/53 97
08/16/24 11:15 08/16/24 12:00 08/16/24 11:15 08/16/24 11:16 08/16/24 11:15
Cardiovascular:: Regular rate and rhythm
Respiratory:: Bilateral: CTA
Lung Excursion:: Normal
Abdomen:: Nontender and Soft
Extremity Edema:: None: Bilateral:
Alfred Catheter: No
--- NOTE | 2024-08-16 14:23 | CM ---
Reviewed chart. Met with Mr and Mrs. Russo to review discharge plans. We reviewed SNF/Rehab. and he is agreeable to going to SNF/Rehab. We reviewed options for SNF and they have selected [facility], [facility] and [facility]
home. Telephone call to [facility] admission to make the referral. Left message. Sent the referral. Telephone call to [facility] Admission to make the referral. [facility] is not accepting any new referrals from outside their
community. Sent referral. Telephone call to [facility] Admissions to make the referral. Left message. Sent the referral. Awaiting to see if any bed availability at above SNF's. Medical work-up in progress. The discharge plan is to go to
SNF/Rehab. when bed available and medically stable.
--- NOTE | 2024-08-16 15:03 | W.PN.CARDCBS ---
Today's Communication / Plan
-
Continue to hold diuretics. Creatinine stable, weight stable,.
Resume diuretics once okay with nephrology
Consider midodrine for blood pressure support
Continue rate control for persistent atrial fibrillation. Continue Xarelto
Impression / Plan
-
.
Primary Care Provider: Dr. Glasgow
Primary Service Or Work Dispatcher: Dr. Moreno
Impression:
presented with respiratory distress with diffuse wheezing bilaterally, hypoxia, and O2 Sats 85%
Acute on chronic HFrEF, NYHA class 3-4
Low flow low gradient / Moderate to severe with peak/mean gradients 38/21, WES 1.1 cm�. low-flow/low gradient severe , mild AI, echo 07/23/2024
CM w/ variable EF, most recent echo 07/23/2024 w/ decline in EF 30-35%
Right/left heart cath 08/12/2024: Significantly elevated right and left-sided filling pressures, normal cardiac output, significant [place] CAD, patent bypass grafts, dobutamine challenge did not reveal true severe
CHINEDU on CKD 3b
Fall at home, possibly syncope
COPD
Hypomagnesemia
Permanent atrial fibrillation
Chronic Xarelto OAC, creat clearance 39 based on creat 1.9 08/06/2024. Creat clearance 36.6 based on creat 2.0 08/13/2024
s/p [employer] ICD 2014 s/p generator change 12/25/22
CAD
s/p CABG with VERNON to LAD and SVG to L PLB in 2008
cath with balloon angioplasty at VERNON to LAD ostial region in 2014
Type 2 DM
HLD
HTN
BPH
GERD
Ongoing tobacco use
ETOH use disorder, likely moderate to severe
LBBB
ECHO 12/20/19: 25-30%, global hypokinesis with mid anteroseptal, mid anterior, apical akinesis, dyskinesis of inferior apex, MAC, mild to moderate , peak/mean gradients 37/18 mmHg, WES 1.0 cm�, mild TR, PAP 37 mmHg
Echo 06/09/20: EF 25-30%, mild MR, mod peak/mean 30/15 mmHg WES 1.3 cm sq, dilated RV with grossly normal function
Echo 10/25/22: EF 45%, apical and anteroseptal wall akinesis, trace MR, mod to sev with peak/mean 33/19 mmHg and WES 0.8 cm sq
Echo 07/23/2024: EF 35% (visually 30 to 35%, mid to distal anteroseptal and apical akinesis, normal RV size and function, calcified, restricted AV. Peak/mean AV gradients 38/21. WES 1.1 cm�. Visually AV appears more stenotic, question whether there
could be a low flow/low gradient severe . Mild AI I. Mild to moderate TR, PAP 50 to 55 mmHg, mild to moderate MR
[facility] 08/12/2024: RA 19, PA 71/34, PCWP 38 with V waves to 58. CO/CI 4.65/2.25.
Significant [place] CAD, patent bypass grafts including SVG--distal circumflex and VERNON--LAD.
Dobutamine challenge did not reveal true severe aortic stenosis
Plan:
Cont tx of HF -[facility] 08/13/2024 showed significant elevated R/L heart filling pressures
-Cont to hold diuresis as he remains orthostatic
-would consider midodrine
-Weight was down over 10 lbs from admission. Wt continued to come down even without diuretics and remains stable.
-Lasix had been increased to 80 mg IV BID after cath 08/12 Lasix dose has varied during this admission based on changing renal function.
-Is and Os negative over 3L last 48 hrs
-appreciate nephrology input, would consider resuming oral lasix next 24 hrs if ok with nephrology
nephrology considering lasix 80 mg daily ( He was taking Lasix 40 mg PO daily prior to admission )
EF 35% by echo 07/23/24 and was as high as 45% by echo 10/25/22, but back in 2019 EF was 25%.
-Outpatient dose of Coreg 3.125 mg BID has been continued
-Outpatient dose of Jardiance 10 mg daily has changed to Farxiga 10 mg daily due to formulary changes
-Patient is not chronically on ISAAC/ARB/ARNI/or aldosterone antagonist due to CHINEDU
Continues V pacing
Repleate lytes as needed.
Appreciate nephrology input: CHINEDU on CKD 3b
-creat in stable range down to 1.6 which is his baseline (prior to admission cr 1.7-1.9)
Cont pulm toilet.
-Cont oral prednisone
Echo concerning for symptomatic severe in the setting of significant LV dysfunction/low gradient. R/LHC w/ Dobutamine challenge -did not reveal true severe
Patient with fall prior to admission and when ICD interrogated 08/06/2024 finding no sustained arrhythmias, 100% A-fib, 50% ventricular paced. No arrhythmic etiology to this event
Patient has persistent Afib.
Cont rate control
No plans for rhythm control at this point.
Outpatient dose of Xarelto 15 mg resumed following cath 08/12/2024 (creat clearance 26.6)
Discussed with nursing and family at bedside
Presented 08/05/2024 with severe shortness of breath and weakness with minimal exertion. Denies weight gain. Wt 180 lbs in cardiology office 07/06/2024. Overall outpatient wt down 24 lbs over past year (wt 204 lbs 05/2023). Reports 20 pound
weight loss in past 6 months. reports significant decline in past 2 to 3 weeks with worsening weakness and has been unable to support him with ambulation. Patient can only walk very short distance such as to bathroom without becoming weak and
having falls. He has had multiple falls in the last few weeks. Complains of dizziness, feeling like he blacks out, leading to fall. Patient reports no alcohol in the past week but previously drinking 2-3 vodka drinks daily.
Progress Note - Service Or Work Dispatcher
Subjective
Date of Service: August 16, 2024
Pt seen and examined. No complaints. No chest pain or shortness of breath.
Objective
Labs:
08/15/24 03:34
08/16/24 04:17
Labs
Hgb 10.9 g/dL (13.0-18.0) L 08/15/24 03:34
Hct 33.1 % (39.0-52.0) L 08/15/24 03:34
Plt Count 293 10^3/uL (130-400) 08/15/24 03:34
APTT Cancelled 08/12/24 12:50
Sodium 135 mmol/L (135-145) 08/16/24 04:17
Potassium 4.7 mmol/L (3.5-5.1) 08/16/24 04:17
BUN 46 mg/dl (9-20) H 08/16/24 04:17
Creatinine 1.6 mg/dL (0.7-1.3) H 08/16/24 04:17
Glucose 117 mg/dl (70-99) H 08/16/24 04:17
Vital Signs and I&O:
Vital Signs
Temp Pulse Resp BP Pulse Ox
97.4 F 76 16 95/53 97
08/16/24 11:15 08/16/24 12:00 08/16/24 11:15 08/16/24 11:16 08/16/24 11:15
Vital Signs
Temp Pulse Resp BP Pulse Ox
97.4 F 76 16 95/53 97
08/16/24 11:15 08/16/24 12:00 08/16/24 11:15 08/16/24 11:16 08/16/24 11:15
Intake & Output
08/14/24 08/15/24 08/16/24 08/17/24
06:59 06:59 06:59 06:59
Intake Total 480 / 480 600 / 600 360 / 360 860 / 860
Output Total 2225 / 2225 1550 / 1550 200 / 200 450 / 450
Balance -1745 / -1745 -950 / -950 160 / 160 410 / 410
Physical Exam
Physical Exam
General: No acute distress, AAOX3
Neck: Negative JVD
Heart: Irregular, Negative S3 positive S1/S2, Negative S4, No murmur
Lungs: CTA b/l, negative wheezes/rales/rhonchi
Abd: Positive BS, NT/ND, neg rebound/rigidity/guarding
Ext: Negative cyanosis/clubbing/edema
Neuro: nonfocal
[2024-08-16] MEDS: ProAmatine 2.5 MG PO (17:30)
[2024-08-16] MEDS: CRESTOR 40 MG PO (17:31)
[2024-08-16] MEDS: XARELTO 15 MG PO (17:31)
[2024-08-16 17:35] LABS: Glucose - Point of Care 133 mg/dl (70-99)
[2024-08-16] MEDS: NOVOLOG FLEXPEN-LOW RESISTANCE SC (17:35)
--- NOTE | 2024-08-16 17:37 | W.PN.HOSP.TC ---
Today's Communication/Plan
-
compression therapy, low dose midodrine
eventual lasix resumption
DC planning to SNF
Assessment / Plan
Assessment / Plan
Assessment:
Acute on chronic systolic CHF
Acute hypoxic respiratory insufficiency - Improved
Severe
- s/p TTE 07/23 with concern for low flow/low gradient severe ; mild to moderate MR. Compared to prior study 04/01/2023 aortic valve gradients are lower than noted previously but visually aortic valve appears severely stenotic. Left ventricular
ejection fraction previously noted to be 45 to 50% and now visually 30 to 35%. Pulmonary artery pressure previously 34 mmHg now 50 to 55 mmHg.
- GDMT: continue Coreg, Jardiance
- 08/09 Cardiology initially plan to do left/right heart catheterization although with creatinine elevation nephro input has been requested. Patient at risk of COLETTE. Unfortunately without heart catheterization patient at risk of further deterioration
of cardiac issues. Difficult situation.
- 08/10 patient unable to tolerate heart catheterization as became orthopneic on table with oxygen saturation going down. Was brought back to medical floor.
- S/p LHC/RHC 08/12 -showing increased right-sided pressure, normal cardiac index. Dobutamine challenge did not show any significant increase in transvalvular gradient for known .
- diuretics held for now by Cards/Renal
COPD flare up
-08/10 CXR increased pulmonary interstitial markings possibility of interstitial edema versus pneumonitis
-Maintain on duo-neb therapy
-Discontinued further morphine dosing.
-Bedside PFT done by pulmo
-IV Decadron has been discontinued. Dose decreased of prednisone to 40 mg daily > continue quick taper as possible
Orthostatic hypotension
-Patient reported to have shaking/getting lethargic on standing up by spouse
-Likely secondary to orthostatic hypotension, vitals positive, RN show similar event unfolding yesterday on ortho vitals check
-Continue repeat check twice daily
-On lowest dose of Coreg and lisinopril for heart issues
-continue compression stockings and now low dose midodrine per Nephrology
CHINEDU on CKD stage 3b
-Creatinine stable around 1.6
-weight down, on diuretic therapy.
-bladder scan ordered.
Acute anemia on chronic anemia
- Hbg stable around 8-9 range, continue monitor for bleeding issues.
- anemia indices normal, hemolysis panels negative
- OP GI f.u
CAD s/p CABG
Hx of HI
HX of ICD 2022
HLD
- continue ASA/Statin/BB
Essential HTN
- continue BP meds
NIDDM
-A1c: 7.0%
-Expect blood glucose to be uncontrolled with steroids use
-Diabetic HYDROTREATER OPERATOR help requested.
-Blood glucose controlled today on Lantus/NovoLog regimen. Will adjust further based on trend.
permanent Atrial Fibrillation
- continue Coreg
- restarted on xarelto
Hx Alcohol Abuse
Unstable Gait
- B12 normal, Folate normal, B1 pending
- msas discontinued
Scab on right 5th lateral toe suspected pressure injury, POA
-continue wound care
Chronic T12 compression deformity with possible superimposed acute/subacute component
Partially healed minimally displaced fractures involving the posterior left 9th through 12th ribs
hx of CVA - continue ASA/Statin
GERD - continue PPI
DVT ppx: xarelto
Code: DNR/DNI
Anticipated Discharge: > 48 hours
Subjective/Interval History
-
Date of Service: August 16, 2024
no complaints
Objective Data
-
Vital Signs:
Vital Signs
Temp Pulse Resp BP Pulse Ox
97.6 F 72 16 95/53 96
08/16/24 15:16 08/16/24 15:26 08/16/24 15:16 08/16/24 15:26 08/16/24 15:16
I&O
08/15/24 08/16/24 08/17/24
06:59 06:59 06:59
Intake Total 600 / 600 360 / 360 860 / 860
Output Total 1550 / 1550 200 / 200 750 / 750
Balance -950 / -950 160 / 160 110 / 110
Physical Exam
-
General: No Apparent Distress
HEENT: Normocephalic and Atraumatic
Respiratory: Negative Wheezes
Cardiac: Regular Rhythm and S1/S2
GI: Soft
Musculoskeletal: No Edema
Neuro: AO x 3
Psych: Calm
Data Reviewed
-
Total Time Spent with Patient (in minutes): 42
Labs: Labs Reviewed by me
[2024-08-16] MEDS: SENOKOT-S PO (19:39)
[2024-08-16 22:28] LABS: Glucose - Point of Care 222 mg/dl (70-99)
[2024-08-16] MEDS: LANTUS 0.18 UNITS SC (22:30)
--- NOTE | 2024-08-16 23:50 | PTCARENOTE ---
Received patient at change of shift. Afib with V pacing and PVCs on the monitor, HR in the 70s. No complaints from pt at this time call saini within reach.
[2024-08-17] VITALS (11 sets, daily range): BP systolic 88–116; BP diastolic 58–84; PULSE 61–82; O2SAT 99; BMI 23.6
[2024-08-17] MEDS: ERYTHROMYCIN 0.5% OPHTHALMIC OINTMENT RIGHT EYE ×2 (00:51→04:30)
[2024-08-17 05:04] LABS: Blood Urea Nitrogen 42 mg/dl (9-20); Calcium 9.3 mg/dl (8.4-10.2); Carbon Dioxide 28 mmol/L (22-30); Chloride 96 mmol/L (98-107); Estimated Creatinine Clearance 42 ml/min; Glucose 107 mg/dl (70-99); Potassium 4.3 mmol/L (3.5-5.1); Sodium 133 mmol/L (135-145); eGFR 41.52
[2024-08-17 07:15] LABS: Glucose - Point of Care 93 mg/dl (70-99)
[2024-08-17] MEDS: NOVOLOG FLEXPEN-LOW RESISTANCE SC ×2 (07:40→11:44)
[2024-08-17] MEDS: NOVOLOG FLEXPEN 15 UNITS SC ×3 (07:55→17:23)
--- NOTE | 2024-08-17 08:00 | PTCARENOTE ---
pt received from previous RN, oriented, in bed. Afib w/ occasional V-pacing and PVCs on the monitor. ICD. weakly palpable pulses. RA. pt denies SOB. pt OOB to chair w/ assist. voids. per pt had BM yesterday. procedural sites c/d/i. scattered
ecchymosis on arms, L knee and back. PIV. see worklist for VS, I&O, and assessment.
[2024-08-17] MEDS: SYMBICORT 160/4.5 MCG INHALER 2 PUFF INH ×2 (08:01→21:15)
[2024-08-17] MEDS: SPIRIVA RESPIMAT 2.5 MCG 2 PUFF INH (08:01)
[2024-08-17] MEDS: THERAGRAN 1 TABLET PO (08:24)
[2024-08-17] MEDS: DELTASONE 40 MG PO (08:24)
[2024-08-17] MEDS: COREG 3.125 MG PO ×2 (08:24→20:01)
[2024-08-17] MEDS: FARXIGA 10 MG PO (08:24)
[2024-08-17] MEDS: VITAMIN E 400 UNITS PO (08:24)
[2024-08-17] MEDS: PROTONIX 40 MG PO (08:24)
[2024-08-17] MEDS: CYMBALTA DELAYED RELEASE 60 MG PO (08:24)
[2024-08-17] MEDS: ASPIR LOW (ENTERIC COATED) 81 MG PO (08:24)
[2024-08-17] MEDS: ProAmatine 2.5 MG PO ×3 (08:24→17:23)
[2024-08-17] MEDS: PRED FORTE 1% EYE DROPS 1 DROP RIGHT EYE ×4 (08:27→21:20)
[2024-08-17] MEDS: ERYTHROMYCIN 0.5% OPHTHALMIC OINTMENT 1 APPLIC RIGHT EYE ×2 (08:27→11:44)
[2024-08-17] MEDS: MIRALAX PO (09:06)
[2024-08-17] MEDS: SENOKOT-S PO ×2 (09:06→20:00)
[2024-08-17 09:23] LABS: Hematocrit 30.7 % (39.0-52.0); Hemoglobin 9.7 g/dL (13.0-18.0); Mean Corp Hgb Conc. 31.6 g/dL (33.0-37.0); Mean Corpuscular Hgb 31.4 pg (27.0-31.0); Mean Corpuscular Volume 99.4 fL (80.0-94.0); Mean Platelet Volume 9.9 fL (7.4-10.4); Platelet Count 277 10^3/uL (130-400); Red Blood Cell Count 3.09 10^6/uL (4.70-6.10); Red Cell Dist. Width 14.1 % (11.5-14.5); White Blood Cell Count 8.5 10^3/uL (4.8-10.8)
[2024-08-17] MEDS: ZESTRIL PO (09:30)
--- NOTE | 2024-08-17 10:23 | PN.DE.MGMTRT ---
Insulin Management
- -
08/17/2024: Diabetes Management Follow up
Patient admitted 08/05 with weakness, SOB - acute on chronic CHF, recent multiple falls at home.
PMH: [place], CAD s/p CABG, CHF, Aortic Stenosis, COPD, ANTWAN, CVA, GERD, HTN, HCL, CKD3b and T2DM.
Prior to admission was taking metformin 1000 mg daily and Jardiance 10 mg daily. States he has had diabetes for over 20 years, his primary doctor, Dr. Glasgow manages his diabetes. A1C 7, cr 2, eGFR 34.16.
Patient is awake alert and oriented, able to discuss diabetes management.
Remains on tapered dose of steroids, contributing to persistent Hyperglycemia, glucose up to 248 @ dinner yesterday.
08/16 pre meal glucose range 133 to 222, requiring 1-2 units additional corrective insulin with meals. Received 18 units Lantus at HS, fasting glucose 98 POC this AM.
Will continue AC NovoLog to 15 units with HS Lantus to 18 units, Farxiga 10mg daily and low corrective insulin. MFM on hold, Cr 1.7 today.
Will cont to follow and make further insulin dose adjustments if necessary.
Discussed with nurse, pt.
Diabetes History
- -
Type of Diabetes: 2 requiring insulin
Pre-Admission Diabetes Regimen
08/17/24
04:20
Creatinine 1.7 H
Lab Results
Hemoglobin A1c 7.0 % (4.0-5.6) H 08/06/24 07:14
Insulin Pump Settings
IP Diabetes Regimen
08/16/24 08/16/24 08/16/24
11:19 17:33 22:26
Glucose
POC Glucose 169 H 133 H 222 H
08/17/24 08/17/24
04:20 07:14
Glucose 107 H
POC Glucose 93
Meal type: Dinner
Amount consumed: 100%
Patient Education
--- NOTE | 2024-08-17 11:18 | W.PN.HOSP.TC ---
Today's Communication/Plan
-
Lasix per Nephrology
continue low dose Midodrine
SNF dc planning
Assessment / Plan
Assessment / Plan
Assessment:
Acute on chronic systolic CHF
Acute hypoxic respiratory insufficiency - Improved
Severe
- s/p TTE 07/23 with concern for low flow/low gradient severe ; mild to moderate MR. Compared to prior study 04/01/2023 aortic valve gradients are lower than noted previously but visually aortic valve appears severely stenotic. Left ventricular
ejection fraction previously noted to be 45 to 50% and now visually 30 to 35%. Pulmonary artery pressure previously 34 mmHg now 50 to 55 mmHg.
- GDMT: continue Coreg, Jardiance
- 08/09 Cardiology initially plan to do left/right heart catheterization although with creatinine elevation nephro input has been requested. Patient at risk of COLETTE. Unfortunately without heart catheterization patient at risk of further deterioration
of cardiac issues. Difficult situation.
- 08/10 patient unable to tolerate heart catheterization as became orthopneic on table with oxygen saturation going down. Was brought back to medical floor.
- S/p LHC/RHC 08/12 -showing increased right-sided pressure, normal cardiac index. Dobutamine challenge did not show any significant increase in transvalvular gradient for known .
- diuretics possible resume today per Renal
COPD flare up
-08/10 CXR increased pulmonary interstitial markings possibility of interstitial edema versus pneumonitis
-Maintain on duo-neb therapy
-Discontinued further morphine dosing.
-Bedside PFT done by pulmo
-IV Decadron has been discontinued. Dose decreased of prednisone to 30mg x 3 days, 20mg x 3 days, 10mg x 3 days
Orthostatic hypotension
-Patient reported to have shaking/getting lethargic on standing up by spouse
-Likely secondary to orthostatic hypotension, vitals positive, RN show similar event unfolding yesterday on ortho vitals check
-Continue repeat check twice daily
-On lowest dose of Coreg and lisinopril for heart issues
-continue compression stockings and now low dose midodrine per Nephrology
CHINEDU on CKD stage 3b
-Creatinine stable around 1.6
-weight down, on diuretic therapy.
-bladder scan ordered.
Acute anemia on chronic anemia
- Hbg stable around 8-9 range, continue monitor for bleeding issues.
- anemia indices normal, hemolysis panels negative
- OP GI f.u
CAD s/p CABG
Hx of CO
HX of ICD 2022
HLD
- continue ASA/Statin/BB
Essential HTN
- continue BP meds
NIDDM
-A1c: 7.0%
-Expect blood glucose to be uncontrolled with steroids use
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
-Blood glucose controlled today on Lantus/NovoLog regimen. Will adjust further based on trend.
permanent Atrial Fibrillation
- continue Coreg/Xarelto
Hx Alcohol Abuse
Unstable Gait
- B12 normal, Folate normal, B1 pending
- msas discontinued
Scab on right 5th lateral toe suspected pressure injury, POA
-continue wound care
Chronic T12 compression deformity with possible superimposed acute/subacute component
Partially healed minimally displaced fractures involving the posterior left 9th through 12th ribs
hx of CVA - continue ASA/Statin
GERD - continue PPI
DVT ppx: xarelto
Code: DNR/DNI
Anticipated Discharge: 24 - 48 hours
Subjective/Interval History
-
Date of Service: August 17, 2024
no new complaints
Objective Data
-
Labs:
Laboratory Results
08/17/24 08/17/24
04:20 09:08
WBC 8.5
Hgb 9.7 L
Hct 30.7 L
Plt Count 277
Sodium 133 L
Potassium 4.3
Chloride 96 L
Carbon Dioxide 28
BUN 42 H
Creatinine 1.7 H
Glucose 107 H
Calcium 9.3
Vital Signs:
Vital Signs
Temp Pulse Resp BP Pulse Ox
97.4 F 64 16 116/63 96
08/17/24 07:18 08/17/24 10:00 08/17/24 08:06 08/17/24 07:16 08/17/24 08:06
I&O
08/16/24 08/17/24 08/18/24
06:59 06:59 06:59
Intake Total 360 / 360 860 / 860
Output Total 200 / 200 1625 / 1625
Balance 160 / 160 -765 / -765
Physical Exam
-
General: No Apparent Distress
HEENT: Normocephalic and Atraumatic
Respiratory: Negative Wheezes
Cardiac: Regular Rhythm and S1/S2
GI: Soft and Nontender
Musculoskeletal: No Edema
Neuro: AO x 3
Psych: Calm
Data Reviewed
-
Total Time Spent with Patient (in minutes): 41
Labs: Labs Reviewed by me
--- NOTE | 2024-08-17 11:43 | CM ---
Addendum entered by Brenda Niño 08/17/24 15:10:
[facility] does not have a bed. [facility] [place] has a bed available tomorrow. and Mrs. Russo are agreeable to transfer to [facility] [place]. The report number is ([phone]) and the fax number is ([phone]).
Original Note:
Reviewed chart. Met withMr. and Mrs. Russo to review discharge plans. Reviewed that [facility] not have an available bed. Reviewed other selections for SNF/Rehab. They have selected [facility] and
[facility]. Referrals sent. Awaiting to hear back regarding ability to accept. Medical work -up in progress. The discharge plan is to go to SNF/Rehab. when bed available and medically stable.
[2024-08-17 11:44] LABS: Glucose - Point of Care 127 mg/dl (70-99)
--- NOTE | 2024-08-17 12:10 | W.PN.NEPH.PH ---
Today's Communication / Plan
-
resume lasix
Assessment/Plan
-
Assessment
CHINEDU
CKD3b
Heart failure reduced ejection fraction decompensated wedge 38
Severe aortic stenosis-not severe on recent LHC/RHC/dobutamine challenge
Moderate MR/TR
Smoking, alcohol use
Coronary artery disease with bypass
diabetes mellitus type 2
A-fib pacer
Hypertension
Plan
CKD-stable renal function cr 1.7
wt is increasing today -resume lasix at 80mg daily
cont low dose midodrine for BP support
likely hold ACEI
cont SGLT2I
follow BMP
Follow orthostasis, start TEDs
d/w nursing, pt, and
likely need rehab
-
-
Date of Service: August 17, 2024
CC / HPI / ROS
-
Chief Complaint:
CHINEDU
History of Present Illness:
CHINEDU/Cr stable 1.7
K stable, n a low 133
BP stable on midodrine
diuresed well with IV lasix for decompensated HF, now on hold
weight is up
Review of Systems:
no CP/SOB at rest
no n/v
Labs
-
Labs:
WBC 8.5 10^3/uL (4.8-10.8) 08/17/24 09:08
RBC 3.09 10^6/uL (4.70-6.10) L 08/17/24 09:08
Hgb 9.7 g/dL (13.0-18.0) L 08/17/24 09:08
Hct 30.7 % (39.0-52.0) L 08/17/24 09:08
Plt Count 277 10^3/uL (130-400) 08/17/24 09:08
Sodium 133 mmol/L (135-145) L 08/17/24 04:20
Potassium 4.3 mmol/L (3.5-5.1) 08/17/24 04:20
Chloride 96 mmol/L (98-107) L 08/17/24 04:20
Carbon Dioxide 28 mmol/L (22-30) 08/17/24 04:20
BUN 42 mg/dl (9-20) H 08/17/24 04:20
Creatinine 1.7 mg/dL (0.7-1.3) H 08/17/24 04:20
eGFR 41.52 08/17/24 04:20
Glucose 107 mg/dl (70-99) H 08/17/24 04:20
Calcium 9.3 mg/dl (8.4-10.2) 08/17/24 04:20
Phosphorus 2.9 mg/dl (2.5-4.5) 08/07/24 04:54
Saz-S-Dqzzkdukvww Pept 4590 pg/ml 08/05/24 16:37
Albumin 3.9 g/dl (3.5-5.0) 08/05/24 17:04
Physical Exam
-
Vital Signs:
Vital Signs
Temp Pulse Resp BP Pulse Ox
97.3 F 63 18 110/65 100
08/17/24 11:52 08/17/24 11:51 08/17/24 11:52 08/17/24 11:51 08/17/24 11:52
Cardiovascular:: Regular rate and rhythm
Respiratory:: Bilateral: CTA
Lung Excursion:: Normal
Abdomen:: Nontender and Soft
Extremity Edema:: None: Bilateral:
Alfred Catheter: No
--- NOTE | 2024-08-17 12:30 | PTCARENOTE ---
pt OOB to chair for lunch, VSS. at bedside.
[2024-08-17] MEDS: LASIX 80 MG PO (12:46)
--- NOTE | 2024-08-17 13:05 | W.PN.CARDCBS ---
Addendum entered and electronically signed by Sunny Culver MD 08/17/24 13:29:
I saw and examined the patient.
The CREDIT ANALYSIS MANAGER or PA's note was reviewed and I agree with the note.
Comment: General: Well developed, well nourished in NAD.
Neck: Supple, no JVD, HJR, carotids +2 B/L, no bruits bilaterally.
Heart: Non displaced PMI, RRR, no murmurs, No S3, S4, no rubs.
Lungs: Scattered rhonchi
Extremities: No clubbing, cyanosis or edema bilaterally.
Neuro: Grossly nonfocal, awake, alert and oriented x3.
Stable cardiology status. Nephrology managing diuretics. Will sign off, call with questions.
Original Note:
Today's Communication / Plan
-
Lasix 80 mg PO daily per Nephro
Weight is down, Cre up to 1.7, but this is stable in comparison
Midodrine plus Coreg and lisinopril for GDMT
Impression / Plan
-
Primary Care Provider: Dr. Glasgow
Primary Credit Analysis Manager: Dr. Moreno
Impression:
presented with respiratory distress with diffuse wheezing bilaterally, hypoxia, and O2 Sats 85%
Acute on chronic HFrEF, NYHA class 3-4
Low flow low gradient / Moderate to severe with peak/mean gradients 38/21, WES 1.1 cm�. low-flow/low gradient severe , mild AI, echo 07/23/2024
CM w/ variable EF, most recent echo 07/23/2024 w/ decline in EF 30-35%
Right/left heart cath 08/12/2024: Significantly elevated right and left-sided filling pressures, normal cardiac output, significant [place] CAD, patent bypass grafts, dobutamine challenge did not reveal true severe
CHINEDU on CKD 3b
Fall at home, possibly syncope
COPD
Hypomagnesemia
Permanent atrial fibrillation
Chronic Xarelto OAC, creat clearance 39 based on creat 1.9 08/06/2024. Creat clearance 36.6 based on creat 2.0 08/13/2024
s/p [employer] ICD 2014 s/p generator change 12/25/22
CAD
s/p CABG with [facility] to LAD and SVG to L PLB in 2008
cath with balloon angioplasty at [facility] to LAD ostial region in 2014
Type 2 DM
HLD
HTN
BPH
GERD
Ongoing tobacco use
ETOH use disorder, likely moderate to severe
LBBB
ECHO 12/20/19: 25-30%, global hypokinesis with mid anteroseptal, mid anterior, apical akinesis, dyskinesis of inferior apex, MAC, mild to moderate , peak/mean gradients 37/18 mmHg, WES 1.0 cm�, mild TR, PAP 37 mmHg
Echo 06/09/20: EF 25-30%, mild MR, mod peak/mean 30/15 mmHg WES 1.3 cm sq, dilated RV with grossly normal function
Echo 10/25/22: EF 45%, apical and anteroseptal wall akinesis, trace MR, mod to sev with peak/mean 33/19 mmHg and WES 0.8 cm sq
Echo 07/23/2024: EF 35% (visually 30 to 35%, mid to distal anteroseptal and apical akinesis, normal RV size and function, calcified, restricted AV. Peak/mean AV gradients 38/21. WES 1.1 cm�. Visually AV appears more stenotic, question whether there
could be a low flow/low gradient severe . Mild AI I. Mild to moderate TR, PAP 50 to 55 mmHg, mild to moderate MR
RHC/LHC 08/12/2024: RA 19, PA 71/34, PCWP 38 with V waves to 58. CO/CI 4.65/2.25.
Significant [place] CAD, patent bypass grafts including SVG--distal circumflex and VERNON--LAD.
Dobutamine challenge did not reveal true severe aortic stenosis
Plan:
-Weight was as high as 190 lbs on 08/07/2024 and down to 178 lbs on 08/17/2024
-Patient was ordered Lasix IV at different doses earlier this admission and dose has been changing based on renal function. Currently ordered Lasix 80 mg PO daily starting 08/17/24 per Nephrology. Patient was taking Lasix 40 mg PO daily prior to
admission
-Nephrology following for CHINEDU on CKD 3b
-EF 35% by echo 07/23/24 and was as high as 45% by echo 10/25/22, but back in 2019 EF was 25%.
-Outpatient dose of Coreg 3.125 mg BID has been continued
-Outpatient dose of Jardiance 10 mg daily has changed to Farxiga 10 mg daily due to formulary changes
-Patient started on lisinopril 2.5 mg daily this admission and doses intermittently held for CHINEDU
-Also requiring midodrine 2.5 mg TID for orthostasis
-Echo was concerning for severe , but R/LHC w/ Dobutamine challenge 08/12/24 did not reveal true
-Patient with fall prior to admission and when ICD interrogated 08/06/2024 finding no sustained arrhythmias, 100% A-fib, 50% ventricular paced. No arrhythmic etiology to this event
-Patient has persistent Afib. No plans for rhythm control at this point. Outpatient dose of Xarelto was lowered to 15 mg daily due to reduced CrCl following cath
-Patient and looking into SNF for rehab
Presented 08/05/2024 with severe shortness of breath and weakness with minimal exertion. Denies weight gain. Wt 180 lbs in cardiology office 07/06/2024. Overall outpatient wt down 24 lbs over past year (wt 204 lbs 05/2023). Reports 20 pound
weight loss in past 6 months. reports significant decline in past 2 to 3 weeks with worsening weakness and has been unable to support him with ambulation. Patient can only walk very short distance such as to bathroom without becoming weak and
having falls. He has had multiple falls in the last few weeks. Complains of dizziness, feeling like he blacks out, leading to fall. Patient reports no alcohol in the past week but previously drinking 2-3 vodka drinks daily.
Progress Note - Credit Analysis Manager
Subjective
Date of Service: August 17, 2024
Less SOB
Objective
Labs:
08/17/24 09:08
08/17/24 04:20
Labs
Hgb 9.7 g/dL (13.0-18.0) L 08/17/24 09:08
Hct 30.7 % (39.0-52.0) L 08/17/24 09:08
Plt Count 277 10^3/uL (130-400) 08/17/24 09:08
APTT Cancelled 08/12/24 12:50
Sodium 133 mmol/L (135-145) L 08/17/24 04:20
Potassium 4.3 mmol/L (3.5-5.1) 08/17/24 04:20
BUN 42 mg/dl (9-20) H 08/17/24 04:20
Creatinine 1.7 mg/dL (0.7-1.3) H 08/17/24 04:20
Glucose 107 mg/dl (70-99) H 08/17/24 04:20
Vital Signs and I&O:
Vital Signs
Temp Pulse Resp BP Pulse Ox
97.3 F 81 18 110/65 100
08/17/24 11:52 08/17/24 12:00 08/17/24 11:52 08/17/24 12:46 08/17/24 11:52
Vital Signs
Temp Pulse Resp BP Pulse Ox
97.3 F 81 18 110/65 100
08/17/24 11:52 08/17/24 12:00 08/17/24 11:52 08/17/24 12:46 08/17/24 11:52
Intake & Output
08/15/24 08/16/24 08/17/24 08/18/24
06:59 06:59 06:59 06:59
Intake Total 600 / 600 360 / 360 860 / 860
Output Total 1550 / 1550 200 / 200 1625 / 1625 575 / 575
Balance -950 / -950 160 / 160 -765 / -765 -575 / -575
Physical Exam
Physical Exam
GEN: NAD. AAO x3
HEENT: MMM
LUNGS: RA. No audible wheeze
CV: Afib on tele.
ABD: ND
EXT: No edema B/L
NEURO: Gross non-focal
SKIN: No rash
--- NOTE | 2024-08-17 16:00 | PTCARENOTE ---
pt VSS, voiding in urinal. rifle case repairer spoke w/ .
[2024-08-17] MEDS: NOVOLOG FLEXPEN-LOW RESISTANCE 1 UNITS SC (17:23)
[2024-08-17] MEDS: CRESTOR 40 MG PO (17:23)
[2024-08-17] MEDS: XARELTO 15 MG PO (17:23)
[2024-08-17 17:24] LABS: Glucose - Point of Care 183 mg/dl (70-99)
[2024-08-17 20:48] LABS: Glucose - Point of Care 173 mg/dl (70-99)
[2024-08-17] MEDS: LANTUS 0.18 UNITS SC (21:19)
[2024-08-18 03:49] VITALS: BP 115/66
[2024-08-18 03:57] VITALS: BMI 23.5
[2024-08-18 05:07] LABS: Blood Urea Nitrogen 47 mg/dl (9-20); Calcium 9.3 mg/dl (8.4-10.2); Carbon Dioxide 29 mmol/L (22-30); Chloride 94 mmol/L (98-107); Estimated Creatinine Clearance 45 ml/min; Glucose 126 mg/dl (70-99); Potassium 4.6 mmol/L (3.5-5.1); Sodium 134 mmol/L (135-145); eGFR 44.65
[2024-08-18 06:43] LABS: Glucose - Point of Care 105 mg/dl (70-99)
[2024-08-18 07:24] VITALS: BP 130/59
[2024-08-18] MEDS: SYMBICORT 160/4.5 MCG INHALER 2 PUFF INH (07:26)
[2024-08-18] MEDS: SPIRIVA RESPIMAT 2.5 MCG 2 PUFF INH (07:26)
[2024-08-18] MEDS: NOVOLOG FLEXPEN-LOW RESISTANCE SC ×2 (07:45→13:35)
--- NOTE | 2024-08-18 08:02 | PN.DE.MGMTRT ---
Insulin Management
- -
08/18/2024: Diabetes Management Follow up
Patient admitted 08/05 with weakness, SOB - acute on chronic CHF, recent multiple falls at home.
PMH: RI, CAD s/p CABG, CHF, Aortic Stenosis, COPD, ANTWAN, CVA, GERD, HTN, HCL, CKD3b and T2DM.
Prior to admission was taking metformin 1000 mg daily and Jardiance 10 mg daily. States he has had diabetes for over 20 years, his primary doctor, Dr. Glasgow manages his diabetes. A1C 7%. Cr 1.6, eGFR 44.65 today.
Patient is awake alert and oriented, able to discuss diabetes management.
Remains on tapered dose of steroids, 30 mg daily.
08/17 pre meal glucose range 93 to 183, requiring only 1 unit additional corrective insulin with dinner. Received 18 units Lantus at HS, fasting glucose 105 POC this AM.
Will continue AC NovoLog to 15 units with HS Lantus to 18 units, Farxiga 10mg daily and low corrective insulin. Will not restart metformin Cr 1.6 today.
Will cont to follow and make further insulin dose adjustments if necessary. Patient for possible transfer to SNF today.
Discussed with nurse.
Diabetes History
- -
Type of Diabetes: 2 requiring insulin
Pre-Admission Diabetes Regimen
08/18/24
04:04
Creatinine 1.6 H
Lab Results
Hemoglobin A1c 7.0 % (4.0-5.6) H 08/06/24 07:14
Insulin Pump Settings
IP Diabetes Regimen
08/17/24 08/17/24 08/17/24
11:42 17:22 20:46
Glucose
POC Glucose 127 H 183 H 173 H
08/18/24 08/18/24
04:04 06:42
Glucose 126 H
POC Glucose 105 H
Meal type: Breakfast
Amount consumed: 100%
Amount consumed: 100%
Patient Education
[2024-08-18] MEDS: NOVOLOG FLEXPEN 15 UNITS SC (08:05)
[2024-08-18] MEDS: THERAGRAN 1 TABLET PO (08:05)
[2024-08-18] MEDS: LASIX 80 MG PO (08:05)
[2024-08-18] MEDS: FARXIGA 10 MG PO (08:05)
[2024-08-18] MEDS: PROTONIX 40 MG PO (08:05)
[2024-08-18] MEDS: CYMBALTA DELAYED RELEASE 60 MG PO (08:06)
[2024-08-18] MEDS: MIRALAX PO (08:06)
[2024-08-18] MEDS: ProAmatine 2.5 MG PO (08:06)
[2024-08-18] MEDS: PRED FORTE 1% EYE DROPS 1 DROP RIGHT EYE (08:06)
[2024-08-18] MEDS: ASPIR LOW (ENTERIC COATED) 81 MG PO (08:06)
[2024-08-18] MEDS: VITAMIN E 400 UNITS PO (08:06)
[2024-08-18] MEDS: DELTASONE 30 MG PO (08:06)
[2024-08-18] MEDS: COREG 3.125 MG PO (08:06)
[2024-08-18] MEDS: SENOKOT-S PO (08:07)
--- NOTE | 2024-08-18 10:20 | W.PN.NEPH.PH ---
Today's Communication / Plan
-
dc planning
Assessment/Plan
-
Assessment
CHINEDU
CKD3b
Heart failure reduced ejection fraction decompensated wedge 38
Severe aortic stenosis-not severe on recent LHC/RHC/dobutamine challenge
Moderate MR/TR
Smoking, alcohol use
Coronary artery disease with bypass
diabetes mellitus type 2
A-fib pacer
Hypertension
Plan
follow BMP
for rehab
continue midodrine
continue po lasix
BMP within 1 week after dc
no ACEI for now
-
-
Date of Service: August 18, 2024
CC / HPI / ROS
-
Chief Complaint:
CHINEDU
History of Present Illness:
CHINEDU/Cr stable 1.7
K stable, n a low 133
BP stable on midodrine
back on lasix po
Review of Systems:
no CP/SOB at rest
no n/v
denies orthostasis
Labs
-
Labs:
WBC 8.5 10^3/uL (4.8-10.8) 08/17/24 09:08
RBC 3.09 10^6/uL (4.70-6.10) L 08/17/24 09:08
Hgb 9.7 g/dL (13.0-18.0) L 08/17/24 09:08
Hct 30.7 % (39.0-52.0) L 08/17/24 09:08
Plt Count 277 10^3/uL (130-400) 08/17/24 09:08
Sodium 134 mmol/L (135-145) L 08/18/24 04:04
Potassium 4.6 mmol/L (3.5-5.1) 08/18/24 04:04
Chloride 94 mmol/L (98-107) L 08/18/24 04:04
Carbon Dioxide 29 mmol/L (22-30) 08/18/24 04:04
BUN 47 mg/dl (9-20) H 08/18/24 04:04
Creatinine 1.6 mg/dL (0.7-1.3) H 08/18/24 04:04
eGFR 44.65 08/18/24 04:04
Glucose 126 mg/dl (70-99) H 08/18/24 04:04
Calcium 9.3 mg/dl (8.4-10.2) 08/18/24 04:04
Phosphorus 2.9 mg/dl (2.5-4.5) 08/07/24 04:54
Hgb-Y-Tfqimlvdvrt Pept 4590 pg/ml 08/05/24 16:37
Albumin 3.9 g/dl (3.5-5.0) 08/05/24 17:04
Physical Exam
-
Vital Signs:
Vital Signs
Temp Pulse Resp BP Pulse Ox
98.6 F 70 18 130/59 96
08/18/24 07:26 08/18/24 08:05 08/18/24 07:26 08/18/24 08:05 08/18/24 07:26
Cardiovascular:: Regular rate and rhythm
Respiratory:: Bilateral: CTA
Lung Excursion:: Normal
Abdomen:: Nontender and Soft
Bowel Sounds:: Normal
Extremity Edema:: None: Bilateral:
[2024-08-18 12:18] VITALS: BP 101/46
--- NOTE | 2024-08-18 12:45 | CM ---
Reviewed chart. Met with and Mrs. Russo to review discharge plans. Reviewed transportation wheelchair van and out of pocket cost for the wheelchair. Family has selected to provide transportation to [place]. Medial work-up in progress.
The discharge plan is to go to [facility] when medically stable.
--- NOTE | 2024-08-18 12:46 | W.PN.HOSP.TC ---
Today's Communication/Plan
-
dc to snf
Assessment / Plan
Assessment / Plan
Assessment:
Acute on chronic systolic CHF
Acute hypoxic respiratory insufficiency - Improved
Severe
- s/p TTE 07/23 with concern for low flow/low gradient severe ; mild to moderate MR. Compared to prior study 04/01/2023 aortic valve gradients are lower than noted previously but visually aortic valve appears severely stenotic. Left ventricular
ejection fraction previously noted to be 45 to 50% and now visually 30 to 35%. Pulmonary artery pressure previously 34 mmHg now 50 to 55 mmHg.
- GDMT: continue Coreg, Jardiance
- 08/09 Cardiology initially plan to do left/right heart catheterization although with creatinine elevation nephro input has been requested. Patient at risk of COLETTE. Unfortunately without heart catheterization patient at risk of further deterioration
of cardiac issues. Difficult situation.
- 08/10 patient unable to tolerate heart catheterization as became orthopneic on table with oxygen saturation going down. Was brought back to medical floor.
- S/p LHC/RHC 08/12 -showing increased right-sided pressure, normal cardiac index. Dobutamine challenge did not show any significant increase in transvalvular gradient for known .
- diuretics possible resume today per Renal
COPD flare up
-08/10 CXR increased pulmonary interstitial markings possibility of interstitial edema versus pneumonitis
-Maintain on duo-neb therapy
-Discontinued further morphine dosing.
-Bedside PFT done by pulmo
-IV Decadron has been discontinued. Dose decreased of prednisone to 30mg x 3 days, 20mg x 3 days, 10mg x 3 days
Orthostatic hypotension
-Patient reported to have shaking/getting lethargic on standing up by spouse
-Likely secondary to orthostatic hypotension, vitals positive, RN show similar event unfolding yesterday on ortho vitals check
-Continue repeat check twice daily
-On lowest dose of Coreg and lisinopril for heart issues
-continue compression stockings and now low dose midodrine per Nephrology
CHINEDU on CKD stage 3b
-Creatinine stable around 1.6
-weight down, on diuretic therapy.
-bladder scan ordered.
Acute anemia on chronic anemia
- Hbg stable around 8-9 range, continue monitor for bleeding issues.
- anemia indices normal, hemolysis panels negative
- OP GI f.u
CAD s/p CABG
Hx of IN
HX of ICD 2022
HLD
- continue ASA/Statin/BB
Essential HTN
- continue BP meds
NIDDM
-A1c: 7.0%
-Expect blood glucose to be uncontrolled with steroids use
-Diabetic SUPERVISOR FRONT help requested.
-Blood glucose controlled today on Lantus/NovoLog regimen. Will adjust further based on trend.
permanent Atrial Fibrillation
- continue Coreg/Xarelto
Hx Alcohol Abuse
Unstable Gait
- B12 normal, Folate normal, B1 pending
- msas discontinued
Scab on right 5th lateral toe suspected pressure injury, POA
-continue wound care
Chronic T12 compression deformity with possible superimposed acute/subacute component
Partially healed minimally displaced fractures involving the posterior left 9th through 12th ribs
hx of CVA - continue ASA/Statin
GERD - continue PPI
DVT ppx: xarelto
Code: DNR/DNI
More than 30 minutes spent in discharge including
Final examination of the patient
Summarizing hospital stay
Instructions for continuing care to all relevant caregivers
Preparation of discharge records, prescriptions, and referral forms
Total time spent (in minutes): 41
Anticipated Discharge: Today
Subjective/Interval History
-
Date of Service: August 18, 2024
no complaints
Objective Data
-
Labs:
Laboratory Results
08/18/24
04:04
Sodium 134 L
Potassium 4.6
Chloride 94 L
Carbon Dioxide 29
BUN 47 H
Creatinine 1.6 H
Glucose 126 H
Calcium 9.3
Vital Signs:
Vital Signs
Temp Pulse Resp BP Pulse Ox
98.5 F 70 16 130/59 95
08/18/24 12:18 08/18/24 08:05 08/18/24 12:18 08/18/24 08:05 08/18/24 12:18
I&O
08/17/24 08/18/24 08/19/24
06:59 06:59 06:59
Intake Total 860 / 860
Output Total 1625 / 1625 2225 / 2225
Balance -765 / -765 -2225 / -2225
Physical Exam
-
General: No Apparent Distress
HEENT: Normocephalic and Atraumatic
Respiratory: Negative Wheezes
Cardiac: Regular Rhythm and S1/S2
GI: Soft and Nontender
Genito-urinary: No Costovertebral Tender
Musculoskeletal: No Edema
Neuro: AO x 3
Psych: Calm
Data Reviewed
-
Total Time Spent with Patient (in minutes): 41
Labs: Labs Reviewed by me
[2024-08-18] MEDS: NOVOLOG FLEXPEN SC (12:52)
--- NOTE | 2024-08-18 12:54 | PTCARENOTE ---
Pt AOx3, no complaints of pain or discomfort. Assist x1 OOB with walker. Pt showered today. Plan for dc later. Afib with V-pacing on tele, VSS. Call saini within reach.
--- NOTE | 2024-08-18 12:54 | W.DS.TRANS ---
DC Summary - Cath Lab Radiological Technologist
-
Discharge Instructions:
Sleep Apnea Risk Intermediate
Discharge Diagnosis/Procedures acute on Chronic CHF, cath 08/10, acute COPD,
orthostatic hypotension, CHINEDU, acute anemia
Diet 2 Gram Sodium,Low Cholesterol
Activity As tolerated
Bathing Restrictions None
Blood Work repeat BMP in 1 week
Other Services OT,PT
Specialty Instructions Weigh Daily
Instructions: *CBC Heart Failure Instructions
Stand-Alone Forms: DC Instructions- Cath/EP Lab
Changes to Home Medications: No
Discharge Medications:
DC Medications w/original date entered in Synchronized
pantoprazole 40 mg tablet,delayed release 40 mg PO DAILY Gastrointestinal issue 09/28/13
rosuvastatin 40 mg tablet (Crestor) 40 mg PO QPM High cholesterol 12/19/19
carvedilol 3.125 mg tablet 3.125 mg PO BID Blood pressure 03/30/20
multivitamin with folic acid 400 mcg tablet (Tab-A-Elli) 1 tab PO DAILY Supplement 03/30/20
aspirin 81 mg tablet,delayed release 81 mg PO DAILY Blood clot prevention/tx 06/09/20
coenzyme Q10 100 mg capsule (Co Q-10) 100 mg PO DAILY Supplement 06/09/20
empagliflozin 10 mg tablet (Jardiance) 10 mg PO DAILY Diabetes 12/04/22
vitamin E 400 unit tablet 400 unit PO DAILY Supplement 12/04/22
folic acid 1 mg tablet 1 mg PO DAILY #30 tabs 04/04/23
duloxetine 60 mg capsule,delayed release (Cymbalta) 60 mg PO DAILY Depression 08/05/24
erythromycin 5 mg/gram (0.5 %) eye ointment See Rx Instructions .Route .COMPLEX 08/06/24
prednisolone acetate 1 % eye drops,suspension 1 drp RIGHT EYE QID 08/06/24
Insulin Glargine Lantus [Lantus] 18 units As Directed mls/hr SC HS 08/18/24
acetaminophen 325 mg tablet 650 mg (2 x 325 mg) PO Q4HPRN PRN mild pain #100 tabs 08/18/24
albuterol sulfate 90 mcg/actuation aerosol inhaler 2 puff inhalation R Q4HPRN PRN SOB/wheeze #8.5 grams 08/18/24
budesonide-formoterol HFA 160 mcg-4.5 mcg/actuation aerosol inhaler (Symbicort) 2 puff inhalation R BID #10.2 grams 08/18/24
furosemide 80 mg tablet 80 mg PO DAILY #30 tabs 08/18/24
insulin aspart U-100 100 unit/mL (3 mL) subcutaneous pen 15 unit (0.15 mL) SC AC #15 mL 08/18/24
midodrine 2.5 mg tablet 2.5 mg PO TID@0800,1300,1800 #90 tabs 08/18/24
polyethylene glycol 3350 17 gram oral powder packet 17 g PO DAILY #30 ea 08/18/24
potassium chloride 20 mEq tablet,extended release(part/cryst) (Klor-Con M) 20 meq PO DAILY Supplement #30 tabs 08/18/24
prednisone 20 mg tablet 20 mg PO DIRECTED #9 tabs 08/18/24
rivaroxaban 15 mg tablet (Xarelto) 15 mg PO QPM #30 tabs 08/18/24
tiotropium bromide 2.5 mcg/actuation mist for inhalation (Spiriva Respimat) 2 puff inhalation R DAILY #4 grams 08/18/24
Home Medication Changes
Pending Results: No
Total time spent discharging patient (in min): 41
== END 2024-08-18 13:42 | DRG 286 ==
LOC: IVU 21:39
PROVIDERS: Hospitalist; Internal Medicine Cardiovascular Disease; Internal Medicine Interventional Cardiology; Nurse Practitioner Family; Registered Nurse; Student in an Organized Health Care Education/Training Program; ADMITTING PHYSICIAN Student in an Organized Health Care Education/Training Program; ATTENDING PHYSICIAN Internal Medicine; CONSULT PHYSICIAN Internal Medicine; CONSULT PHYSICIAN Internal Medicine Cardiovascular Disease; CONSULT PHYSICIAN Specialist; EMERGENCY PHYSICIAN Emergency Medicine; FAMILY PHYSICIAN Internal Medicine
PROC: 4B02XTZ Measurement of Cardiac Defibrillator, External Approach (ICD-10-PCS; 2024-08-06)
PROC: B2111ZZ Fluoroscopy of Multiple Coronary Arteries using Low Osmolar Contrast (ICD-10-PCS; 2024-08-12)
PROC: 3E083KZ Introduction of Other Diagnostic Substance into Heart, Percutaneous Approach (ICD-10-PCS; 2024-08-12)
PROC: 4A023N8 Measurement of Cardiac Sampling and Pressure, Bilateral, Percutaneous Approach (ICD-10-PCS; 2024-08-12)
PROC: B2131ZZ Fluoroscopy of Multiple Coronary Artery Bypass Grafts using Low Osmolar Contrast (ICD-10-PCS; 2024-08-12)
DX: I13.0 Hypertensive heart and chronic kidney disease with heart failure and stage 1 through stage 4 chronic kidney disease, or unspecified chronic kidney disease (principal); I50.23 Acute on chronic systolic (congestive) heart failure; J44.1 Chronic obstructive pulmonary disease with (acute) exacerbation; N17.9 Acute kidney failure, unspecified; I48.21 Permanent atrial fibrillation; N18.32 Chronic kidney disease, stage 3b; E11.22 Type 2 diabetes mellitus with diabetic chronic kidney disease; Z79.4 Long term (current) use of insulin; I95.1 Orthostatic hypotension; D64.9 Anemia, unspecified; R09.02 Hypoxemia; R06.89 Other abnormalities of breathing; F10.10 Alcohol abuse, uncomplicated; I25.10 Atherosclerotic heart disease of native coronary artery without angina pectoris; Z95.1 Presence of aortocoronary bypass graft; I25.2 Old myocardial infarction; Z95.810 Presence of automatic (implantable) cardiac defibrillator; E78.00 Pure hypercholesterolemia, unspecified; Z79.82 Long term (current) use of aspirin; Z79.899 Other long term (current) drug therapy; Z79.01 Long term (current) use of anticoagulants; Z86.73 Personal history of transient ischemic attack (TIA), and cerebral infarction without residual deficits; K21.9 Gastro-esophageal reflux disease without esophagitis; R29.6 Repeated falls; Z79.84 Long term (current) use of oral hypoglycemic drugs; F17.210 Nicotine dependence, cigarettes, uncomplicated; I08.3 Combined rheumatic disorders of mitral, aortic and tricuspid valves; R62.7 Adult failure to thrive; Z66 Do not resuscitate; F32.A Depression, unspecified; I25.5 Ischemic cardiomyopathy; N40.0 Benign prostatic hyperplasia without lower urinary tract symptoms; I44.7 Left bundle-branch block, unspecified; E83.42 Hypomagnesemia; G47.33 Obstructive sleep apnea (adult) (pediatric); L89.896 Pressure-induced deep tissue damage of other site
CPT/HCPCS: 70450; 71045; 72125; 74176; 76937; 80048; 80053; 80061; 82140; 82607; 82728; 82746; 82947; 82962; 83010; 83036; 83540; 83550; 83615; 83690; 83735; 83880; 84100; 84425; 84443; 84484; 85025; 85027; 85045; 85730; 86880; 93005; 93461; 93463; 94640; 96374; 96375; 97116; 97163; 97167; 97530; 99152; 99153; 99285; 99406; Q9967